=== PATIENT | female | born 1965 | race Caucasian/White ===

== ENCOUNTER → 2016-09-09 | Outpatient (CLI) | payer OTHER ==
[2015-12-05 15:00] VITALS: BP 98/66
[~2016-09-09] MED LIST: ACET325T16 PO; FERR324T5 PO; GLUC1TAB26 PO; HYDR-2666 PO; HYDR-2678 PO; LEVO500T38 PO; LORA10TA68 PO; METR500T PO; MULT-245 PO
--- NOTE | 2016-09-09 09:33 | RAD ---
DATE: 09/09/2016 EXAM: DIGITAL SCREEN BILAT W/CAD HISTORY: Routine screening COMPARISON: 08/27/2015 This study was interpreted with the benefit of Computerized Aided Detection (CAD). FINDINGS: The breasts are heterogeneously dense. No new or enlarging breast densities are seen. Numerous microcalcifications are again noted in both breasts. The distribution suggests a benign etiology such as causing adenosis. IMPRESSION: Stable mammograms without evidence of malignancy. BI-RADS CATEGORY: 2 BENIGN FINDING(S) RECOMMENDED FOLLOW-UP: 12M 12 MONTH FOLLOW-UP PQRS compliance statement: Patient information was entered into a reminder system with a target due date for the next mammogram. Mammography is a sensitive method for finding small breast cancers, but it does not detect them all and is not a substitute for careful clinical examination. A negative mammogram does not negate a clinically suspicious finding and should not result in delay in biopsying a clinically suspicious abnormality. "Our facility is accredited by the [employer] Mammography Program."
== END | disposition home or self-care (01) ==
LOC: MAMMO 08:00
PROVIDERS: ATTEND Family Medicine
DX: Z12.31 Encounter for screening mammogram for malignant neoplasm of breast (principal)
CPT/HCPCS: G0202; 77067

== ENCOUNTER 2017-01-15 08:17 | Emergency (ER) | payer OTHER ==
[~2017-01-15] VITALS: Ht 165.1 cm; Wt 74.8 kg
[~2017-01-15 08:17] MED LIST changes: -HYDR-2666 PO; +HYDR-2758 PO; -LEVO500T38 PO; +LEVO500T59 PO
--- NOTE | 2017-01-15 08:19 | PHYS DOC ---
Past Medical History Past Medical History: Diverticulosis Past Surgical History: , Other Additional Past Surgical Histo: carpal tunnel, abscess removed, biopsy on face Alcohol Use: None Drug Use: None Adult General Chief Complaint Chief Complaint: EYE PROBLEMS HPI HPI Patient is a 51 year old who presents with right eyelid swelling/ wound. She states it started 4 days ago when she saw Dr. Pichardo yesterday was started on Augmentin. She's had 2 doses of medicine but the wound is been getting larger. She denies any fevers chills nausea vomiting. She denies any pain with extraocular movements. She states her last tetanus shot was within the last 5 years. She denies any past medical history or on any medications or have allergies medications. Review of Systems Review of Systems Constitutional: Denies fever or chills [] Eyes: Denies change in visual acuity, redness, or eye pain [] HENT: Denies nasal congestion or sore throat [] Respiratory: Denies cough or shortness of breath [] Cardiovascular: No additional information not addressed in HPI [] GI: Denies abdominal pain, nausea, vomiting, bloody stools or diarrhea [] : Denies dysuria or hematuria [] Musculoskeletal: Denies back pain or joint pain [] Integument: Denies rash or skin lesions [] Neurologic: Denies headache, focal weakness or sensory changes [] Endocrine: Denies polyuria or polydipsia [] Current Medications Current Medications Current Medications Medications (Trade) Dose Ordered Sig/Ann Start Time Stop Time Status Last Admin Dose Admin Clindamycin Phosphate 50 ml @ 100 mls/hr 1X ONCE 01/15/17 08:45 01/15/17 09:14 DC 01/15/17 09:01 100 MLS/HR Lidocaine/Sodium Bicarbonate (Buffered Lidocaine 1%) 20 ml 1X ONCE 01/15/17 08:45 01/15/17 08:46 DC 01/15/17 09:02 20 ML Allergies Allergies Allergies Coded Allergies Type Severity Reaction Last Updated Verified banana Allergy Severe SWELLING 02/05/14 Yes walnut Allergy Severe 12/03/15 Yes [place] And Derivatives Allergy Intermediate Itching 02/05/14 Yes latex Allergy Intermediate Itching 02/05/14 Yes Physical Exam Physical Exam Constitutional: Well developed, well nourished, no acute distress, non-toxic appearance. [] HENT: Normocephalic, atraumatic, bilateral external ears normal, oropharynx moist, no oral exudates, nose normal. [] Eyes: PERRLA, EOMI, conjunctiva normal, no discharge. [] Neck: Normal range of motion, no tenderness, supple, no stridor. [] Cardiovascular:Heart rate regular rhythm, no murmur [] Lungs & Thorax: Bilateral breath sounds clear to auscultation [] Abdomen: Bowel sounds normal, soft, no tenderness, no masses, no pulsatile masses. [] Skin: Warm, dry, 1 x 1 cm erythema and nodule in right upper eyelid. Back: No tenderness, no CVA tenderness. [] Extremities: No tenderness, no cyanosis, no clubbing, ROM intact, no edema. [] Neurologic: Alert and oriented X 3, normal motor function, normal sensory function, no focal deficits noted. [] Psychologic: Affect normal, judgement normal, mood normal. [] Current Patient Data Vital Signs Vital Signs Date Time Temp Pulse Resp B/P (MAP) Pulse Ox O2 Delivery O2 Flow Rate FiO2 01/15/17 08:20 98.4 71 21 95 Room Air 98.4 Lab Values Laboratory Tests Test 01/15/17 09:00 White Blood Count 7.7 x10^3/uL (4.0-11.0) Red Blood Count 4.14 x10^6/uL (3.50-5.40) Hemoglobin 13.2 g/dL (12.0-15.5) Hematocrit 38.1 % (36.0-47.0) Mean Corpuscular Volume 92 fL (79-100) Mean Corpuscular Hemoglobin 32 pg (25-35) Mean Corpuscular Hemoglobin Concent 35 g/dL (31-37) Red Cell Distribution Width 13.1 % (11.5-14.5) Platelet Count 260 x10^3/uL (140-400) Neutrophils (%) (Auto) 69 % (31-73) Lymphocytes (%) (Auto) 15 % (24-48) L Monocytes (%) (Auto) 10 % (0-9) H Eosinophils (%) (Auto) 4 % (0-3) H Basophils (%) (Auto) 1 % (0-3) Neutrophils # (Auto) 5.3 x10^3uL (1.8-7.7) Lymphocytes # (Auto) 1.2 x10^3/uL (1.0-4.8) Monocytes # (Auto) 0.8 x10^3/uL (0.0-1.1) Eosinophils # (Auto) 0.3 x10^3/uL (0.0-0.7) Basophils # (Auto) 0.1 x10^3/uL (0.0-0.2) Sodium Level 139 mmol/L (136-145) Potassium Level 3.8 mmol/L (3.5-5.1) Chloride Level 106 mmol/L (98-107) Carbon Dioxide Level 29 mmol/L (21-32) Anion Gap 4 (6-14) L Blood Urea Nitrogen 13 mg/dL (7-20) Creatinine 0.9 mg/dL (0.6-1.0) Estimated GFR (Cockcroft-Gault) 66.0 BUN/Creatinine Ratio 14 (6-20) Glucose Level 93 mg/dL (70-99) Calcium Level 9.0 mg/dL (8.5-10.1) Total Bilirubin 0.6 mg/dL (0.2-1.0) Aspartate Amino Transferase (AST) 15 U/L (15-37) Alanine Aminotransferase (ALT) 31 U/L (14-59) Alkaline Phosphatase 53 U/L (46-116) Total Protein 7.3 g/dL (6.4-8.2) Albumin 3.8 g/dL (3.4-5.0) Albumin/Globulin Ratio 1.1 (1.0-1.7) Laboratory Tests 01/15/17 09:00 Laboratory Tests 01/15/17 09:00 EKG EKG [] Radiology/Procedures Radiology/Procedures [] Impressions: Left eyelid cellulitis/abscess Course & Med Decision Making Course & Med Decision Making Pertinent Labs and Imaging studies reviewed. (See chart for details) Patient has a swollen right eyelid of which 1 mL of lidocaine was injected and then a 16-gauge needle was then inserted with a small amount of purulent discharge obtained. Wound culture was sent. Patient's labs did not show any acute abnormality. She doesn't have pain with extraocular movement therefore do not believe that this is a orbital cellulitis and is just isolated to eyelid. She was given 900 mg IV clindamycin and is being discharged home she has Augmentin that she started on yesterday's had 2 doses. She does not have a fever or leukocytosis and she is feeling better now. I've offered her pain meds but she states it just makes her sick and she'll continue taking her Tylenol. She is to follow-up with Dr. Pichardo on Wednesday. She is instructed return back to ER for pain is worse she developed fevers or other concerns. Dragon Disclaimer Dragon Disclaimer This electronic medical record was generated, in whole or in part, using a voice recognition dictation system. Departure Departure Impression: Primary Impression: Cellulitis Disposition: HOME, SELF-CARE Condition: STABLE Referrals: MARILEE PICHARDO MD (PCP) Patient Instructions: Abscess, Care After Additional Instructions: You have a small abscess of your right upper eyelid. We were able to drain some purulent material out of this and sent for wound culture. You are currently on antibiotics which he did continue taking those instructed. We did give U1 dose of IV clindamycin. You should start feeling better. If you develop fevers, worsening pain or swelling of your eyelid, change in vision, pain when you look side to side or move your eyes and you need to return back to emergency department. You will need to follow-up with your primary care physician on Wednesday. Problem Qualifiers Primary Impression: Cellulitis Site of cellulitis: face Qualified Codes: L03.211 - Cellulitis of face JAIRON BRISCOE MD Jan 15, 2017 08:19
[2017-01-15] MEDS ORDERED: LIDOCAINE 1% / SOD BICARB 8.4% 20 ML VIAL. IJ ONE (08:45)
[2017-01-15] MEDS ORDERED: CLINDAMYCIN 900MG PREMIX 50 ML IV ONE (08:45)
[2017-01-15 09:21] LABS: BASO # 0.1 x10^3/uL (0.0-0.2); BASO % 1 % (0-3); EOS % 4 % (0-3); HEMATOCRIT 38.1 % (36.0-47.0); HEMOGLOBIN 13.2 g/dL (12.0-15.5); LYMPH # 1.2 x10^3/uL (1.0-4.8); LYMPH % 15 % (24-48); MEAN CORPUSCULAR HEMOGLOBIN 32 pg (25-35); MEAN CORPUSCULAR HGB CONC 35 g/dL (31-37); MEAN CORPUSCULAR VOLUME 92 fL (79-100); MONO % 10 % (0-9); NEUT % 69 % (31-73); PLATELET COUNT 260 x10^3/uL (140-400); RED BLOOD COUNT 4.14 x10^6/uL (3.50-5.40); RED CELL DISTRIBUTION WIDTH 13.1 % (11.5-14.5); WHITE BLOOD COUNT 7.7 x10^3/uL (4.0-11.0)
[2017-01-15 09:41] LABS: CREATININE 0.9 mg/dL (0.6-1.0); POTASSIUM 3.8 mmol/L (3.5-5.1)
[2017-01-15 09:47] LABS: ALBUMIN 3.8 g/dL (3.4-5.0); ALBUMIN/GLOBULIN RATIO 1.1 (1.0-1.7); TOTAL BILIRUBIN 0.6 mg/dL (0.2-1.0); TOTAL PROTEIN 7.3 g/dL (6.4-8.2)
[2017-01-15 10:42] VITALS: BP 107/69
== END 2017-01-15 10:45 | disposition home or self-care (01) ==
LOC: ER 08:17
DX: H00.036 Abscess of eyelid left eye, unspecified eyelid (principal); Z91.040 Latex allergy status; Z91.018 Allergy to other foods
CPT/HCPCS: 36415; 80053; 85027; 87070; 87186; 87205; 96365; 99284; J3490

== ENCOUNTER 2017-03-21 08:28 | Emergency (ER) | payer OTHER ==
[~2017-03-21] VITALS: Ht 166.4 cm; Wt 74.8 kg
[2017-03-21] MEDS ORDERED: IV NORMAL SALINE 1000ML BAG 1,000 ML IV SCH (08:39)
[2017-03-21] MEDS ORDERED: CLINDAMYCIN 900MG PREMIX 50 ML IV ONE (08:45)
[2017-03-21] MEDS ORDERED: 0.9 % SODIUM CHLORIDE 10 ML DISP.SYRIN. IV PRN (08:45)
[2017-03-21] MEDS ORDERED: ONDANSETRON PF 4 MG/2 ML VIAL. IV ONE (08:45)
--- NOTE | 2017-03-21 08:46 | PHYS DOC ---
Past Medical History Past Medical History: Diverticulosis, Hypotension Past Surgical History: , Other Additional Past Surgical Histo: carpal tunnel, abscess removed, biopsy on face Alcohol Use: None Drug Use: None Adult General Chief Complaint Chief Complaint: FACE PROBLEM HPI HPI This is a very pleasant 51-year-old female who presents with cellulitis and possible abscess to the left cheek of the face. This particular lesion began 4- 5 days ago noted a small raised area on her face has progressively gotten more swollen with spontaneous drainage of a purulent discharge with generalized aches and a mild headache. Patient was seen by her physician Dr. Magdaleno placed on now her third course of antibiotics. She is on Bactroban ointment and Bactrim orally. She is on her third day of treatment. She's had spontaneous drainage from the lesion on her face but no significant proven in her pain. Patient denies any fevers, chills or other systemic symptoms at this time only increasing facial pain with direct pressure. Pain is presently at 8 of 10 she can only take oral Tylenol as she cannot tolerate NSAIDs as they cause an upset stomach. Patient has now been on her third course of antibiotics as described above she is prone to course of Augmentin and clindamycin for prior lesions on her cheek, eyelid and armpit. 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 sHe is nondiabetic and is not immunocompromised Review of Systems Review of Systems Constitutional: Denies fever or chills [] Eyes: Denies change in visual acuity, redness, or eye pain [] HENT: Denies nasal congestion or sore throat [] Respiratory: Denies cough or shortness of breath [] Cardiovascular: No additional information not addressed in HPI [] GI: Denies abdominal pain, nausea, vomiting, bloody stools or diarrhea [] : Denies dysuria or hematuria [] Musculoskeletal: Denies back pain or joint pain [] Integument: Is had multiple skin lesions that this in the past. Neurologic: sHe has has a mild frontal headache Endocrine: Denies polyuria or polydipsia [] Current Medications Current Medications Current Medications Medications (Trade) Dose Ordered Sig/Ann Start Time Stop Time Status Last Admin Dose Admin Clindamycin Phosphate 50 ml @ 100 mls/hr 1X ONCE 03/21/17 08:45 03/21/17 09:14 DC 03/21/17 09:03 100 MLS/HR Hydromorphone HCl (Dilaudid) 1 mg PRN Q15MIN PRN 03/21/17 08:45 03/22/17 08:44 03/21/17 08:59 1 MG Iohexol (Omnipaque 300 Mg/ml) 60 ml 1X ONCE 03/21/17 09:30 03/21/17 09:31 DC 03/21/17 09:42 60 ML Ondansetron HCl (Zofran) 4 mg 1X ONCE 03/21/17 08:45 03/21/17 08:46 DC 03/21/17 08:57 4 MG Sodium Chloride (Normal Saline Flush) 10 ml QSHIFT PRN 03/21/17 08:45 Allergies Allergies Allergies Coded Allergies Type Severity Reaction Last Updated Verified banana Allergy Severe SWELLING 02/05/14 Yes [place] Allergy Severe 12/03/15 Yes [place] And Derivatives Allergy Intermediate Itching 02/05/14 Yes latex Allergy Intermediate Itching 02/05/14 Yes I S O L A T I O N *CONTACT* Allergy Unknown 01/20/17 Yes NSAIDS (Non-Steroidal Anti-Inflamma Adverse Reaction Unknown Nausea and Vomiting 03/21/17 Yes Physical Exam Physical Exam Of the vital signs recorded on the chart they're within normal limits. Constitutional: Well developed, well nourished, uncomfortable with obvious swollen cheek mild induration noted with an area of drainage. At discharge from the center of the lesion. HENT: Normocephalic, atraumatic, bilateral external ears normal, oropharynx moist, no oral exudates, nose normal. [] Eyes: PERRLA, EOMI, conjunctiva normal, no discharge. [] Neck: Normal range of motion, no tenderness, supple, no stridor. [] Cardiovascular:Heart rate regular rhythm, no murmur [] Lungs & Thorax: Bilateral breath sounds clear to auscultation [] Abdomen: Bowel sounds normal, soft, no tenderness, no masses, no pulsatile masses. [] Skin: Has a large area of erythema measuring 3 cm x 2 centers in length and width with an area of indurated tissue a small denuded ulcer in the center of the tissue with no active drainage. There is purulent discharge noted at the point opening in the skin. There is no fluctuance no obvious signs of abscess Back: No tenderness, no CVA tenderness. [] Extremities: No tenderness, no cyanosis, no clubbing, ROM intact, no edema. [] Neurologic: Alert and oriented X 3, normal motor function, normal sensory function, no focal deficits noted. [] Psychologic: Affect normal, judgement normal, mood normal. [] Current Patient Data Vital Signs Vital Signs Date Time Temp Pulse Resp B/P (MAP) Pulse Ox O2 Delivery O2 Flow Rate FiO2 03/21/17 08:59 18 97 Room Air 03/21/17 08:33 97.9 66 119/82 (94) 97.9 Lab Values Laboratory Tests Test 03/21/17 08:51 White Blood Count 9.2 x10^3/uL (4.0-11.0) Red Blood Count 4.33 x10^6/uL (3.50-5.40) Hemoglobin 13.7 g/dL (12.0-15.5) Hematocrit 39.9 % (36.0-47.0) Mean Corpuscular Volume 92 fL (79-100) Mean Corpuscular Hemoglobin 32 pg (25-35) Mean Corpuscular Hemoglobin Concent 34 g/dL (31-37) Red Cell Distribution Width 12.9 % (11.5-14.5) Platelet Count 313 x10^3/uL (140-400) Neutrophils (%) (Auto) 76 % (31-73) H Lymphocytes (%) (Auto) 14 % (24-48) L Monocytes (%) (Auto) 8 % (0-9) Eosinophils (%) (Auto) 2 % (0-3) Basophils (%) (Auto) 1 % (0-3) Neutrophils # (Auto) 7.0 x10^3uL (1.8-7.7) Lymphocytes # (Auto) 1.3 x10^3/uL (1.0-4.8) Monocytes # (Auto) 0.7 x10^3/uL (0.0-1.1) Eosinophils # (Auto) 0.1 x10^3/uL (0.0-0.7) Basophils # (Auto) 0.0 x10^3/uL (0.0-0.2) Erythrocyte Sedimentation Rate 23 (0-25) Sodium Level 139 mmol/L (136-145) Potassium Level 3.8 mmol/L (3.5-5.1) Chloride Level 102 mmol/L (98-107) Carbon Dioxide Level 26 mmol/L (21-32) Anion Gap 11 (6-14) Blood Urea Nitrogen 11 mg/dL (7-20) Creatinine 1.1 mg/dL (0.6-1.0) H Estimated GFR (Cockcroft-Gault) 52.4 Glucose Level 101 mg/dL (70-99) H Calcium Level 9.1 mg/dL (8.5-10.1) Total Bilirubin 0.8 mg/dL (0.2-1.0) Direct Bilirubin 0.2 mg/dL (0.0-0.2) Aspartate Amino Transferase (AST) 20 U/L (15-37) Alanine Aminotransferase (ALT) 45 U/L (14-59) Alkaline Phosphatase 61 U/L (46-116) C-Reactive Protein, Quantitative 5.4 mg/L (0-3.3) H Total Protein 8.0 g/dL (6.4-8.2) Albumin 4.2 g/dL (3.4-5.0) Laboratory Tests 03/21/17 08:51 Laboratory Tests 03/21/17 08:51 EKG EKG [] Radiology/Procedures Radiology/Procedures [] [address] [place] [address] IMAGING REPORT Signed PATIENT: KEITH CONN ACCOUNT: [id number] : 1965 LOCATION: ER AGE: 51 SEX: F EXAM STATUS: REG ER ORD. PHYSICIAN: MARTHA GUEVARA MD REASON: facial abscess versus cellulitis PROCEDURE: CT MAXILLOFACIAL W/CONTRAST Examination: CT maxillofacial with IV contrast History: History of left-sided facial swelling. Comparison: None available Technique: Axial CT images of the face were performed with IV contrast. Coronal and sagittal reformats are performed. PQRS Compliance Statement: One or more of the following individualized dose reduction techniques were utilized for this examination: 1. Automated exposure control 2. Adjustment of the mA and/or kV according to patient size 3. Use of iterative reconstruction technique Findings: The bilateral orbital globes appear intact. The parotid glands grossly appears unremarkable. The visualized submandibular glands grossly appears unremarkable. There is mild to moderate inflammatory fat stranding identified in the left cheek region lateral to and anterior to the left mandible without obvious focal fluid collection. Small enlarged lymph nodes identified in the submandibular region with the largest measuring 1.5 cm. Evaluation of the mandible and maxilla is limited due to dental streak artifact. The visualized paranasal sinuses, mastoid air cells are clear. Impression: 1. Mild to moderate inflammatory fat stranding identified in the left cheek region anterior and lateral to the mandible likely secondary to cellulitis without focal fluid collection to suggest an abscess however evaluation is limited due to dental streak artifact. 2. Mildly enlarged left submandibular lymph nodes probably reactive. DICTATED and SIGNED BY: MATT HUNT MD DATE: 03/21/17 0956 CC: MARTHA GUEVARA MD; MARILEE AQUINO MD ~ Course & Med Decision Making Course & Med Decision Making Pertinent Labs and Imaging studies reviewed. (See chart for details) patient presented with what I presumed cellulitis of the face but given her duration of symptoms although it is draining spontaneously might persist concern was a abscess underneath the tissue. Patient was given IV fluids, antibiotics to include 900 mg of IV clindamycin, antiemetics and pain meds should make her feel markedly better. Patient tells me that their symptoms given during CC are improved. We reviewed labs and radiology reports with patient and any family at bedside. We discussed specifically at 10:20 AM that her white count is normal her CRP is only mildly elevated, and her ESR is normal. Patient was given the option of being admitted to the hospital for IV antibiotics and pain meds but the and prefer to go home and try to treat this as an outpatient. I referred her back to her primary care physician after 24-48 hours of management and continued antibiotics and referral to possible plastic surgery for a local I&D if necessary if the abscess or saline is continued to progress. Impression: Cellulitis of the face with no evidence of abscess at this time. Disposition: PCP follow-up with wound care in the next 24-48 hours. [] Dragon Disclaimer Dragon Disclaimer This electronic medical record was generated, in whole or in part, using a voice recognition dictation system. Departure Departure Impression: Primary Impression: Facial cellulitis Disposition: HOME, SELF-CARE Condition: IMPROVED Referrals: MARILEE AQUINO MD (PCP) Patient Instructions: Cellulitis Additional Instructions: My discharge plan Follow up: In addition patient is asked to followup with their primary doctor, within a week for followup examination and to address patient's ongoing medical conditions. These follow-up in the next 24-48 hours for wound check. Patient is advised that in the Emergency Department primary complaints are addressed and only in light of known signs and symptoms. Patient should return immediately to the emergency department if new signs and symptoms develop or patient's condition worsens in any way. At time of discharge patient was in stable condition and had verbalized understanding of the discharge instructions. Scripts Hydrocodone Bit/Acetaminophen (HYDROCODONE-APAP 5-325 ) 1 Each Tablet 1-2 TAB PO PRN Q6HRS Y for PAIN for 5 Days, #10 TAB 0 Refills Prov: MARTHA GUEVARA MD 03/21/17 Ondansetron (ZOFRAN ODT) 4 Mg Tab.rapdis 4 MG PO BID Y for NAUSEA/VOMITING for 7 Days, #14 TAB Prov: MARTHA GUEVARA MD 03/21/17 Clindamycin Hcl (CLINDAMYCIN HCL) 300 Mg Capsule 300 MG PO QID for 10 Days, #40 CAP Prov: MARTHA GUEVARA MD 03/21/17 MARTHA GUEVARA MD Mar 21, 2017 08:46
[2017-03-21] MEDS: HYDROmorphone 2 MG/ML VIAL IV/SQ PRN ×2 (08:59→10:50)
[2017-03-21 09:06] LABS: BASO % 1 % (0-3); EOS % 2 % (0-3); HEMATOCRIT 39.9 % (36.0-47.0); HEMOGLOBIN 13.7 g/dL (12.0-15.5); LYMPH # 1.3 x10^3/uL (1.0-4.8); LYMPH % 14 % (24-48); MEAN CORPUSCULAR HEMOGLOBIN 32 pg (25-35); MEAN CORPUSCULAR HGB CONC 34 g/dL (31-37); MEAN CORPUSCULAR VOLUME 92 fL (79-100); MONO % 8 % (0-9); NEUT % 76 % (31-73); PLATELET COUNT 313 x10^3/uL (140-400); RED BLOOD COUNT 4.33 x10^6/uL (3.50-5.40); RED CELL DISTRIBUTION WIDTH 12.9 % (11.5-14.5); WHITE BLOOD COUNT 9.2 x10^3/uL (4.0-11.0)
[2017-03-21 09:12] LABS: CALCIUM 9.1 mg/dL (8.5-10.1); CREATININE 1.1 mg/dL (0.6-1.0); GFR 52.4; POTASSIUM 3.8 mmol/L (3.5-5.1)
[2017-03-21 09:17] LABS: ALBUMIN 4.2 g/dL (3.4-5.0); C-REACTIVE PROTEIN 5.4 mg/L (0-3.3); DIRECT BILIRUBIN 0.2 mg/dL (0.0-0.2); TOTAL BILIRUBIN 0.8 mg/dL (0.2-1.0)
[2017-03-21] MEDS ORDERED: IOHEXOL 300 MG/ML 75 ML VIAL IV ONE (09:30)
--- NOTE | 2017-03-21 10:02 | RAD ---
Examination: CT maxillofacial with IV contrast History: History of left-sided facial swelling. Comparison: None available Technique: Axial CT images of the face were performed with IV contrast. Coronal and sagittal reformats are performed. PQRS Compliance Statement: One or more of the following individualized dose reduction techniques were utilized for this examination: 1. Automated exposure control 2. Adjustment of the mA and/or kV according to patient size 3. Use of iterative reconstruction technique Findings: The bilateral orbital globes appear intact. The parotid glands grossly appears unremarkable. The visualized submandibular glands grossly appears unremarkable. There is mild to moderate inflammatory fat stranding identified in the left cheek region lateral to and anterior to the left mandible without obvious focal fluid collection. Small enlarged lymph nodes identified in the submandibular region with the largest measuring 1.5 cm. Evaluation of the mandible and maxilla is limited due to dental streak artifact. The visualized paranasal sinuses, mastoid air cells are clear. Impression: 1. Mild to moderate inflammatory fat stranding identified in the left cheek region anterior and lateral to the mandible likely secondary to cellulitis without focal fluid collection to suggest an abscess however evaluation is limited due to dental streak artifact. 2. Mildly enlarged left submandibular lymph nodes probably reactive.
[2017-03-21] MEDS ORDERED: HYDR-2758 PO (10:30)
[2017-03-21] MEDS ORDERED: ONDA4TAB10 PO (10:30)
[2017-03-21] MEDS ORDERED: CLIN300C8 PO (10:30)
[2017-03-21 10:54] VITALS: BP 117/71
[2017-03-24] MEDS ORDERED: SULF1TAB24 PO (09:00)
== END 2017-03-21 11:08 | disposition home or self-care (01) ==
LOC: ER 08:28
DX: L03.211 Cellulitis of face (principal); I95.9 Hypotension, unspecified; Z88.6 Allergy status to analgesic agent; Z91.041 Radiographic dye allergy status; Z91.02 Food additives allergy status; Z91.040 Latex allergy status; Z91.018 Allergy to other foods
CPT/HCPCS: 36415; 70487; 80048; 80076; 85025; 85651; 86140; 96365; 96375; 96376; 99285; J1170; J2405; J3490; J7030; Q9967

== ENCOUNTER 2017-03-21 22:42 | Inpatient (IN) | payer OTHER ==
[~2017-03-21] VITALS: Ht 165.1 cm; Wt 73.5 kg
[~2017-03-21 22:42] MED LIST changes: +CLIN300C8 PO; +ONDA4TAB10 PO
--- NOTE | 2017-03-21 23:19 | PHYS DOC ---
Past Medical History Past Medical History: Diverticulosis, Hypotension Past Surgical History: , Other Additional Past Surgical Histo: carpal tunnel, abscess removed, biopsy on face Alcohol Use: None Drug Use: None Adult General Chief Complaint Chief Complaint: NAUSEA/VOMITING/DIARRHA HPI HPI Patient is a 51 year old female who presents with nausea and vomiting and inability to take antibiotics. Patient was seen here earlier today where she was evaluated for an abscess on the left side of her face. She had a CT scan done (no formation of an abscess yet) and CRP 5.4. She was dosed with IV antibiotics here and home with scripts. She states she was "vomiting all day" and couldn't keep down any of her meds. She has had multiple abscesses but this one started 4-5 days ago. No fever. No difficulty swallowing. No drooling. Review of Systems Review of Systems Constitutional: Denies fever or chills Eyes: Denies change in visual acuity, redness, or eye pain HENT: Denies nasal congestion or sore throat; no drooling (see HPI) Respiratory: Denies cough or shortness of breath Cardiovascular: No chest pain. GI: Denies abdominal pain, POS nausea, vomiting, NO bloody stools or diarrhea : Denies dysuria or hematuria Musculoskeletal: Denies back pain or joint pain Integument: Denies rash or skin lesions Neurologic: Denies headache, focal weakness or sensory changes Current Medications Current Medications Current Medications Medications (Trade) Dose Ordered Sig/Ann Start Time Stop Time Status Last Admin Dose Admin Clindamycin Phosphate 50 ml @ 100 mls/hr Q8HRS 03/22/17 00:00 03/22/17 00:05 100 MLS/HR Fentanyl Citrate (Fentanyl 2ml Vial) 50 mcg 1X ONCE 03/21/17 23:30 03/21/17 23:31 DC Morphine Sulfate 2 mg PRN Q2HR PRN 03/21/17 23:45 03/22/17 23:44 Ondansetron HCl (Zofran) 4 mg 1X ONCE 03/21/17 23:30 03/21/17 23:31 DC 03/22/17 00:05 4 MG Potassium Chloride/Dextrose/ Sod Cl 1,000 ml @ 125 mls/hr 1X ONCE 03/22/17 00:00 03/22/17 07:59 03/22/17 01:52 125 MLS/HR Sodium Chloride 1,000 ml @ 1,000 mls/hr Q1H 03/21/17 23:30 03/22/17 00:29 DC 03/22/17 00:02 1,000 MLS/HR Allergies Allergies Allergies Coded Allergies Type Severity Reaction Last Updated Verified banana Allergy Severe SWELLING 02/05/14 Yes walnut Allergy Severe 12/03/15 Yes [place]eadle And Derivatives Allergy Intermediate Itching 02/05/14 Yes latex Allergy Intermediate Itching 02/05/14 Yes I S O L A T I O N *CONTACT* Allergy Unknown 01/20/17 Yes Physical Exam Physical Exam Constitutional: Well developed, well nourished, no acute distress, non-toxic appearance. HENT: Normocephalic, atraumatic, bilateral external ears normal, oropharynx moist, no oral exudates, nose normal. Pointing furuncle to left cheek; swelling and induration of left buccal space. No fluctuance noted yet; no spontaneous drainage. no drooling or trismus. Eyes: PERRLA, EOMI, conjunctiva normal, no discharge. Neck: Normal range of motion, no tenderness, supple, no stridor. Cardiovascular:Heart rate regular rhythm, no murmur Lungs & Thorax: Bilateral breath sounds clear to auscultation Abdomen: Bowel sounds normal, soft, no tenderness, no masses, no pulsatile masses. Skin: Warm, dry, no erythema, no rash. Back: No tenderness, no CVA tenderness. Extremities: No tenderness, no cyanosis, no clubbing, ROM intact, no edema. Neurologic: Alert and oriented X 3, normal motor function, normal sensory function, no focal deficits noted. Current Patient Data Vital Signs Vital Signs Date Time Temp Pulse Resp B/P (MAP) Pulse Ox O2 Delivery O2 Flow Rate FiO2 03/21/17 23:58 86 110/71 (84) 97 Room Air 03/21/17 23:20 98.0 18 98.0 Lab Values Laboratory Tests Test 03/21/17 23:00 White Blood Count 10.5 x10^3/uL (4.0-11.0) Red Blood Count 4.21 x10^6/uL (3.50-5.40) Hemoglobin 13.5 g/dL (12.0-15.5) Hematocrit 39.9 % (36.0-47.0) Mean Corpuscular Volume 95 fL (79-100) Mean Corpuscular Hemoglobin 32 pg (25-35) Mean Corpuscular Hemoglobin Concent 34 g/dL (31-37) Red Cell Distribution Width 12.8 % (11.5-14.5) Platelet Count 303 x10^3/uL (140-400) Neutrophils (%) (Auto) 87 % (31-73) H Lymphocytes (%) (Auto) 7 % (24-48) L Monocytes (%) (Auto) 5 % (0-9) Eosinophils (%) (Auto) 0 % (0-3) Basophils (%) (Auto) 0 % (0-3) Neutrophils # (Auto) 9.1 x10^3uL (1.8-7.7) H Lymphocytes # (Auto) 0.8 x10^3/uL (1.0-4.8) L Monocytes # (Auto) 0.5 x10^3/uL (0.0-1.1) Eosinophils # (Auto) 0.0 x10^3/uL (0.0-0.7) Basophils # (Auto) 0.0 x10^3/uL (0.0-0.2) Segmented Neutrophils % 81 % (35-66) H Band Neutrophils % 4 % (0-9) Lymphocytes % 10 % (24-48) L Monocytes % 5 % (0-10) Toxic Vacuolation Slight Platelet Estimate Adequate (ADEQUATE) Lactic Acid Level 1.1 mmol/L (0.4-2.0) Laboratory Tests 03/21/17 23:00 Course & Med Decision Making Course & Med Decision Making Evaluated patient; reviewed record from this am. IV NS, IV fentanyl and IV Zofran. Dosed here with IV CLindamycin (last dose this am). She is unable to tolerate outpatient treatment and management. As this is a facial infection concern that untreated it may cause a potential airway difficulty. NO evidence at this time of airway disruption. Spoke with Dr. Kylee dawn: admission and she accepted. I have spoken with the patient and/or caregivers. I have explained the patient' s condition, diagnosis and treatment plan based on the information available to me at this time. I have answered the patient's and/or caregiver's questions and addressed any concerns. The patient and/or caregivers have as good an understanding of the patient's diagnosis, condition and treatment plan as can be expected at this point. The patient has been stabilized within the capability of the emergency department. The patient will be transported for further care and management or will be moved to an observation or inpatient service. I have communicated with the staff or medical practitioner taking over this patient's care. Dragon Disclaimer Dragon Disclaimer This electronic medical record was generated, in whole or in part, using a voice recognition dictation system. Departure Departure Impression: Primary Impression: Facial cellulitis Additional Impressions: Nausea and vomiting Failure of outpatient treatment Disposition: ADMITTED INPATIENT Admitting Physician: Alexa Pichardo Condition: STABLE Referrals: ALEXA PICHARDO MD (PCP) Problem Qualifiers Additional Impressions: Nausea and vomiting Vomiting type: unspecified Vomiting Intractability: intractable Qualified Codes: R11.2 - Nausea with vomiting, unspecified JORGE BOWIE MD Mar 21, 2017 23:19
[2017-03-21] MEDS ORDERED: ONDANSETRON PF 4 MG/2 ML VIAL. IV ONE (23:30)
[2017-03-21] MEDS ORDERED: IV NORMAL SALINE 1000ML BAG 1,000 ML IV SCH (23:30)
[2017-03-21] MEDS ORDERED: fentaNYL PF VIAL 100 MCG/2 ML VIAL IV ONE (23:30)
[2017-03-21 23:36] LABS: BASO % 0 % (0-3); EOS % 0 % (0-3); HEMATOCRIT 39.9 % (36.0-47.0); HEMOGLOBIN 13.5 g/dL (12.0-15.5); LYMPH # 0.8 x10^3/uL (1.0-4.8); LYMPH % 7 % (24-48); MEAN CORPUSCULAR HEMOGLOBIN 32 pg (25-35); MEAN CORPUSCULAR HGB CONC 34 g/dL (31-37); MEAN CORPUSCULAR VOLUME 95 fL (79-100); MONO % 5 % (0-9); NEUT % 87 % (31-73); PLATELET COUNT 303 x10^3/uL (140-400); RED BLOOD COUNT 4.21 x10^6/uL (3.50-5.40); RED CELL DISTRIBUTION WIDTH 12.8 % (11.5-14.5); WHITE BLOOD COUNT 10.5 x10^3/uL (4.0-11.0)
[2017-03-21] MEDS ORDERED: MORPHINE SULFATE 2 MG/ML DISP.SYRIN. IV PRN (23:45)
[2017-03-22] VITALS (7 sets, daily range): BP systolic 88–106; BP diastolic 53–62
[2017-03-22] MEDS: CLINDAMYCIN 900MG PREMIX 50 ML IV SCH ×4 (00:05→22:12)
[2017-03-22] MEDS: POTASSIUM CL 20MEQ D5-0.45NACL 1,000 ML IV ONE ×2 (00:58→01:52)
[2017-03-22 02:31] LABS: PLT ESTIMATE ADEQUATE (ADEQUATE); TOXIC VACUOLATION SLIGHT
[2017-03-22] MEDS ORDERED: CLINDAMYCIN 900MG PREMIX 50 ML IV SCH (06:00)
--- NOTE | 2017-03-22 08:14 | PDOC1 ---
History and Physical Date of Admission Date of Admission DATE: 03/21/17 Identification/Chief Complaint Chief Complaint Facial Pain, Vomiting Problems: Source Source: Patient History of Present Illness History of Present Illness Pt says that she felt some facial swelling on Wednesday. Came in to see Dr. Pichardo on Wednesday and was started on oral antibiotics. Pain continued to worsen and yesterday pt was no longer able to keep down her antibiotics. Swelling continued to worsen. Had some drainage yesterday. Initially came in the morning and was given a dose of IV abx, but by the evening needed to return because she was still vomiting. Pt says that currently her head is pounding; normally takes tylenol for pain. Regular breakfast tray came in while I was talking to pt; says that she has an appetite and is not currently nauseous, would like to try regular diet. Past Medical History Cardiovascular: No pertinent hx Pulmonary: Other (Pulmonary nodule) GI: GERD Heme/Onc: No pertinent hx Hepatobiliary: No pertinent hx Psych: No pertinent hx Rheumatologic: No pertinent hx Infectious disease: No pertinent hx ENT: Allergic Rhinitis Renal/: No pertinent hx Endocrine: No pertinent hx Dermatology: Cellulitis Past Surgical History Past Surgical History: , Other (carpal tunnel release, cyst removal, wisdom teeth extraction) Family History Family History: Cancer (breast, prostate, esophageal), Diabetes, Other Social History Smoke: No ALCOHOL: none Drugs: None Current Problem List Problem List Problems Medical Problems: (1) Facial cellulitis Status: Acute (2) Failure of outpatient treatment Status: Acute (3) Nausea and vomiting Status: Acute Problems: Current Medications Current Medications Current Medications Sodium Chloride 1,000 ml @ 1,000 mls/hr Q1H IV Last administered on 03/22/17 00:02; Start 03/21/17 at 23:30; Stop 03/22/17 at 00:29; Status DC Ondansetron HCl (Zofran) 4 mg 1X ONCE IV Last administered on 03/22/17 00:05; Start 03/21/17 at 23:30; Stop 03/21/17 at 23:31; Status DC Fentanyl Citrate (Fentanyl 2ml Vial) 50 mcg 1X ONCE IV ; Start 03/21/17 at 23:30 ; Stop 03/21/17 at 23:31; Status DC Clindamycin Phosphate 50 ml @ 100 mls/hr Q8HRS IV Last administered on 05:04; Start 03/22/17 at 00:00 Morphine Sulfate 2 mg PRN Q2HR PRN IV SEVERE PAIN; Start 03/21/17 at 23:45; Stop 03/22/17 at 23:44 Clindamycin Phosphate 50 ml @ 100 mls/hr Q8HRS IV ; Start 03/22/17 at 06:00; Status UNV Potassium Chloride/Dextrose/ Sod Cl 1,000 ml @ 125 mls/hr 1X ONCE IV Last administered on 03/22/17 01:52; Start 03/22/17 at 00:00; Stop 03/22/17 at 07:59; Status DC Active Scripts Active Reported Multi Vitamin Daily (Multivitamin) 1 Each Tablet 1 Each PO DAILY Rfmpyiwcyn-Rqbmqqbozly-Fxr Tab (Gluc/Willy-Msm#2/C/D3/Gerry/Born) 1 Each Tablet 1 Each PO BID Allergies Allergies: Coded Allergies: banana (Verified Allergy, Severe, SWELLING, 02/05/14) walnut (Verified Allergy, Severe, 12/03/15) [place] And Derivatives (Verified Allergy, Intermediate, Itching, 02/05/14) latex (Verified Allergy, Intermediate, Itching, 02/05/14) I S O L A T I O N *CONTACT* (Verified Allergy, Unknown, 01/20/17) mrsa NSAIDS (Non-Steroidal Anti-Inflamma (Verified Adverse Reaction, Mild, Nausea and Vomiting, 03/22/17) ROS General: No: Chills, Night Sweats PSYCHOLOGICAL ROS: No: Anxiety, Depression Eyes: No Decreased vision, No Eye Pain HEENT: YES: Heacaches, No: Nasal congestion, Sore Throat ALLERGY AND IMMUNOLOGY: No: Hives, Post Nasal Drip Hematological and Lymphatic: No: Bleeding Problems, Blood Clots Respiratory: YES: Cough, No: Shortness of breath, Sputum Changes Cardiovascular: No Chest Pain, No Palpitations, No Orthopnea, No Edema Gastrointestinal: Yes Vomiting, No Nausea, No Abdominal Pain, No Diarrhea, No Constipation Genitourinary: No Dysuria, No Urgency Musculoskeletal: No Joint Pain, No Muscle Pain Neurological: No Impaired Coord/balance, No Numbness/Tingling Skin: Yes Skin Lesion Changes, No Rash Physical Exam General: Alert, Oriented X3, Cooperative, mild distress HEENT: Atraumatic, PERRLA, EOMI, Mucous membr. moist/pink Lungs: Clear to auscultation, Normal air movement Heart: RRR, no rubs, no gallops, no murmurs Abdomen: Normal bowel sounds, Soft, No tenderness, No hepatosplenomegaly Extremities: No clubbing, No cyanosis, No edema Skin: No rashes, No breakdown, Other (sore on left cheek with scab overlying, 2cm of induration, mild fluctuance, TTP, left cheek swollen) Neuro: Normal speech, Normal tone, Cranial nerves 3-12 NL Psych/Mental Status: Mental status NL, Mood NL Vitals Vitals Vital Signs Date Time Temp Pulse Resp B/P (MAP) Pulse Ox O2 Delivery O2 Flow Rate FiO2 03/22/17 03:00 98.1 80 16 100/61 (74) 98 98.1 03/22/17 01:48 Nasal Cannula 2.0 Labs Labs Laboratory Tests Test 03/21/17 23:00 White Blood Count 10.5 x10^3/uL (4.0-11.0) Red Blood Count 4.21 x10^6/uL (3.50-5.40) Hemoglobin 13.5 g/dL (12.0-15.5) Hematocrit 39.9 % (36.0-47.0) Mean Corpuscular Volume 95 fL (79-100) Mean Corpuscular Hemoglobin 32 pg (25-35) Mean Corpuscular Hemoglobin Concent 34 g/dL (31-37) Red Cell Distribution Width 12.8 % (11.5-14.5) Platelet Count 303 x10^3/uL (140-400) Neutrophils (%) (Auto) 87 % (31-73) Lymphocytes (%) (Auto) 7 % (24-48) Monocytes (%) (Auto) 5 % (0-9) Eosinophils (%) (Auto) 0 % (0-3) Basophils (%) (Auto) 0 % (0-3) Neutrophils # (Auto) 9.1 x10^3uL (1.8-7.7) Lymphocytes # (Auto) 0.8 x10^3/uL (1.0-4.8) Monocytes # (Auto) 0.5 x10^3/uL (0.0-1.1) Eosinophils # (Auto) 0.0 x10^3/uL (0.0-0.7) Basophils # (Auto) 0.0 x10^3/uL (0.0-0.2) Segmented Neutrophils % 81 % (35-66) Band Neutrophils % 4 % (0-9) Lymphocytes % 10 % (24-48) Monocytes % 5 % (0-10) Toxic Vacuolation Slight Platelet Estimate Adequate (ADEQUATE) Lactic Acid Level 1.1 mmol/L (0.4-2.0) Laboratory Tests Test 03/21/17 23:00 White Blood Count 10.5 x10^3/uL (4.0-11.0) Red Blood Count 4.21 x10^6/uL (3.50-5.40) Hemoglobin 13.5 g/dL (12.0-15.5) Hematocrit 39.9 % (36.0-47.0) Mean Corpuscular Volume 95 fL (79-100) Mean Corpuscular Hemoglobin 32 pg (25-35) Mean Corpuscular Hemoglobin Concent 34 g/dL (31-37) Red Cell Distribution Width 12.8 % (11.5-14.5) Platelet Count 303 x10^3/uL (140-400) Neutrophils (%) (Auto) 87 % (31-73) Lymphocytes (%) (Auto) 7 % (24-48) Monocytes (%) (Auto) 5 % (0-9) Eosinophils (%) (Auto) 0 % (0-3) Basophils (%) (Auto) 0 % (0-3) Neutrophils # (Auto) 9.1 x10^3uL (1.8-7.7) Lymphocytes # (Auto) 0.8 x10^3/uL (1.0-4.8) Monocytes # (Auto) 0.5 x10^3/uL (0.0-1.1) Eosinophils # (Auto) 0.0 x10^3/uL (0.0-0.7) Basophils # (Auto) 0.0 x10^3/uL (0.0-0.2) Segmented Neutrophils % 81 % (35-66) Band Neutrophils % 4 % (0-9) Lymphocytes % 10 % (24-48) Monocytes % 5 % (0-10) Toxic Vacuolation Slight Platelet Estimate Adequate (ADEQUATE) Lactic Acid Level 1.1 mmol/L (0.4-2.0) VTE Prophylaxis Ordered VTE Prophylaxis Devices: Yes VTE Pharmacological Prophylaxi: No Assessment/Plan Assessment/Plan Pt is a 51yo CF admitted for abscess 1)Abscess- failed outpatient treatment. Currently receiving Clindamycin; will consult General Surgery. Pt has medication available for pain and for nausea. Pt received full tray this morning; will trial. If nausea/vomiting will do CLD AKIRA DE LA O MD Mar 22, 2017 08:13
[2017-03-22] MEDS ORDERED: ONDANSETRON PF 4 MG/2 ML VIAL. IV PRN (08:15)
[2017-03-22] MEDS: ACETAMINOPHEN 500 MG TABLET PO PRN ×2 (08:32→14:03)
--- NOTE | 2017-03-22 12:16 | PDOC ---
PROGRESS NOTES Subjective Subjective Pt admitted with facial abscess Objective Objective Vital Signs Date Time Temp Pulse Resp B/P (MAP) Pulse Ox O2 Delivery O2 Flow Rate FiO2 03/22/17 10:30 98.1 85 18 90/61 (71) 97 Room Air 98.1 03/22/17 08:00 2.0 Intake and Output 03/23/17 07:00 Intake Total 360 ml Balance 360 ml Intake Oral 360 ml # Voids 1 Assessment Assessment Problems Medical Problems: (1) Facial cellulitis Status: Acute (2) Failure of outpatient treatment Status: Acute (3) Nausea and vomiting Status: Acute Plan Plan of Care Recommend OMFS consult given location of abscess Comment Review of Relevant I have reviewed the following items lulu (where applicable) has been applied. Labs Laboratory Tests Test 03/21/17 23:00 White Blood Count 10.5 x10^3/uL (4.0-11.0) Red Blood Count 4.21 x10^6/uL (3.50-5.40) Hemoglobin 13.5 g/dL (12.0-15.5) Hematocrit 39.9 % (36.0-47.0) Mean Corpuscular Volume 95 fL (79-100) Mean Corpuscular Hemoglobin 32 pg (25-35) Mean Corpuscular Hemoglobin Concent 34 g/dL (31-37) Red Cell Distribution Width 12.8 % (11.5-14.5) Platelet Count 303 x10^3/uL (140-400) Neutrophils (%) (Auto) 87 % (31-73) Lymphocytes (%) (Auto) 7 % (24-48) Monocytes (%) (Auto) 5 % (0-9) Eosinophils (%) (Auto) 0 % (0-3) Basophils (%) (Auto) 0 % (0-3) Neutrophils # (Auto) 9.1 x10^3uL (1.8-7.7) Lymphocytes # (Auto) 0.8 x10^3/uL (1.0-4.8) Monocytes # (Auto) 0.5 x10^3/uL (0.0-1.1) Eosinophils # (Auto) 0.0 x10^3/uL (0.0-0.7) Basophils # (Auto) 0.0 x10^3/uL (0.0-0.2) Segmented Neutrophils % 81 % (35-66) Band Neutrophils % 4 % (0-9) Lymphocytes % 10 % (24-48) Monocytes % 5 % (0-10) Toxic Vacuolation Slight Platelet Estimate Adequate (ADEQUATE) Lactic Acid Level 1.1 mmol/L (0.4-2.0) Laboratory Tests Test 03/21/17 23:00 White Blood Count 10.5 x10^3/uL (4.0-11.0) Red Blood Count 4.21 x10^6/uL (3.50-5.40) Hemoglobin 13.5 g/dL (12.0-15.5) Hematocrit 39.9 % (36.0-47.0) Mean Corpuscular Volume 95 fL (79-100) Mean Corpuscular Hemoglobin 32 pg (25-35) Mean Corpuscular Hemoglobin Concent 34 g/dL (31-37) Red Cell Distribution Width 12.8 % (11.5-14.5) Platelet Count 303 x10^3/uL (140-400) Neutrophils (%) (Auto) 87 % (31-73) Lymphocytes (%) (Auto) 7 % (24-48) Monocytes (%) (Auto) 5 % (0-9) Eosinophils (%) (Auto) 0 % (0-3) Basophils (%) (Auto) 0 % (0-3) Neutrophils # (Auto) 9.1 x10^3uL (1.8-7.7) Lymphocytes # (Auto) 0.8 x10^3/uL (1.0-4.8) Monocytes # (Auto) 0.5 x10^3/uL (0.0-1.1) Eosinophils # (Auto) 0.0 x10^3/uL (0.0-0.7) Basophils # (Auto) 0.0 x10^3/uL (0.0-0.2) Segmented Neutrophils % 81 % (35-66) Band Neutrophils % 4 % (0-9) Lymphocytes % 10 % (24-48) Monocytes % 5 % (0-10) Toxic Vacuolation Slight Platelet Estimate Adequate (ADEQUATE) Lactic Acid Level 1.1 mmol/L (0.4-2.0) Medications Current Medications Sodium Chloride 1,000 ml @ 1,000 mls/hr Q1H IV Last administered on 03/22/17t 00:02; Start 9/3/17 at 23:30; Stop 03/22/17 at 00:29; Status DC Ondansetron HCl (Zofran) 4 mg 1X ONCE IV Last administered on 03/22/17 00:05; Start 03/21/17 at 23:30; Stop 03/21/17 at 23:31; Status DC Fentanyl Citrate (Fentanyl 2ml Vial) 50 mcg 1X ONCE IV ; Start 03/21/17 at 23:30 ; Stop 03/21/17 at 23:31; Status DC Clindamycin Phosphate 50 ml @ 100 mls/hr Q8HRS IV Last administered on 05:04; Start 03/22/17 at 00:00 Morphine Sulfate 2 mg PRN Q2HR PRN IV SEVERE PAIN; Start 03/21/17 at 23:45; Stop 03/22/17 at 23:44 Clindamycin Phosphate 50 ml @ 100 mls/hr Q8HRS IV ; Start 03/22/17 at 06:00; Status UNV Potassium Chloride/Dextrose/ Sod Cl 1,000 ml @ 125 mls/hr 1X ONCE IV Last administered on 03/22/17 01:52; Start 03/22/17 at 00:00; Stop 03/22/17 at 07:59; Status DC Acetaminophen (Tylenol) 500 mg PRN Q6HRS PRN PO MILD PAIN / TEMP Last administered on 03/22/17 08:32; Start 03/22/17 at 08:15 Ondansetron HCl (Zofran) 4 mg PRN Q6HRS PRN IV NAUSEA/VOMITING Last administered on 03/22/17 12:10; Start 03/22/17 at 08:15 Active Scripts Active Reported Multi Vitamin Daily (Multivitamin) 1 Each Tablet 1 Each PO DAILY Mbyzemmgcf-Sjjkonxfefj-Xal Tab (Gluc/Willy-Msm#2/C/D3/Gerry/Born) 1 Each Tablet 1 Each PO BID Vitals/I & O Vital Sign - Last 24 Hours 03/21/17 03/21/17 03/22/17 03/22/17 23:20 23:58 00:28 01:00 Temp 98.0 97.9 98.0 97.9 Pulse 90 86 70 72 Resp 18 18 B/P (MAP) 121/78 (92) 110/71 (84) 103/66 (78) 106/62 (77) Pulse Ox 99 97 99 99 O2 Delivery Room Air Room Air Nasal Cannula O2 Flow Rate 2.0 03/22/17 03/22/17 03/22/17 03/22/17 01:36 01:48 03:00 07:15 Temp 98.1 98.4 98.1 98.4 Pulse 80 78 Resp 16 18 B/P (MAP) 100/61 (74) 95/62 (73) Pulse Ox 98 98 O2 Delivery Nasal Cannula Nasal Cannula Nasal Cannula O2 Flow Rate 2.0 2.0 1.0 03/22/17 03/22/17 08:00 10:30 Temp 98.1 98.1 Pulse 85 Resp 18 B/P (MAP) 90/61 (71) Pulse Ox 97 O2 Delivery Nasal Cannula Room Air O2 Flow Rate 2.0 Intake and Output 03/22/17 03/22/17 03/23/17 15:00 23:00 07:00 Intake Total 360 ml Balance 360 ml AMARILYS LAZO MD Mar 22, 2017 12:15
[2017-03-22] MEDS: FLUTICASONE 50MCG/NASAL SPRAY 16GM BOTTLE. NS SCH (13:00)
--- NOTE | 2017-03-23 00:08 | ACF ---
Admission Forms Criteria GENERAL ADMISSION CRITERIA (Place 'X' for any and all applicable criteria): Admission is indicated for ANY ONE of the following: [ ]I. Hemodynamic instability as indicated by ANY ONE of the following(1)(2) (3)(4)(5): [ ]a) Vital sign abnormality not readily corrected by appropriate treatment within 12 to 24 hours indicated by ANY ONE of the following: [ ]i) Hypotension [ ]ii) Symptomatic Tachycardia unresponsive to treatment (eg , analgesia, fluids, sedation as indicated) [ ]iii) Orthostatic vital sign changes unresponsive to treatment (eg, fluids) [ ]b) Vital sign abnormality that is severe indicated by ANY ONE of the following: [ ]i) Inadequate perfusion indicated by ANY ONE of the following: [ ]1) Lactic acidosis (greater than 2 mmol/L) [ ]2) New abnormal capillary refill (greater than 3 seconds) [ ]3) Other metabolic acidosis (arterial pH less than 7.35) not otherwise explained [ ]4) Reduced urine output [ ]5) Altered mental status [ ]6) Myocardial Ischemia [ ]v) Mean arterial pressure[A] less than 60 mm Hg [ ]vi) Mean arterial pressure[A] less than 70 mm Hg after 30 minutes of appropriate treatment (eg, fluid resuscitation) [ ]vii) IV inotropic or vasopressor medication required to maintain adequate blood pressure or perfusion [ ]viii) Sustained heart rate greater than 120 beats per minute in adult or child 6 years or older[B]] [ ]II. Hypertension requiring inpatient treatment as indicated by ANY ONE of the following(6)(7)(8): [ ]a) SBP greater than 220 mm Hg or DBP greater than 120 mm Hg despite treatment [ ]b) SBP greater than 140 mm Hg or DBP greater than 100 mm Hg with evidence of acute end organ damage as indicated by ANY ONE of the following: [ ]i) Encephalopathy [ ]ii) Acute renal failure as indicated by new onset of ANY ONE of the following(9)(10)(11)(12)(13): [ ]1) A 3-fold rise in serum creatinine from baseline [ ]2) Serum creatinine greater than 4 mg/dL ( 354 micromoles/L) with acute rise greater than 0.5 mg/dL (44.2 micromoles/L) [ ]3) Reduction of more than 75% in estimated glomerular filtration rate from baseline [ ]4) Estimated glomerular filtration rate less than 35 mL/min/1.73m2 (0.59 mL/sec/1.73m2) in child up to 18 years of age [ ]5) Cessation of urine output indicated by ALL of the following: [ ]A. Adequate volume status [ ]B. Inadequate urine output as indicated by ANY ONE of the following: [ ]a. Urine output less than 0.3 mL/kg/hr for 24 hours [ ]b. Anuria (urine output less than 0.1 mL/kg/hr) for 12 hours [ ]iii) Aortic dissection [ ]iv) Myocardial ischemia [ ]v) Left ventricular heart failure [ ]vi) Retinal hemorrhage [ ]vii) Other significant finding [ ]c) Hypertension in child requiring inpatient treatment as indicated by ALL of the following(14)(15)(16): [ ]i) Outpatient treatment not effective, not available, or not appropriate [ ]ii) SBP or DBP greater than 95th percentile for age [ ]iii) Evidence of acute end organ damage as indicated by ANY ONE of the following: [ ]1) Altered mental status [ ]2) Acute renal failure as indicated by new onset of ANY ONE of the following(9)(10)(11)(12)(13): [ ]A. A 3-fold rise in serum creatinine from baseline [ ]B. Serum creatinine greater than 4 mg/dL (354 micromoles/L) with acute rise greater than 0.5 mg/dL (44.2 micromoles/L) [ ]C. Reduction of more than 75% in estimated glomerular filtration rate from baseline [ ]D. Estimated glomerular filtration rate less than 35 mL/min/1.73m2 (0.59 mL/sec/1.73m2)in child up to 18 years of age [ ]E. Cessation of urine output indicated by ALL of the following: [ ]a. Adequate volume status [ ]b. Inadequate urine output as indicated by ANY ONE of the following: [ ]1) Urine output less than 0.3 mL/kg/hr for 24 hours [ ]2) Anuria (urine output less than 0.1 mL/kg/hr) for 12 hours [ ]3) Severe headache [ ]4) Visual disturbance [ ]5) Retinal hemorrhage [ ]6) Other significant finding [ ]III. Acute cardiac or peripheral ischemia as indicated by ANY ONE of the following: [ ]a) Acute coronary syndrome(17)(18) [ ]b) Acute peripheral ischemia (eg, pulseless, cool, mottled, or cyanotic extremity)(19) [ ]IV. Cardiac arrhythmias or findings of immediate concern indicated by ANY ONE of the following(20)(21): [ ]a) Heart rhythms that are inherently dangerous or unstable indicated by ANY ONE of the following(22)(23)(24): [ ]i) Resuscitated ventricular fibrillation or cardiac arrest [ ]ii) Ventricular escape rhythm [ ]iii) Sustained ventricular tachycardia (30 seconds or more of ventricular rhythm at greater than 100 beats per minute) [ ]iv) Nonsustained ventricular tachycardia and ANY ONE of the following: [ ]1) Suspected cardiac ischemia as cause or consequence of ventricular tachycardia [ ]2) In setting of acute myocarditis [ ]b) Unstable cardiac conduction defects indicated by ANY ONE of the following(24)(25)(26): [ ]i) Type II second-degree atrioventricular block [ ]ii) Third-degree atrioventricular block [ ]iii) New-onset left bundle branch block with suspected myocardial ischemia [ ]c) Any heart rhythm and ANY ONE of the following(22)(23)(27)(28)( 29): [ ] i) Continuous long-term ECG monitoring needed (eg, initiation of drug requiring monitoring for more than 24 hours) [ ] ii) Patient has automatic implanted cardioverter defibrillator that is repeatedly firing, malfunctioning, or in need of immediate adjustment of settings beyond the scope of ambulatory or observation care. [ ]d) Heart rhythms of concern due to ANY ONE of the following: [ ]i) Hypotension [ ]ii) Respiratory distress [ ]iii) Association with other significant symptoms (eg, bradycardia with syncope or ongoing dizziness, supraventricular tachycardia with chest pain) (27)(28) (30) [ ] V. Severe heart failure as indicated by ANY ONE of the following ( 31)(32): [ ]a) Respiratory distress [ ]b) Hypotension [ ]c) Anasarca (refractory to outpatient therapy) [ ]d) Cardiac arrhythmias of immediate concern [ ]e) Myocardial ischemia [ ]. Respiratory abnormalities, including ANY ONE of the following(33)(34) (35)(36): [ ]a) Respiratory rate greater than 30 breaths per minute unresponsive to treatment [A] [ ]b) New saturation of arterial oxygen less than 90% [ ]c) New partial pressure of carbon dioxide greater than 44 mm Hg ( 5.9 kPa) [ ]d) Supplemental oxygen or respiratory treatments needed that are new or not performable at other levels of care [ ]e) New-onset cyanosis [ ]f) Inability to protect airway [ ]g) Chronic lung disease with severe deterioration (not responsive to emergency and observation care treatment as appropriate) as indicated by ANY ONE of the following(34)(36 ): [ ]i) SaO2 5% below baseline in patient with chronic hypoxemia [ ]ii) New requirement for supplemental oxygen to keep SaO2 at baseline or acceptable level [ ]iii) Required supplemental oxygen performable only in acute inpatient setting [ ]iv) Severe airflow or ventilation abnormalities [ ]v) Previously mobile patient unable to walk between rooms [ ]vi Inability to eat or sleep due to dyspnea [ ]vii) Rapid rate of exacerbation onset [ ]viii) Altered mental status ]VII. Severe airflow or ventilation abnormalities (not responsive to emergency and observation care treatment as appropriate) as indicated by ANY ONE of the following(33)(34)(35)(37): [ ]a) PCO2 greater than 42 mm Hg (5.6 kPa) and pH less than 7.35 (new ) [ ]b) Documented PCO2 increased more than 5 mm Hg (0.7 kPa) from disease baseline [ ]c) Airflow measurements [B] less than 60% of previous best or predicted (eg, peak expiratory flow rate less than 300 L/minute) despite intensive emergent treatment [C] [ ]d) Required respiratory treatments that are performable only in acute inpatient setting [ ]VIII. Impending or actual respiratory arrest ( Also use Respiratory Failure GRG for severe respiratory disease and long-term mechanical ventilation patients) [ ]IX. Neurologic abnormalities, including ANY ONE of the following: [ ]a) New findings that suggest ANY ONE of the following: [ ]i) [employer] infection(38) [ ]ii) Cerebral bleeding, ischemia, or vasospasm(39)(40) [ ]iii) Increased intracranial pressure, hydrocephalus, or cerebral edema(41)(42)(43) [ ]iv) Spinal cord injury(44) [ ]b) Uncontrolled seizures(45) [ ]c) New-onset coma (eg, Roldan coma scale score less than 9) or unexplained abnormal mental status (eg, Roldan coma scale score less than 14) [D](41)(46)(47) [ ]X. New-onset severe neurologic findings requiring inpatient care; examples include(42)(48)(49): [ ]a) Papilledema [ ]b) Cerebral edema [ ]c) Mass effect on CT scan [ ]XI. Suspected acute intra-abdominal process with peritoneal signs, abdominal mass, or similar findings (50)(51)(52) [ ]XII. Severe physiologic disorder remaining after emergency or observation level care (as appropriate) as indicated by ANY ONE of the following (53): [ ]a) Significant dehydration [ ]b) Diabetic ketoacidosis [ ]c) Hyperglycemic hyperosmolar state (eg, osmolality greater than 320 mOsm/kg (mmol/kg) [ ]d) Hypoglycemia [ ]e) Other (new) acid-base disorder with pH less than 7.35 or greater than 7.5(54) [ ]f) Thyroid storm (55) [ ]g) Myxedema coma (55) [ ]XIII. Abdominal abnormalities with ANY ONE of the following(56)(57): [ ]a) Absent bowel sounds with complete ileus [ ]b) Signs of intestinal obstruction or peritonitis [E] [ ]c) Nausea and vomiting that cannot be controlled with outpatient or observation care [ ]XIV. Acute renal failure as indicated by new onset of ANY ONE of the following(9)(10)(11)(12)(13): [ ]a) A 3-fold rise in serum creatinine from baseline [ ]b) Serum creatinine greater than 4 mg/dL (354 micromoles/L) with acute rise greater than 0.5 mg/dL (44.2 micromoles/L) [ ]c) Reduction of more than 75% in estimated glomerular filtration rate from baseline [ ]d) Estimated glomerular filtration rate less than 35 mL/min/ 1.73m2 (0.59 mL/sec/1.73m2) in child up to 18 years of age [ ]e) Cessation of urine output indicated by ALL of the following: [ ]i) Adequate volume status [ ]ii) Inadequate urine output as indicated by ANY ONE of the following: [ ]1) Urine output less than 0.3 mL/kg/hr for 24 hours [ ]2) Anuria (urine output less than 0.1 mL/kg/hr) for 12 hours [ ]XV. Significant uremic complications as indicated by ANY ONE of the following(58)(59)(60): [ ]a) Outpatient therapy is ineffective or not feasible for ANY ONE of the following: [ ]i) Severe heart failure [ ]ii) Severehypertension [ ]iii) Pleural effusion [ ]iv) Pericarditis or pericardial effusion [ ]b) Cardiac arrhythmias of immediate concern [ ]c) Intractable nausea or vomiting [ ]d) Recurrent seizures [ ]e) Encephalopathy [ ]f) Bleeding abnormalities (eg, platelet dysfunction) with active (eg, gastrointestinal) bleeding [ ]g) Dialysis indicated before long-term access or ambulatory arrangements can be made [ ]h) Significant metabolic or electrolyte abnormalities (eg, severe acidosis or hyperkalemia) [ ]XVI. High fever or other high-risk infection situation as indicated by ANY ONE of the following(61)(62)(63)(64): [ ]a) Outpatient and observation care antimicrobial treatment unavailable, not effective, or not appropriate [ ]b) Documented bacteremia [ ]c) Temperature greater than 40.5 degrees C (104.9 degrees F) ( oral) [ ]d) Temperature greater than 39.5 degrees C (103.1 degrees F) ( oral) or less than 36 degrees C (96.8 degrees F) (rectal) that does not respond to e treatment and observation care [ ] XVII. Temperature less than 95 degrees F (35 degrees C)(rectal)(65) [ ] XVIII. Severe nutritional abnormalities as indicated by ALL of the following (66)(67): [ ]a) Inability to tolerate or establish sufficient oral or other enteral nutrition in outpatient setting [ ]b) Parenteral nutrition regimen need that must be implemented on inpatient basis [ ] XIX. Severe electrolyte abnormalities indicated by ALL of the following(68) (69)(70): [ ]a) Electrolytes and associated findings are not as expected for patient baseline or acceptable treatment effects. [ ]b) Severe abnormalities indicated by ANY ONE of the following: [ ]i) Sodium less than 130 mEq/L (mmol/L) (new) [ ]ii)Sodium less than 135 mEq/L (mmol/L) with ANY ONE of the following: [ ]1) Uncorrectable (to near normal or chronic baseline) after trial of outpatient and emergency treatment [ ]2) Altered mental status [ ]3) Seizures [ ]4) Severe medical etiology requiring inpatient management (eg, heart failure, hypovolemia) [ ]iii) Sodium greater than 155 mEq/L (mmol/L) [ ]iv) Sodium greater than 150 mEq/L (mmol/L) with ANY ONE of the following: [ ]1) Uncorrectable (to near normal or chronic baseline) with outpatient and emergency treatment [ ]2) Altered mental status [ ]3) Seizures [ ]4) Severe medical etiology (eg, hypovolemia, diabetes insipidus) [ ]v) Potassium less than 2.5 mEq/L (mmol/L) despite outpatient and emergency treatment [ ]vi) Potassium less than 3 mEq/L (mmol/L) with ANY ONE of the following: [ ]1) Weakness [ ]2) Cardiac abnormality (eg, arrhythmia, conduction disturbance) [ ]3) Cardiac ischemia [ ]4) Ileus [ ]5) Ongoing medical cause requiring inpatient management (eg, acute renal wasting or SIADH) [ ]6) Other severe symptoms [ ]vii) Potassium greater than 6.5 mEq/L (mmol/L) [ ]viii) Potassium greater than 5 mEq/L (mmol/L) with ANY ONE of the following: [ ]1) Uncorrectable (to near normal or chronic baseline) with outpatient and emergency treatment [ ]2) Severe ECG findings [F] [ ]3) Acute worsening of renal failure (creatinine greater than 2.5 mg/dL (221 micromoles/L) or significant elevation for age and size) [ ]4) Severe weakness [ ]5) Severe medical etiology (eg, hemolysis, infection, drug overdose) [ ]ix) Calcium less than 7 mg/dL (1.75 mmol/L) despite outpatient and emergency treatment (72) [ ]x) Calcium less than 8 mg/dL (2 mmol/L) with significant symptoms or findings; examples include(72): [ ]1) Altered mental status [ ]2) Muscle spasms [ ]3) Seizures [ ]4) Breathing difficulty [ ]5) Cardiac abnormality (eg, arrhythmia or conduction disturbance) [ ]xi) Calcium greater than 14 mg/dL (3.5 mmol/L)(72) [ ]xii) Calcium greater than 12 mg/dL (3 mmol/L) with ANY ONE of the following(72): [ ]1) Uncorrectable (to near normal or chronic baseline) with outpatient and emergency treatment [ ]2) Significant dehydration or hypovolemia as indicated by ALL of the following(70)(73)(74): [ ]A. Not resolved with initial treatments [ ]B. Clinically significant dehydration as indicated by ANY ONE of the following: [ ]a. Vomiting refractory to outpatient treatment (ie, precluding oral rehydration) [ ]b. Inability to drink [ ]c. Hypernatremia or other electrolyte abnormality unable to be corrected with outpatient and emergency treatment [ ]d. Failure to remain hydrated with outpatient therapy [ ]e. Reduced urine output [ ]f. Hypotension [ ]g. Serious cause for dehydration requiring acute hospitalization (eg, bowel obstruction, increased intracranial pressure, infectious cause) [ ]h. Child with ANY ONE of the following(75): [ ]1) Severe abdominal tenderness [ ]2) Adequate care not available at home [ ]3) Severe dehydration ( greater than 9% loss of body weight) [ ]4) Significant symptoms or findings; examples include: [ ]A. Altered mental status [ ]B. Cardiac abnormality (eg, arrhythmia, conduction disturbance) [ ]C. Malignant etiology requiring inpatient treatment [ ]xiii) Phosphorus less than 1 mg/dL (0.32 mmol/L) [ ]xiv) Phosphorus less than 1.5 mg/dL (0.48 mmol/L) with ANY ONE of the following: [ ]1) Patient unresponsive to outpatient and emergency treatment [ ]2) Significant symptoms or findings; examples include: [ ]A. Weakness [ ]B. Altered mental status [ ]C. Breathing difficulty [ ]D. Seizures [ ]E. Rhabdomyolysis [ ]xv) Phosphorus greater than 10 mg/dL (3.2 mmol/L) [ ]xvi) Phosphorus greater than 4.5 mg/dL (1.45 mmol/L) (new) with ANY ONE of the following: [ ]1) Severe medical etiology (eg, crush injury, acute renal failure) [ ]2) Associated hypocalcemia with significant findings; examples include: [ ]A. Neurologic symptoms [ ]B. Altered mental status [ ]C. Muscle spasms [ ]D. Seizures [ ]E. Breathing difficulty [ ]F. Cardiac abnormality (eg, arrhythmia, conduction disturbance) [ ]xvii) Magnesium less than 1 mg/dL (0.41 mmol/L) [ ]xviii) Magnesium less than 1.5 mg/dL (0.62 mmol/L) with ANY ONE of the following: [ ]1) Patient unresponsive to outpatient and emergency treatment [ ]2) Associated hypocalcemia with significant findings; examples include: [ ]A. Altered mental status [ ]B. Muscle spasms [ ]C. Seizures [ ]D. Breathing difficulty [ ]E. Cardiac abnormality (eg, arrhythmia , conduction disturbance) [ ]3) Associated hypokalemia (potassium less than 3 mEq/L (mmol/L)) with risk of arrhythmia [ ]xix) Magnesium greater than 4 mEq/L (2 mmol/L) [ ]xx) Magnesium greater than 2.5 mEq/L (1.25 mmol/L) with significant symptoms or findings; examples include: [ ]1) Weakness [ ]2) Altered mental status [ ]3) Cardiac abnormality (eg, arrhythmia, conduction disturbance) [ ]4) Breathing difficulty [ ]5) Severe medical etiology (eg, renal failure, hypovolemia) [ ]xxi) Uric acid greater than 20 mg/dL (1190 micromoles/L)(76) [ ]xxii) Uric acid greater than 8 mg/dL (476 micromoles/L) with significant symptoms or findings of tumor lysis syndrome; examples include(76): [ ]1) Creatinine greater than 1.5 times upper limit of normal [ ]2) Cardiac abnormality (eg, arrhythmia, conduction disturbance) [ ]3) Seizure [ ]XX. Acute blood loss causing significant abnormality as indicated by ANY ONE of the following(77)(78): [ ]a) Hemoglobin less than 10 g/dL (100 g/L) (not baseline) [ ]b) Hematocrit less than 30% (0.30) (not baseline) [ ]c) Repeat hematocrit decreased more than 2% (0.02) [ ]d) Uncontrolled bleeding [ ]XXI. Severe anemia indicated by ANY ONE of the following(78)(79): [ ]a) Altered mental status [ ]b) Chest pain [ ]c) Exertional dyspnea [ ]d) Syncope [ ]e) Other findings suggesting inadequate perfusion [ ]f) Treatment with transfusion or volume replacement is ineffective at resolving ANY ONE of the following [G]: [ ]i) Tachycardia for age [ ]ii) Orthostatic vital sign changes as indicated by ANY ONE of the following(80): [ ]1) Fall in SBP of 20 mm Hg or more 1 to 3 minutes after patient sits or stands from recumbent position [ ]2) Fall in DBP of 10 mm Hg or more 1 to 3 minutes after patient sits or stands from recumbent position [ ]XXII. High-risk low platelet count as indicated by ANY ONE of the following( 81)(82): [ ]a) Severe or life-threatening bleeding (eg, intracranial, major gastrointestinal, or extensive mucosal bleeding), with any reduced platelet count [ ]b) Platelet count less than 20,000/mm3 (20 x109/L) with any active bleeding [ ]c) Platelet count less than 10,000/mm3 (10 x109/L) with minor purpura or petechiae [ ]d) Platelet count less than 5000/mm3 (5 x109/L) [ ]e) Low platelet count with hemolytic anemia [ ]XXIII. Disseminated intravascular coagulation(77)(83) [ ]XXIV. Severe adverse drug or systemic toxin reaction requiring inpatient treatment; examples include(84)(85): [ ]a) Serotonin syndrome(86) [ ]b) Neuroleptic malignant syndrome(86) [ ]c) Cholinergic syndrome with severe symptoms (eg, bronchorrhea, weakness, mental status changes, seizures) [ ]d) Sympathetic syndrome with severe symptoms (eg, seizures, mental status changes, cardiac dysrhythmias) [ ]e) Anticholinergic syndrome [ ]XXV. Severe pain requiring acute inpatient management as indicated by ALL of the following (87)(88)(89): [ ]a) Continuous or frequent (eg, every 2 to 4 hours) parenteral analgesics required [H] [ ]b) Rapid improvement expected from treatment or acute intervention (eg, surgery, anesthesia procedure) [ ]XXVI.Severe behavioral health issues judged unmanageable at a lower level of care (eg, residential) in a patient who is ANY ONE of the following(91) [ ]a) Acutely suicidal [ ]b) A danger to self (eg, self-mutilating or suicidal behavior) [ ]c) A danger to others (eg, assaultive or homicidal behavior) [ ]d) Incapacitated because of grave disability (eg, inability to provide for self at lower level of care) (92) [X]XXVII. Inpatient monitoring needed; examples include(1)(3)(87)(93)(94)(95)(96 ): [X]a) Vital signs, neurologic signs, or vascular checks more frequently than every 4 hours [ ]b) Cardiac or respiratory monitoring beyond the scope (eg, over 24 hours) of observation care [ ]c) Pulmonary artery catheter monitoring [ ]d) Suspected compartment syndrome(97) (98) [ ]e) Cerebral bleeding, hydrocephalus, or vasospasm monitoring [ ]f) Increased intracranial pressure or cerebral edema monitoring [ ]g) monitoring [ ]XXVIII. Treatment requiring inpatient care; examples include: [ ]a) IV fluid to replace significant ongoing losses (greater than 3 L/m2 per day)(53) [ ]b) High concentration oxygen (greater than 40%)(33)(99)(100) [ ]c) Frequent respiratory therapy (more frequently than every 4 hours) to maintain airflow rates greater than 60% of baseline(33)(99)(100) [ ]d) Epidural analgesia(87) [ ]e) IV anticoagulation, vasoactive, or antiarrhythmic medication(19 )(23) [ ]f) Acute thrombolytics (generally require 24 hours of observation )(101)(102) [ ]XXIX. Emergency procedures needed; examples include: [ ]a) Emergency inpatient surgery [ ]b) Temporary pacemaker placement(103) [ ]c) Chest tube placement with active evacuation (eg, suction, drainage)(104) [ ]d) Emergent cardioversion(105) [ ]e) Emergent cardiac or vascular procedures (eg, cardiac catheterization, angioplasty) (17)(18) [ ]f) Emergent dialysis access placement and institution(10)(106) [ ]g) Emergent pericardiocentesis(107) [ ]h) Emergent plasmapheresis or leukapheresis(83) [ ]i) Emergent tracheostomy The original [employer] content created by [employer] has been revised. The portions of the content which have been revised are identified through the use of italic text or in bold, and [facility] [employer] has neither reviewed nor approved the modified material. All other unmodified content is copyright [employer]. Please see references footnoted in the original [facility] edition 2016 Admission Criteria Met?: Yes OSMANY DE LA TORRE Mar 23, 2017 00:08
[2017-03-23] MEDS: CLINDAMYCIN 900MG PREMIX 50 ML IV SCH ×3 (06:19→21:28)
[2017-03-23 07:00] VITALS: BP 91/67
--- NOTE | 2017-03-23 08:20 | PDOC ---
PROGRESS NOTES Subjective Subjective Patient reports some drainage from her lesion. Less pain. No nausea. Objective Objective Vital Signs Date Time Temp Pulse Resp B/P (MAP) Pulse Ox O2 Delivery O2 Flow Rate FiO2 03/22/17 23:00 97.3 75 18 94/55 (68) 96 Room Air 97.3 03/22/17 08:00 2.0 Physical Exam Abdomen: Normal bowel sounds, Soft, No tenderness Heart: Regular rate Extremities: No edema General: Alert, Oriented X3, No acute distress Lungs: Clear to auscultation Skin: Other (2 cm draining pustule with underlying induration, no TTP) Assessment Assessment Problems Medical Problems: (1) Facial cellulitis Status: Acute (2) Failure of outpatient treatment Status: Acute (3) Nausea and vomiting Status: Acute Plan Plan of Care 1. Cellulitis with abscess - improving with spontaneous drainage overnight. Continue Clindamycin. Culture of fluid would probably not be helpful now as she has received several days of abx. 2. N/V - resolved, patient tolerating regular diet now without difficulty. Comment Review of Relevant I have reviewed the following items lulu (where applicable) has been applied. Labs Laboratory Tests Test 03/21/17 23:00 03/22/17 01:19 White Blood Count 10.5 x10^3/uL (4.0-11.0) Red Blood Count 4.21 x10^6/uL (3.50-5.40) Hemoglobin 13.5 g/dL (12.0-15.5) Hematocrit 39.9 % (36.0-47.0) Mean Corpuscular Volume 95 fL (79-100) Mean Corpuscular Hemoglobin 32 pg (25-35) Mean Corpuscular Hemoglobin Concent 34 g/dL (31-37) Red Cell Distribution Width 12.8 % (11.5-14.5) Platelet Count 303 x10^3/uL (140-400) Neutrophils (%) (Auto) 87 % (31-73) Lymphocytes (%) (Auto) 7 % (24-48) Monocytes (%) (Auto) 5 % (0-9) Eosinophils (%) (Auto) 0 % (0-3) Basophils (%) (Auto) 0 % (0-3) Neutrophils # (Auto) 9.1 x10^3uL (1.8-7.7) Lymphocytes # (Auto) 0.8 x10^3/uL (1.0-4.8) Monocytes # (Auto) 0.5 x10^3/uL (0.0-1.1) Eosinophils # (Auto) 0.0 x10^3/uL (0.0-0.7) Basophils # (Auto) 0.0 x10^3/uL (0.0-0.2) Segmented Neutrophils % 81 % (35-66) Band Neutrophils % 4 % (0-9) Lymphocytes % 10 % (24-48) Monocytes % 5 % (0-10) Toxic Vacuolation Slight Platelet Estimate Adequate (ADEQUATE) Lactic Acid Level 1.1 mmol/L (0.4-2.0) Nasal Screen MRSA (PCR) Negative (Negative) Microbiology 03/21/17 Blood Culture - Preliminary, Resulted NO GROWTH AFTER 1 DAY Medications Current Medications Sodium Chloride 1,000 ml @ 1,000 mls/hr Q1H IV Last administered on 03/22/17 00:02; Start 03/21/17 at 23:30; Stop 03/22/17 at 00:29; Status DC Ondansetron HCl (Zofran) 4 mg 1X ONCE IV Last administered on 03/22/17 00:05; Start 03/21/17 at 23:30; Stop 03/21/17 at 23:31; Status DC Fentanyl Citrate (Fentanyl 2ml Vial) 50 mcg 1X ONCE IV ; Start 03/21/17 at 23:30 ; Stop 03/21/17 at 23:31; Status DC Clindamycin Phosphate 50 ml @ 100 mls/hr Q8HRS IV Last administered on 06:19; Start 03/22/17 at 00:00 Morphine Sulfate 2 mg PRN Q2HR PRN IV SEVERE PAIN; Start 03/21/17 at 23:45; Stop 03/22/17 at 23:44; Status DC Clindamycin Phosphate 50 ml @ 100 mls/hr Q8HRS IV ; Start 03/22/17 at 06:00; Status UNV Potassium Chloride/Dextrose/ Sod Cl 1,000 ml @ 125 mls/hr 1X ONCE IV Last administered on 03/22/17 01:52; Start 03/22/17 at 00:00; Stop 03/22/17 at 07:59; Status DC Acetaminophen (Tylenol) 500 mg PRN Q6HRS PRN PO MILD PAIN / TEMP Last administered on 03/22/17 14:03; Start 03/22/17 at 08:15 Ondansetron HCl (Zofran) 4 mg PRN Q6HRS PRN IV NAUSEA/VOMITING Last administered on 03/22/17 12:10; Start 03/22/17 at 08:15 Fluticasone Propionate (Flonase) 2 spray DAILY NS Last administered on 13:00; Start 03/22/17 at 13:00 Active Scripts Active Reported Multi Vitamin Daily (Multivitamin) 1 Each Tablet 1 Each PO DAILY Nzrqwdtwxu-Ffjulvvypnp-Tao Tab (Gluc/Willy-Msm#2/C/D3/Gerry/Born) 1 Each Tablet 1 Each PO BID Vitals/I & O Vital Sign - Last 24 Hours 03/22/17 03/22/17 03/22/17 03/22/17 10:30 14:30 19:00 23:00 Temp 98.1 97.9 98.6 97.3 98.1 97.9 98.6 97.3 Pulse 85 92 77 75 Resp 18 18 18 18 B/P (MAP) 90/61 (71) 88/53 (65) 92/57 (69) 94/55 (68) Pulse Ox 97 96 95 96 O2 Delivery Room Air Room Air Room Air Room Air MARILEE AQUINO MD Mar 23, 2017 08:20
[2017-03-23] MEDS ORDERED: ACETAMINOPHEN 500 MG TABLET PO PRN (08:30)
[2017-03-23] MEDS: FLUTICASONE 50MCG/NASAL SPRAY 16GM BOTTLE. NS SCH (08:39)
[2017-03-23 11:00] VITALS: BP 92/63
[2017-03-23 15:00] VITALS: BP 90/59
[2017-03-23 19:00] VITALS: BP 91/51
[2017-03-23 23:00] VITALS: BP 93/59
[2017-03-24] MEDS: CLINDAMYCIN 900MG PREMIX 50 ML IV SCH (05:54)
[2017-03-24 07:00] VITALS: BP 99/67
--- NOTE | 2017-03-24 08:58 | PDOC ---
PROGRESS NOTES Subjective Subjective Patient denies pain in face, drainage has decreased. Feels ready to go home today. Objective Objective Vital Signs Date Time Temp Pulse Resp B/P (MAP) Pulse Ox O2 Delivery O2 Flow Rate FiO2 03/24/17 07:00 97.7 82 18 99/67 (78) 97 Room Air 97.7 03/22/17 08:00 2.0 Intake and Output 03/25/17 07:00 Intake Total 60 ml Balance 60 ml Intake Oral 60 ml # Voids 1 Physical Exam Abdomen: Normal bowel sounds, Soft, No tenderness Heart: Regular rate Extremities: No edema General: Alert, Oriented X3, No acute distress Lungs: Clear to auscultation Skin: Other (1 cm pustule on left cheek, scant erythema and induration) Assessment Assessment Problems Medical Problems: (1) Facial cellulitis Status: Acute (2) Failure of outpatient treatment Status: Acute (3) Nausea and vomiting Status: Acute Plan Plan of Care 1. Facial cellulitis with abscess - much improved. Home today on po Bactrim. 2. n/v - resolved. Comment Review of Relevant I have reviewed the following items lulu (where applicable) has been applied. Labs Microbiology 03/21/17 Blood Culture - Preliminary, Resulted NO GROWTH AFTER 2 DAYS Medications Current Medications Sodium Chloride 1,000 ml @ 1,000 mls/hr Q1H IV Last administered on 03/22/17 00:02; Start 03/21/17 at 23:30; Stop 03/22/17 at 00:29; Status DC Ondansetron HCl (Zofran) 4 mg 1X ONCE IV Last administered on 03/22/17 00:05; Start 03/21/17 at 23:30; Stop 03/21/17 at 23:31; Status DC Fentanyl Citrate (Fentanyl 2ml Vial) 50 mcg 1X ONCE IV ; Start 03/21/17 at 23:30 ; Stop 03/21/17 at 23:31; Status DC Clindamycin Phosphate 50 ml @ 100 mls/hr Q8HRS IV Last administered on 05:54; Start 03/22/17 at 00:00 Morphine Sulfate 2 mg PRN Q2HR PRN IV SEVERE PAIN; Start 03/21/17 at 23:45; Stop 03/22/17 at 23:44; Status DC Clindamycin Phosphate 50 ml @ 100 mls/hr Q8HRS IV ; Start 03/22/17 at 06:00; Status UNV Potassium Chloride/Dextrose/ Sod Cl 1,000 ml @ 125 mls/hr 1X ONCE IV Last administered on 03/22/17 01:52; Start 03/22/17 at 00:00; Stop 03/22/17 at 07:59; Status DC Acetaminophen (Tylenol) 500 mg PRN Q6HRS PRN PO MILD PAIN / TEMP Last administered on 03/22/17 14:03; Start 03/22/17 at 08:15; Stop 03/23/17 at 08:21; Status DC Ondansetron HCl (Zofran) 4 mg PRN Q6HRS PRN IV NAUSEA/VOMITING Last administered on 03/22/17 12:10; Start 03/22/17 at 08:15 Fluticasone Propionate (Flonase) 2 spray DAILY NS Last administered on 08:39; Start 03/22/17 at 13:00 Acetaminophen (Tylenol) 1,000 mg PRN Q6HRS PRN PO MILD PAIN / TEMP Last administered on 03/23/17 08:39; Start 03/23/17 at 08:30 Active Scripts Active Reported Multi Vitamin Daily (Multivitamin) 1 Each Tablet 1 Each PO DAILY Rxukdvbjxt-Gljoittqqfp-Xbv Tab (Gluc/Willy-Msm#2/C/D3/Gerry/Born) 1 Each Tablet 1 Each PO BID Vitals/I & O Vital Sign - Last 24 Hours 03/23/17 03/23/17 03/23/17 03/23/17 11:00 15:00 19:00 23:00 Temp 98.2 98.6 98.0 98.2 98.2 98.6 98.0 98.2 Pulse 74 88 85 79 Resp 20 22 18 16 B/P (MAP) 92/63 (73) 90/59 (69) 91/51 (64) 93/59 (70) Pulse Ox 98 97 95 95 O2 Delivery Room Air Room Air 03/24/17 03/24/17 03/24/17 03:00 04:43 07:00 Temp 97.7 97.7 Pulse 82 Resp 18 B/P (MAP) 99/67 (78) Pulse Ox 97 O2 Delivery Room Air Intake and Output 03/24/17 03/24/17 03/25/17 15:00 23:00 07:00 Intake Total 60 ml Balance 60 ml MARILEE AQUINO MD Mar 24, 2017 08:58
[2017-03-24] MEDS ORDERED: SULF1TAB24 PO (09:00)
--- NOTE | 2017-03-24 10:17 | DS ---
DATE OF DISCHARGE: 03/24/2017 CHIEF COMPLAINT: Nausea and vomiting. HISTORY OF PRESENT ILLNESS: The patient is a 51-year-old female who was seen in our office several days before admission due to infection on her cheek. She was started on oral antibiotics. The pain and swelling in her face seemed to worsen, so she came to the Emergency Room. She was changed from Bactrim to doxycycline and discharged home. She tried taking the doxycycline, but had immediate nausea and vomiting. She was unable to keep down any dose of it and so came back to the Emergency Room. A CAT scan done on the day prior to admission showed the infection in her left cheek, no abscess was seen at that time. She was admitted for IV antibiotics and antiemetics having failed outpatient treatment. HOSPITAL COURSE: The patient was started on IV clindamycin. She was seen in consultation by Dr. Cueto who did not recommend surgical drainage of the infection. He suggested maxillofacial surgeon to evaluate her. Unfortunately, we do not have a maxillofacial surgeon who makes rounds at [facility]. Consideration was given to transferring her to a different hospital for further treatment; however, she had the development of spontaneous drainage from the lesion. With this drainage, the lesion decreased in sized and is no longer painful. The patient's nausea and vomiting was treated with 1 dose of IV Zofran, it promptly resolved and she has been tolerating a regular diet with a good appetite. She has been afebrile and her white blood cell count was normal. She has continued to have spontaneous drainage from the abscess, it is now much smaller and she feels able to go home and resume taking oral antibiotics. FINAL DIAGNOSES: 1. Facial cellulitis with abscess. 2. Nausea and vomiting. DISCHARGE MEDICATIONS: Bactrim-DS 1 p.o. b.i.d. x 5 days. The patient takes no other prescription medications. FOLLOWUP: Followup is with Dr. Aquino as needed. MARILEE AQUINO MD DR: MINOO/flavia JOB#: [id number] / [id number]
[2017-03-24 10:46] VITALS: BP 99/49
== END 2017-03-24 12:01 | disposition home or self-care (01) | DRG 603 ==
LOC: ER 22:42 → 5 SOUTH 03-22 00:07
PROVIDERS: ADMIT Family Medicine; ATTEND Family Medicine
DX: L03.211 Cellulitis of face (principal); I95.9 Hypotension, unspecified; L02.01 Cutaneous abscess of face; K21.9 Gastro-esophageal reflux disease without esophagitis; Z80.3 Family history of malignant neoplasm of breast; Z83.3 Family history of diabetes mellitus; J30.9 Allergic rhinitis, unspecified; K57.90 Diverticulosis of intestine, part unspecified, without perforation or abscess without bleeding; R91.1 Solitary pulmonary nodule
CPT/HCPCS: 36415; 83605; 85007; 85025; 87040; 87641; 96361; 96374; J2405; J3490; J7030; 99285-25

== ENCOUNTER → 2017-04-07 | Outpatient (CLI) | payer OTHER ==
[2017-03-24 10:46] VITALS: BP 99/49
[~2017-04-07] MED LIST changes: +SULF1TAB24 PO
--- NOTE | 2017-04-07 09:56 | RAD ---
Examination: MRI of the left foot without contrast HISTORY: History of left foot pain COMPARISON: None available Technique: Multiplanar, multisequence MR imaging of the left foot were performed without contrast FINDINGS: The distal attachment of the Achilles tendon to the calcaneus grossly appears intact. There is thickened appearance of the medial cord of the plantar fascia proximally with a small focus of probable discontinuity of the fibers of the medial cord of the plantar fascial, best visualized on series 7 image #17 and series 9 image #14 probably small focus of tear with underlying plantar fasciitis. Minimal T2 signal identified in the plantar aspect of the medial calcaneus Fat is present within the sinus tarsi The alignment of the tarsometatarsal joints grossly appears unremarkable. Mild degenerative changes identified in the tarsometatarsal joints The visualized posterior tibialis tendon, flexor hallucis longus, flexor digitorum tendons, peroneal tendons, anterior extensor compartment tendon grossly appears unremarkable The Lisfranc ligament appears intact. The visualized anterior, posterior talofibular ligaments, calcaneofibular ligament, deltoid ligament grossly appears intact. There is mild increased T2 signal identified in the subcutaneous region of the dorsal aspect of the lateral foot probably incomplete fat suppression. Impression: 1. Thickened appearance of the medial cord of the plantar fascia proximally with a small focus of probable discontinuity of the fibers of the medial cord of the plantar fascial, best visualized on series 7 image #17 and series 9 image #14 probably small focus of tear with underlying plantar fasciitis. Electronically signed by: Earl Hector MD (04/07/2017 9:53 AM) [facility]
== END | disposition home or self-care (01) ==
LOC: MRI 07:59
PROVIDERS: ATTEND Podiatrist
DX: M72.2 Plantar fascial fibromatosis (principal); R20.0 Anesthesia of skin; M79.672 Pain in left foot
CPT/HCPCS: 73718

== ENCOUNTER → 2017-09-15 | Outpatient (CLI) | payer OTHER | END | disposition home or self-care (01) | LOC: MAMMO 08:07 | DX: Z12.31 Encounter for screening mammogram for malignant neoplasm of breast (principal) | CPT/HCPCS: 77063; 77067 ==

== ENCOUNTER → 2018-11-24 | Outpatient (CLI) | payer OTHER ==
[~2018-11-24] MED LIST changes: -HYDR-2758 PO; +HYDR-2761 PO
--- NOTE | 2018-11-24 08:58 | RAD ---
DATE: 11/24/2018 EXAM: MAMMO MÓNICA SCREENING BILATERAL HISTORY: Routine screening COMPARISON: 09/15/2017 This study was interpreted with the benefit of Computerized Aided Detection (CAD). Breast Density: HETERO The breast parenchyma is heterogenously dense, which could reduce sensitivity of mammography. Breast parenchyma level C. FINDINGS: 2-D and 3-D tomosynthesis imaging was performed in CC and MLO projections. No new or enlarging breast densities are seen. No spiculated mass or architectural distortion is evident. There are scattered benign type calcifications. No suspicious microcalcifications have developed. IMPRESSION: Stable mammograms without evidence of malignancy. BI-RADS CATEGORY: 2 BENIGN FINDING(S) RECOMMENDED FOLLOW-UP: 12M 12 MONTH FOLLOW-UP PQRS compliance statement: Patient information was entered into a reminder system with a target due date for the next mammogram. Mammography is a sensitive method for finding small breast cancers, but it does not detect them all and is not a substitute for careful clinical examination. A negative mammogram does not negate a clinically suspicious finding and should not result in delay in biopsying a clinically suspicious abnormality. "Our facility is accredited by the [employer] Mammography Program."
== END | disposition home or self-care (01) ==
LOC: MAMMO 08:18
PROVIDERS: ATTEND Family Medicine
DX: Z12.31 Encounter for screening mammogram for malignant neoplasm of breast (principal)
CPT/HCPCS: 77063; 77067

== ENCOUNTER 2019-03-11 10:42 | Emergency (ER) | payer OTHER ==
[~2019-03-11] VITALS: Ht 165.1 cm; Wt 73.5 kg
[2019-03-11] MEDS ORDERED: fentaNYL PF VIAL 100 MCG/2 ML VIAL ONE (10:58)
[2019-03-11] MEDS ORDERED: fentaNYL PF VIAL 100 MCG/2 ML VIAL IM STA (10:58)
[2019-03-11] MEDS ORDERED: ORPHENADRINE CITRATE 60 MG/2 ML VIAL. ONE (10:58)
[2019-03-11] MEDS ORDERED: ONDANSETRON ODT 4 MG TAB.RAPDIS. PO ONE (11:00)
[2019-03-11] MEDS ORDERED: ORPHENADRINE CITRATE 60 MG/2 ML VIAL. IM ONE (11:00)
[2019-03-11] MEDS ORDERED: ONDA4TAB12 PO (11:04)
[2019-03-11] MEDS ORDERED: ORPH100T PO (11:04)
--- NOTE | 2019-03-11 11:04 | PHYS DOC ---
Past Medical History Past Medical History: Diverticulosis, Hypotension Past Surgical History: , Other Additional Past Surgical Histo: carpal tunnel, abscess removed, biopsy on face Alcohol Use: None Drug Use: None Adult General Chief Complaint Chief Complaint: HIP PAIN HPI HPI Patient is a 53 year old female that presents with left-sided low back pain that radiates down her left leg to her toes. Ongoing for week. Patient does not have a history of these symptoms. Not take any medicine prior to arrival. Rates her pain as 10 out of 10 in severity sharp and states she feels pins and needles going down her leg into her foot. Review of Systems Review of Systems Constitutional: Denies fever or chills [] Eyes: Denies change in visual acuity, redness, or eye pain [] HENT: Denies nasal congestion or sore throat [] Respiratory: Denies cough or shortness of breath [] Cardiovascular: No additional information not addressed in HPI [] GI: Denies abdominal pain, nausea, vomiting, bloody stools or diarrhea [] : Denies dysuria or hematuria [] Musculoskeletal: Reports left side back pain, and pain radiating down leg. Integument: Denies rash or skin lesions [] Neurologic: Denies headache, focal weakness or sensory changes [] Endocrine: Denies polyuria or polydipsia [] Complete systems were reviewed and found to be within normal limits, except as documented in this note. Current Medications Current Medications Current Medications Medications (Trade) Dose Ordered Sig/Ann Start Time Stop Time Status Last Admin Dose Admin Fentanyl Citrate (Fentanyl 2ml Vial) 100 mcg STK-MED ONCE 03/11/19 10:58 03/11/19 10:58 DC Orphenadrine Citrate (Norflex) 60 mg STK-MED ONCE 03/11/19 10:58 03/11/19 10:58 DC Allergies Allergies Allergies Coded Allergies Type Severity Reaction Last Updated Verified banana Allergy Severe SWELLING 02/05/14 Yes walnut Allergy Severe 12/03/15 Yes [place] And Derivatives Allergy Intermediate Itching 02/05/14 Yes latex Allergy Intermediate Itching 02/05/14 Yes I S O L A T I O N *CONTACT* Allergy Unknown 01/20/17 Yes NSAIDS (Non-Steroidal Anti-Inflamma Adverse Reaction Mild Nausea and Vomiting 03/22/17 Yes Physical Exam Physical Exam Constitutional: Well developed, well nourished, no acute distress, non-toxic appearance. [] HENT: Normocephalic, atraumatic, bilateral external ears normal, oropharynx moist, no oral exudates, nose normal. [] Eyes: PERRLA, EOMI, conjunctiva normal, no discharge. [] Neck: Normal range of motion, no tenderness, supple, no stridor. [] Cardiovascular:Heart rate regular rhythm, no murmur [] Lungs & Thorax: Bilateral breath sounds clear to auscultation [] Abdomen: Bowel sounds normal, soft, no tenderness, no masses, no pulsatile masses. [] Skin: Warm, dry, no erythema, no rash. [] Back: Left sided lower back tenderness. ] Extremities: No tenderness, no cyanosis, no clubbing, ROM intact, no edema. [] Neurologic: Alert and oriented X 3, normal motor function, normal sensory function, no focal deficits noted. [] Psychologic: Affect normal, judgement normal, mood normal. [] Current Patient Data Vital Signs Vital Signs Date Time Temp Pulse Resp B/P (MAP) Pulse Ox O2 Delivery O2 Flow Rate FiO2 03/11/19 10:52 97.0 95 18 142/88 (106) 98 Room Air 97.0 EKG EKG [] Radiology/Procedures Radiology/Procedures [] Course & Med Decision Making Course & Med Decision Making Pertinent Labs and Imaging studies reviewed. (See chart for details) Appears to be having sciatica. Patient becomes extremely nauseous with many medications per patient. Will give IM fentanyl, ODT zofran, and will also give muscle relaxer. Will write a script for zofran ODT, and norflex. Dragon Disclaimer Dragon Disclaimer This electronic medical record was generated, in whole or in part, using a voice recognition dictation system. Departure Departure Impression: Primary Impression: Sciatica of left side Disposition: 01 HOME, SELF-CARE Condition: STABLE Referrals: MARILEE AQUINO MD (PCP) Patient Instructions: Sciatica, Sciatica with Rehab-[facility] Additional Instructions: Thank you for visiting [facility]. We appreciate you trusting us with your care. If any additional problems come up don't hesitate to return to visit us. Please follow up with your primary care provider so they can plan additional care if needed and know about the problem that you had. If symptoms worsen come back to the Emergency Department. Any concerning symptoms that start such as chest pain, shortness of air, weakness or numbness on one side of the body, running high fevers or any other concerning symptoms return to the ER. Please fill your medications at any pharmacy and follow the prescription instructions. Scripts Orphenadrine Citrate (ORPHENADRINE CITRATE) 100 Mg Tablet.er 1 TAB PO BID PRN for MUSCLE PAIN, #15 TAB Prov: MARIETTA CRUZ APRN 03/11/19 Ondansetron (ONDANSETRON ODT) 4 Mg Tab.rapdis 1 TAB PO PRN Q6-8HRS PRN for NAUSEA, #16 TAB Prov: MARIETTA CRUZ APRN 03/11/19 MARIETTA CRUZ APRN Mar 11, 2019 11:04
[2019-03-12] MEDS ORDERED: ONDA4TAB12 PO/SL (15:56)
== END 2019-03-11 11:20 | disposition home or self-care (01) ==
LOC: ER 10:42
DX: M54.42 Lumbago with sciatica, left side (principal); Z91.040 Latex allergy status; Z91.041 Radiographic dye allergy status; Z88.6 Allergy status to analgesic agent; Z91.018 Allergy to other foods
CPT/HCPCS: 96372; 99284; J2360; J3010; Q0162

== ENCOUNTER 2019-03-12 14:00 | Emergency (ER) | payer OTHER ==
[~2019-03-12] VITALS: Ht 165.1 cm; Wt 74.8 kg
[~2019-03-12 14:00] MED LIST changes: +ONDA4TAB12 PO; +ORPH100T PO
[2019-03-12 14:55] VITALS: BP 112/76
[2019-03-12] MEDS ORDERED: ONDA4TAB12 PO/SL (15:56)
--- NOTE | 2019-03-12 15:58 | PHYS DOC ---
Past Medical History Past Medical History: Diverticulosis, Hypotension, Sciatica Past Surgical History: , Other Additional Past Surgical Histo: carpal tunnel, abscess removed, biopsy on face Alcohol Use: None Drug Use: None Adult General Chief Complaint Chief Complaint: LOWER BACK PAIN OR INJURY [facility] HPI Patient is a 53 year old [female] who presents with [left hip and sciatic-type pain. Patient reports she had been seen here day prior, having given shots and prescription for tizanidine. Reports she felt better after she left the hospital yesterday, but has continued to have some discomfort since that time. Reports she has not able to take NSAIDs because they cause her to be nauseous and vomit. States she has not taken anything other than because an attending, does report she was able to sleep last night because she had felt better after leaving the hospital. States she does not know what caused her issues in the first place, r eports she had been sleeping in a short bed with a family member, believes this was the cause of her pain initially. Denies additional complaints, reports pain is mostly constant, worse when she moves her leg or put pressure on her left hip.] Review of Systems Review of Systems Constitutional: Denies fever or chills [] Eyes: Denies change in visual acuity, redness, or eye pain [] HENT: Denies nasal congestion or sore throat [] Respiratory: Denies cough or shortness of breath [] Cardiovascular: No additional information not addressed in HPI [] GI: Denies abdominal pain, nausea, vomiting, bloody stools or diarrhea denies loss of bowel or bladder[] : Denies dysuria or hematuria [] Musculoskeletal: Reports pain to left hip, shooting down her left leg[] Integument: Denies rash or skin lesions [] Neurologic: Denies headache, focal weakness or sensory changes [] Endocrine: Denies polyuria or polydipsia [] All other systems were reviewed and found to be within normal limits, except as documented in this note. Current Medications Current Medications Current Medications Medications (Trade) Dose Ordered Sig/Ann Start Time Stop Time Status Last Admin Dose Admin Ketorolac Tromethamine (Toradol 30mg Vial) 30 mg 1X ONCE 03/12/19 16:15 03/12/19 16:16 DC 03/12/19 16:02 30 MG Methylprednisolone Acetate (DEPO-Medrol 80MG VIAL) 80 mg 1X ONCE 03/12/19 16:15 03/12/19 16:16 DC 03/12/19 16:02 80 MG Allergies Allergies Allergies Coded Allergies Type Severity Reaction Last Updated Verified banana Allergy Severe SWELLING 02/05/14 Yes walnut Allergy Severe 12/03/15 Yes [place] And Derivatives Allergy Intermediate Itching 02/05/14 Yes latex Allergy Intermediate Itching 02/05/14 Yes I S O L A T I O N *CONTACT* Allergy Unknown 01/20/17 Yes NSAIDS (Non-Steroidal Anti-Inflamma Adverse Reaction Mild Nausea and Vomiting 03/22/17 Yes Physical Exam Physical Exam Constitutional: Well developed, well nourished, no acute distress, non-toxic appearance. [] HENT: Normocephalic, atraumatic, bilateral external ears normal, oropharynx moist, no oral exudates, nose normal. [] Eyes: PERRLA, EOMI, conjunctiva normal, no discharge. [] Neck: Normal range of motion, no tenderness, supple, no stridor. [] Cardiovascular:Heart rate regular rhythm, no murmur [] Lungs & Thorax: Bilateral breath sounds clear to auscultation [] Abdomen: Bowel sounds normal, soft, no tenderness, no masses, no pulsatile masses. [] Skin: Warm, dry, no erythema, no rash. [] Back: No tenderness, no CVA tenderness. [] Extremities: No tenderness, no cyanosis, no clubbing, ROM intact, no edema. Pain on medial rotation of left hip, reports pain is a shooting pain going down her left leg also reports discomfort when raising leg, similar shooting pain down her left leg. [] Neurologic: Alert and oriented X 3, normal motor function, normal sensory function, no focal deficits noted. [] Psychologic: Affect normal, judgement normal, mood normal. [] Current Patient Data Vital Signs Vital Signs Date Time Temp Pulse Resp B/P (MAP) Pulse Ox O2 Delivery O2 Flow Rate FiO2 03/12/19 14:55 98.1 70 20 112/76 (88) 98 Room Air 98.1 EKG EKG [] Radiology/Procedures Radiology/Procedures [] Course & Med Decision Making Course & Med Decision Making Pertinent Labs and Imaging studies reviewed. (See chart for details) [Discussed option for NSAIDs with a rx for nausea medication so she is able to take them. Discussed anti-inflammatories steroids are the best medications to treat sciatic type pain, patient in agreement with this plan. We'll administer IM steroids here, administer Toradol here. Patient in agreement to Toradol injection, and she does not have to take it orally, and oral medications I will culture the nausea. Patient to follow up with her primary care for further concerns.] Eulalioon Disclaimer Dragon Disclaimer This electronic medical record was generated, in whole or in part, using a voice recognition dictation system. Departure Departure Impression: Primary Impression: Sciatica of left side Disposition: HOME, SELF-CARE Condition: GOOD Referrals: MARILEE AQUINO MD (PCP) Patient Instructions: Sciatica, [id number] Additional Instructions: As we discussed Anti-inflammatory medications are the best treatment for her sciatic pain. Try to make sure you're taking 4 mg to 600 mg of ibuprofen every 6 hours, take the nausea medication at a time and taking with some food see her feeling less nauseous. We have given him a shot of steroids today, which will help with the inflammation. Continue to take the tizanidine which were prescribed yesterday. Follow-up with your primary care provider couple days to see if you're improving Scripts Ondansetron (ONDANSETRON ODT) 4 Mg Tab.rapdis 1 TAB PO/SL PRN Q6-8HRS, #16 TAB Prov: ASHLEIGH GILLIAM APRN 03/12/19 ASHLEIGH GILLIAM APRN Mar 12, 2019 15:58
[2019-03-12] MEDS: KETOROLAC 30 MG/ML VIAL. IM ONE (16:01)
[2019-03-12] MEDS: methylPREDNISolone ACETATE 80 MG/ML VIAL. IM ONE (16:02)
[2019-03-13] MEDS ORDERED: HYDR-3164 PO (18:46)
== END 2019-03-12 16:40 | disposition home or self-care (01) ==
LOC: ER 14:00
DX: M54.42 Lumbago with sciatica, left side (principal); M25.552 Pain in left hip; Z91.040 Latex allergy status; Z91.041 Radiographic dye allergy status; Z88.6 Allergy status to analgesic agent; Z91.018 Allergy to other foods
CPT/HCPCS: 96372; 99284; J1040; J1885

== ENCOUNTER 2019-03-13 15:03 | Emergency (ER) | payer OTHER ==
[~2019-03-13] VITALS: Ht 165.1 cm; Wt 74.8 kg
[~2019-03-13 15:03] MED LIST changes: +ONDA4TAB12 PO/SL
[2019-03-13] MEDS ORDERED: DEXAMETHASONE 4 MG TABLET PO STA (17:05)
[2019-03-13] MEDS ORDERED: fentaNYL PF VIAL 100 MCG/2 ML VIAL IM STA (17:05)
--- NOTE | 2019-03-13 17:11 | PHYS DOC ---
Past Medical History Past Medical History: Diverticulosis, Hypotension, Sciatica Past Surgical History: , Other Additional Past Surgical Histo: carpal tunnel, abscess removed, biopsy on face Alcohol Use: None Drug Use: None Adult General Chief Complaint Chief Complaint: LOWER BACK PAIN OR INJURY HPI HPI Patient is a 53 year old female that presents with sciatic back pain. This is the third day in a row that the patient's been seen in the ER. I saw this patient on Wednesday. The patient states that she is getting temporary relief in the ER but in the relief is wearing off all she's at home. The pain is 10 out of 10 in severity. and sharp and going down the leg. She's been taking anti- inflammatories at home as well as Zofran to help with the upset stomach. The patient states that she also was given a steroid yesterday. Also been taking muscle relaxers at home. Review of Systems Review of Systems Constitutional: Denies fever or chills [] Eyes: Denies change in visual acuity, redness, or eye pain [] HENT: Denies nasal congestion or sore throat [] Respiratory: Denies cough or shortness of breath [] Cardiovascular: No additional information not addressed in HPI [] GI: Denies abdominal pain, nausea, vomiting, bloody stools or diarrhea [] : Denies dysuria or hematuria [] Musculoskeletal: Reports back pain with sciatica. Integument: Denies rash or skin lesions [] Neurologic: Denies headache, focal weakness or sensory changes [] Endocrine: Denies polyuria or polydipsia [] Complete systems were reviewed and found to be within normal limits, except as d ocumented in this note. Current Medications Current Medications Current Medications Medications (Trade) Dose Ordered Sig/[facility] Start Time Stop Time Status Last Admin Dose Admin Dexamethasone (Decadron) 10 mg 1X STAT 03/13/19 17:05 03/13/19 17:10 DC 03/13/19 17:43 10 MG Fentanyl Citrate (Fentanyl 2ml Vial) 100 mcg 1X STAT 03/13/19 17:05 03/13/19 17:10 DC 03/13/19 17:43 100 MCG Ketorolac Tromethamine (Toradol Im) 30 mg 1X ONCE 03/13/19 17:30 03/13/19 17:31 DC 03/13/19 17:43 30 MG Ondansetron HCl (Zofran Odt) 4 mg 1X ONCE 03/13/19 18:00 03/13/19 18:02 DC 03/13/19 17:43 4 MG Ondansetron HCl (Zofran) 4 mg 1X ONCE 03/13/19 17:30 03/13/19 17:23 DC Allergies Allergies Allergies Coded Allergies Type Severity Reaction Last Updated Verified banana Allergy Severe SWELLING 02/05/14 Yes walnut Allergy Severe 12/03/15 Yes [place] And Derivatives Allergy Intermediate Itching 02/05/14 Yes latex Allergy Intermediate Itching 02/05/14 Yes I S O L A T I O N *CONTACT* Allergy Unknown 01/20/17 Yes NSAIDS (Non-Steroidal Anti-Inflamma Adverse Reaction Mild Nausea and Vomiting 03/22/17 Yes Physical Exam Physical Exam Constitutional: Well developed, well nourished, no acute distress, non-toxic appearance. [] HENT: Normocephalic, atraumatic, bilateral external ears normal, oropharynx moist, no oral exudates, nose normal. [] Eyes: PERRLA, EOMI, conjunctiva normal, no discharge. [] Neck: Normal range of motion, no tenderness, supple, no stridor. [] Abdomen: Bowel sounds normal, soft, no tenderness, no masses, no pulsatile masses. [] Skin: Warm, dry, no erythema, no rash. [] Back: left sided back tenderness. Extremities: No tenderness, no cyanosis, no clubbing, ROM intact, no edema. [] Neurologic: Alert and oriented X 3, normal motor function, normal sensory functi on, no focal deficits noted. [] Psychologic: Affect normal, judgement normal, mood normal. [] Current Patient Data Vital Signs Vital Signs Date Time Temp Pulse Resp B/P (MAP) Pulse Ox O2 Delivery O2 Flow Rate FiO2 03/13/19 17:43 100 Room Air EKG EKG [] Radiology/Procedures Radiology/Procedures [] Course & Med Decision Making Course & Med Decision Making Pertinent Labs and Imaging studies reviewed. (See chart for details) The patient has been dealing with Sciatica. Will give a shot of Fentanyl, long acting steroid, anti inflammatory while in ER. Patient is still in extreme pain after medication. Will page Dr. Pichardo ([phone]). Dr. Christine returned call ([phone]). Was not willing to admit for pain control as they would not be able to do an MRI inpatient and states it would be better to perform outpatient. Dragon Disclaimer Dragon Disclaimer This electronic medical record was generated, in whole or in part, using a voice recognition dictation system. Departure Departure Impression: Primary Impression: Sciatica of left side Disposition: HOME, SELF-CARE Condition: STABLE Referrals: MARILEE PICHARDO MD (PCP) ERIN WRIGHT MD Patient Instructions: Sciatica, Sciatica with Rehab-[facility] Additional Instructions: Thank you for visiting [facility]. We appreciate you trusting us with your care. If any additional problems come up don't hesitate to return to visit us. Please follow up with your primary care provider so they can plan additional care if needed and know about the problem that you had. If symptoms worsen come back to the Emergency Department. Any concerning symptoms that start such as chest pain, shortness of air, weakness or numbness on one side of the body, running high fevers or any other concerning symptoms return to the ER. Scripts Hydrocodone/Apap 5-325 (NORCO 5-325 TABLET) 1 Each Tablet 1-2 TAB PO Q4-6HRS PRN for PAIN, #10 TAB Prov: MARIETTA CRUZ APRN 03/13/19 MARIETTA CRUZ APRN Mar 13, 2019 17:11
[2019-03-13 17:30] VITALS: BP 108/64
[2019-03-13] MEDS ORDERED: ONDANSETRON PF 4 MG/2 ML VIAL. IV ONE (17:30)
[2019-03-13] MEDS ORDERED: KETOROLAC 60 MG/2 ML VIAL. IM ONE (17:30)
[2019-03-13] MEDS ORDERED: ONDANSETRON ODT 4 MG TAB.RAPDIS. PO ONE (18:00)
[2019-03-13] MEDS ORDERED: HYDR-3164 PO (18:46)
== END 2019-03-13 19:00 | disposition home or self-care (01) ==
LOC: ER 15:03
DX: M54.42 Lumbago with sciatica, left side (principal); Z98.890 Other specified postprocedural states; Z88.8 Allergy status to other drugs, medicaments and biological substances; Z91.041 Radiographic dye allergy status; Z91.018 Allergy to other foods; Z91.040 Latex allergy status
CPT/HCPCS: 96372; 99284; J1885; J3010; J8540; Q0162

== ENCOUNTER → 2019-03-14 | Outpatient (CLI) | payer OTHER ==
[2019-03-13 17:30] VITALS: BP 108/64
[~2019-03-14] MED LIST changes: +HYDR-3164 PO
--- NOTE | 2019-03-14 14:32 | KCIC ---
EXAMINATION: Magnetic resonance imaging (MRI) of the lumbar spine without contrast 03/14/2019 2:00 PM HISTORY: Lumbar radiculopathy, worse on the left. TECHNIQUE: Multiplanar multi-weighted MRI of the lumbar spine was performed without intravenous contrast using the standard lumbar spine protocol. Contrast information: None administered. COMPARISON: None available. FINDINGS: Minimal anterolisthesis of L5 on S1. Vertebral bodies demonstrate normal signal intensity on all sequences. There are no compression fractures. The conus medullaris terminates at the level of L1. The distal spinal cord signal intensity is normal. There is mild disc height loss at L3-L4 and L4-L5 with disc desiccation from L2-L3 through L5-S1. Vacuum disc phenomenon is identified at L5-S1. Limited views of the abdomen and pelvis show no soft tissue abnormality. The aorta is normal. Osseous hemangioma is identified involving the posterior right L1 vertebral body. T12-L1: Disc is normal in configuration. No significant facet arthropathy. No neuroforaminal or spinal canal stenosis. L1-L2: The disc is normal in configuration. There is no facet arthropathy. There is no neuroforaminal stenosis. There is no spinal canal stenosis. L2-L3: Mild disc bulge. There is no facet arthropathy. There is mild right neuroforaminal stenosis. There is no spinal canal stenosis. L3-L4: There is mild circumferential disc bulge. There is mild facet arthropathy. There is mild bilateral neuroforaminal stenosis. There is no spinal canal stenosis. L4-L5: Disc bulge with central disc protrusion. There is moderate left and mild right facet arthropathy. There is moderate left neuroforaminal stenosis with mild narrowing of the left lateral recess. No definite impingement of the traversing left L5 nerve root. There is no spinal canal stenosis. L5-S1: Mild disc bulge. There is moderate to severe left and moderate right facet arthropathy. There is moderate left and mild right neuroforaminal stenosis. There is no spinal canal stenosis. IMPRESSION: Mild degenerative changes of the lumbar spine as described in detail above. Specifically, there is a central disc protrusion at L4-L5 with moderate left and moderate facet arthropathy resulting in moderate left neuroforaminal stenosis and mild narrowing of the left lateral recess. Electronically signed by: Johanna Galvez MD (03/14/2019 2:29 PM) [email or web address]
== END | disposition home or self-care (01) ==
LOC: KCIC MRI 12:58
PROVIDERS: ATTEND Family Medicine
DX: M47.26 Other spondylosis with radiculopathy, lumbar region (principal); M51.16 Intervertebral disc disorders with radiculopathy, lumbar region; M48.07 Spinal stenosis, lumbosacral region; M46.87 Other specified inflammatory spondylopathies, lumbosacral region; M53.3 Sacrococcygeal disorders, not elsewhere classified; D18.09 Hemangioma of other sites
CPT/HCPCS: 72148

== ENCOUNTER → 2019-03-16 | Outpatient (CLI) | payer OTHER ==
[2019-03-13 17:30] VITALS: BP 108/64
--- NOTE | 2019-03-17 08:09 | RAD ---
LUMBAR SPINE FLEX/EXTI ONLY 03/16/2019 12:00 AM Indication: Spondylolisthesis, back pain COMPARISON: MRI lumbar spine 03/14/2019 TECHNIQUE: 2 views of the lumbar spine are provided. Findings: Grade 1 anterolisthesis of L5 and S1 with minimal shift in alignment upon flexion and extension. Upon flexion, there is approximately 8 mm anterolisthesis of L5 on S1 and with extension there is approximately 4 mm anterolisthesis. There is moderate osseous neuroforaminal stenosis at L5-S1. Impression: Grade 1 anterolisthesis of L5 on S1 with shift in alignment upon flexion and extension. Electronically signed by: Johanna Galvez MD (03/17/2019 8:06 AM) [email or web address]
== END | disposition home or self-care (01) ==
LOC: RAD 11:15
PROVIDERS: ATTEND Neurological Surgery
DX: M43.17 Spondylolisthesis, lumbosacral region (principal); M48.07 Spinal stenosis, lumbosacral region
CPT/HCPCS: 72120

== ENCOUNTER → 2019-03-16 | Outpatient (CLI) | payer OTHER ==
[2019-03-13 17:30] VITALS: BP 108/64
[~2019-03-16] MED LIST changes: +IOHEXOL 180 MG/ML 10 ML VIAL. ONE; +methylPREDNISolone ACETATE 40 MG/ML VIAL. ONE; +methylPREDNISolone ACETATE 80 MG/ML VIAL. ONE
--- NOTE | 2019-03-17 12:30 | PAIN ---
DATE OF SERVICE: 03/16/2019 INITIAL CONSULTATION FOR PAIN CLINIC CHIEF COMPLAINT: Low back and left lower extremity pain. HISTORY OF PRESENT ILLNESS: This is a 53-year-old female who presents with history of pain in the low back and left lower extremity for about 10 days, not a result of any specific injury or action that she is aware of, but she was sleeping on a trundle bed with her granddaughter as she was afraid of some storms that we were having that day and it was a bit of an awkward position for her to lay in. After that time, the pain has been significantly worse in the low back and left lower extremity. She has had 2 trips to the Emergency Department, has had some injections with steroid as well as pain medicines, were only providing temporary relief. The patient presented to her neurosurgeon, did have an MRI scan done yesterday of lumbar spine showing degenerative changes with central disk protrusion at L4-L5 with moderate left and moderate facet arthropathy resulting in moderate left neural foraminal stenosis and mild narrowing of the left lateral recess at that level. The patient reports the pain is getting worse with standing, walking and changing positions. She is lying on her right side on presentation today and trying to keep all the weight off her left leg if at all possible. The patient reports the pain is constant, sharp, stabbing, throbbing, shooting with numbness in the leg and all the toes and foot on her left leg, mostly in the posterior gluteus, posterolateral thigh, lateral anterior thigh, posterior calf, lateral calf and medial lower leg and foot. The patient reports she cannot sleep secondary to the pain. Awakens her from sleep frequently. She feels it affects her bladder control as well but no specific incontinence. The patient reports it significantly impedes her ability to walk and she is using crutches to ambulate. The patient has tried hydrocodone, which helps by about 20%. She had no other formal physical therapies or other treatments at this time. PAST MEDICAL HISTORY: Significant for acute diverticulosis and arthritis. PREVIOUS SURGERIES: Include a carpal tunnel repair and femoral nerve surgery. CURRENT MEDICATIONS: Include [place], orphenadrine, Flonase, iron and multivitamin. FAMILY HISTORY: Significant for cancers, diabetes and headaches. 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 SOCIAL HISTORY: The patient does not smoke, drinks only very rarely alcohol, is , lives with her spouse, lives locally in [place], [place]. REVIEW OF SYSTEMS: The patient's review of systems is positive for those items mentioned in history of present illness. All systems reviewed and otherwise negative. It is complete, full and well documented on the patient's chart. PHYSICAL EXAMINATION: VITAL SIGNS: Today, the patient's blood pressure is 137/71, pulse 86, respirations are 16, temperature 98.1 degrees Fahrenheit, height is 5 feet 5 inches and weight is 160 pounds. GENERAL: The patient is awake, alert, oriented, appropriate, very pleasant demeanor. The patient is accompanied by her spouse. HEENT: Head shows normocephalic, atraumatic. Extraocular movements are intact and symmetrical. Oral cavity: Mucous membranes moist and pink. Dentition is intact. NECK: Shows anterior throat supple without palpable lymphadenopathy noted. Swallow reflex symmetrical. CHEST: Shows normal on inspection. Breath sounds clear to auscultation bilaterally. HEART: Shows S1, S2 clear. No murmurs auscultated. ABDOMEN: Soft, nontender and nondistended. No palpable organomegaly is noted. No rebound or guarding demonstrated. BACK: Shows spine grossly in the midline. Normal-appearing thoracic kyphosis and lumbar lordotic curvature. Lumbar paraspinous muscle shows symmetrical on inspection. With palpation some moderate tenderness diffusely, but only diffusely bilaterally in the lower lumbar distribution. The patient has good rotational motion of lumbar spine, both laterally as well as extension and flexion without difficulty. No tenderness over the spinous processes, sacrum or sacroiliac regions. EXTREMITIES: Lower extremities show deep tendon reflexes at 2+ patellar, 1+ tendo-calcaneus tendons. Motor exam is 5/5 with dorsiflexion, extension, quadriceps and hamstring flexion, but significant tenderness is noted with flexion and extension of the left lower extremity but not to the right. However, peripheral pulses are 1+ to posterior tibia. No peripheral edema is noted. Lower extremities are warm and dry to touch, equal in color and appearance. Straight leg raise is noted to be positive on the left at about 30-35 degrees, decreased with knee flexion, but not relieved. Right side is negative. The patient has difficulty getting from a sitting to standing position and prefers to be lying on her right side with repositioning significant tenderness and significant favoring of the left lower extremity. We are trying not to put any weightbearing on it, whatsoever, even with crutches. SKIN: Shows warm and dry, good turgor. No edema. No sores, rashes or bruising throughout. IMPRESSION: 1. This is a 53-year-old female with approximate 10-day history of increasing pain in low back and left lower extremity in a radicular fashion. 2. MRI scan of lumbar spine as noted. 3. History of arthritis. PLAN: Options were discussed with the patient and the patient's spouse including conservative medical management, physical therapies and interventional techniques. She would like to pursue interventional techniques. We discussed a lumbar epidural steroid injection using description as well as anatomical models to describe the procedure. Risks were then discussed including, but not limited to bleeding, infection, possibility of epidural hematoma, subsequent neurological compromise, dural puncture, headaches, spinal cord and/or nerve damage, side effects of steroid medication and poor results regarding pain control. The patient understands and wished to proceed. The patient will return to the clinic in approximately 2 weeks for followup. She was counseled on return appointment, activity level and side effects to be aware of. DIAGNOSIS: Lumbar radiculopathy with lumbar degenerative disk disease. PROCEDURE: Lumbar epidural steroid injection, translaminar approach at L4-L5 level using C-arm fluoroscopic guidance under sterile prep and drape using local anesthetic. MEDICATION INJECTED: A total of 120 mg Depo-Medrol plus 10 mL of preservative-free normal saline and 2 mL of contrast. CONDITION AT DISCHARGE: Stable. The patient tolerated the procedure well, had no complications. ARLENE MARR MD DR: BOOM/flavia JOB#: [id number] / [id number]
== END ==
LOC: PNCL 12:10
PROVIDERS: ATTEND Anesthesiology
DX: M51.16 Intervertebral disc disorders with radiculopathy, lumbar region (principal)
CPT/HCPCS: 62323; J1030; J1040; Q9965

== ENCOUNTER → 2019-03-27 | Outpatient (CLI) | payer OTHER ==
[2019-03-13 17:30] VITALS: BP 108/64
[~2019-03-27] MED LIST changes: +IOHEXOL 180 MG/ML 10 ML VIAL. IT ONE; -IOHEXOL 180 MG/ML 10 ML VIAL. ONE; +LIDOCAINE 1% Multi-Dose 20 ML VIAL. ID ONE; -methylPREDNISolone ACETATE 40 MG/ML VIAL. ONE; -methylPREDNISolone ACETATE 80 MG/ML VIAL. ONE
--- NOTE | 2019-03-27 11:34 | KCIC ---
Lumbar Myelogram History: Lumbar radiculopathy, pain for 3 to 4 weeks, spondylolisthesis Technique: Patient was informed of the risks of the procedure to include pain, infection, bleeding, seizures, nerve root injury, and allergic reaction to the contrast. All questions were answered. Patient signed a written consent form for a lumbar myelogram. The patient was placed in a prone oblique position on the fluoroscopy table. External site of the lower back was prepped and draped in the usual sterile fashion. Betadine was utilized for cleansing solution. 1% lidocaine was utilized for local anesthesia at the anticipated site of puncture right L3-4 interlaminar space. A 19-gauge guiding needle was advanced into the soft tissues. Through the guiding needle, a 25 gauge Elizabeth needle was advanced until there was return of cerebral spinal fluid. Approximately 15 cc of Omnipaque 180 were then injected during fluoroscopic visualization. The needles were removed. Bandage was applied. Fluoroscopic spot images including standing images were acquired of the lumbar spine. The patient was then transferred to the CT department for CT examination of the lumbar spine. There were no immediate complications. Fluoroscopy time: 50 seconds, 14 images Findings: There is transitional anatomy as better delineated on CT performed the same day. There is grade 1 anterior spondylolisthesis at what is considered S1-S2 for this report, somewhat reduced with flexion. There was no evidence of myelographic block. There are small anterior extradural defects at what is considered L3-4 through S1-S2. There is mild levoscoliosis. Impression: 1. There is transitional anatomy of the lumbar spine as better delineated on CT performed the same day. There is grade 1 anterior spondylolisthesis at what will be considered S1-2 for this report, somewhat reduced with flexion. There are small anterior extradural defects at what is considered L3-4 through S1-2. Electronically signed by: Ramon Rodríguez MD (03/27/2019 11:31 AM) [email or web address]
--- NOTE | 2019-03-27 11:36 | KCIC ---
CT lumbar spine exam History: Lumbar radiculopathy, spondylolisthesis, pain for 3 to 4 weeks Technique: CT imaging was performed of the lumbar spine after injection for lumbar myelogram. Multiplanar reconstruction images are submitted. Exposure: One or more of the following individualized dose reduction techniques were utilized for this examination: 1. Automated exposure control 2. Adjustment of the mA and/or kV according to patient size 3. Use of iterative reconstruction technique. Comparison: March 14, 2019 lumbar spine MRI exam Findings: There is transitional anatomy of the lumbar spine. Based on the assumption of 12 thoracic ribs which are not fully evaluated and 5 lumbar type vertebral bodies, there is lumbarization of what is considered S1. There is grade 1 anterior spondylolisthesis at what will be considered S1-S2. There is right S1 spondylolysis. Vertebral body stature is overall maintained. Conus terminates at what is considered the mid to inferior aspect of L1. There is [id number] degenerative disc disease of what is considered L4-5 and minimally L5-S1. There is also narrowing of the S1-2 intervertebral disc space likely in part on developmental basis. There is a left adrenal mass which is not fully included about 2.1 cm in size, density measurements suggestive of adenoma -5 Hounsfield units. There is degree of sigmoid diverticulosis, also not fully included. T12-L1: Neural foramina and spinal canal are adequate. L1-L2: Neural foramina and spinal canal are adequate. There is mild facet degenerative change. L2-L3: There is mild buckling of the ligamentum flavum and [id number] facet hypertrophic change. Neural foramina and spinal canal are adequate. L3-L4: There is mild to moderate facet degenerative change and minimal buckling of the ligamentum flavum. There is negligible disc osteophyte complex. Spinal canal and neural foramina are adequate. L4-L5: There is shallow protrusion in the inferior right neural foramen, overall mild narrowing of the right neural foramen in combination with facet degenerative change. Protrusion is near the extraforaminal right L4 nerve root without significant displacement. Left neural foramen is adequate. Spinal canal is adequate. There is minimal buckling of the ligamentum flavum and facet degenerative change. L5-S1: There is mild to moderate facet degenerative change and mild buckling of the ligamentum flavum. There is shallow posterior bulge and central protrusion without significant neural impingement or spinal stenosis. There is [id number] narrowing of the left neural foramen by facet and disc osteophyte complex, right neural foramen overall adequate. S1-S2: There is severe facet hypertrophic change. Spinal canal is adequate. There is partial uncovering of the posterior aspect of the disc due to spondylolisthesis. There is also disc osteophyte complex in the inferior left neural foramen. There is severe narrowing of the left neural foramen with impingement of what is considered the exiting left S1 nerve root. Right neural foramen is adequate. Impression: 1. There is transitional anatomy of the lumbar spine as described, grade 1 anterior spondylolisthesis at what is considered S1-S2 for this exam (previously described as L5-S1 on February 2019 lumbar spine MRI exam). There is right S1 spondylolysis and severe bilateral facet degenerative change. 2. There is severe narrowing of what is considered the left S1-S2 neural foramen with impingement of exiting left S1 nerve root by disc osteophyte complex. There is a lesser degree of mild to moderate narrowing on the left at L5-S1, minimal narrowing on the right at L4-L5. 3. There is no significant lumbar spinal stenosis. 4. There is degenerative disc disease greatest at what is considered L4-5, also narrowing of the S1-S2 intervertebral disc space likely in part on developmental basis. 5. There is a left adrenal mass which is not fully included, likely adenoma. Electronically signed by: Ramon Rodríguez MD (03/27/2019 11:33 AM) [email or web address]
== END | disposition home or self-care (01) ==
LOC: KCIC 08:46
PROVIDERS: ATTEND Neurological Surgery
DX: M54.16 Radiculopathy, lumbar region (principal); M43.16 Spondylolisthesis, lumbar region
CPT/HCPCS: 62305; 72132; Q9965; 72265

== ENCOUNTER → 2019-04-13 | Outpatient (CLI) | payer OTHER ==
[~2019-04-13] MED LIST changes: -IOHEXOL 180 MG/ML 10 ML VIAL. IT ONE; +IOHEXOL 180 MG/ML 10 ML VIAL. ONE; -LIDOCAINE 1% Multi-Dose 20 ML VIAL. ID ONE; +methylPREDNISolone ACETATE 40 MG/ML VIAL. ONE; +methylPREDNISolone ACETATE 80 MG/ML VIAL. ONE
--- NOTE | 2019-04-13 17:28 | PN ---
DATE: 04/13/2019 PROGRESS NOTE FOR PAIN CLINIC DIAGNOSES: Lumbar radiculopathy with lumbar degenerative disk disease and lumbar spinal stenosis. HISTORY OF PRESENT ILLNESS: The patient is a 53-year-old female who returns for followup status post lumbar epidural steroid injection x 1. The patient reports about 50% improvement, doing much better, was able to bear weight on her left leg. She has recently had a CT scan and myelogram, which were reviewed with her today. Also, she has seen her neurosurgeon who is recommending surgery if not significantly better after injections. The patient reports the numbness is much decreased in her left leg. She is able to walk and ambulate without assistance now. She is not using her crutches any longer. Last time she was seen, she was unable to bear weight on her left leg. The patient reports it is much better, but still some significant numbness and pain in the left leg, posterior gluteus, posterolateral thigh, lateral anterior thigh, medial thigh, medial lower leg and posterior calf on the left side. The patient reports it is aching, dull, burning, on and off in intensity, worse with weightbearing, better with sitting or lying down, does awakens her from sleep occasionally, but when she is on her left side. The patient reports it is a 4 on a scale of 10 at its worst over the past week, 3 on average and 1 at its least and is a 4 today. The patient reports no new motor or sensory deficits, no new bowel or bladder incontinence. She has increased her standing longer, doing work activities with better ease and comfort and traveling better as well as sleeping with better ease and comfort as well. PHYSICAL EXAMINATION: VITAL SIGNS: The patient's blood pressure 130/85, pulse 79, respirations 16, temperature 97.5 degrees Fahrenheit, weight is 166 pounds. GENERAL: The patient is awake, alert, oriented, appropriate, very pleasant demeanor. HEENT: Head shows normocephalic, atraumatic. Extraocular movements are intact and symmetrical. Oral cavity: Mucous membranes moist and pink. Dentition is intact. NECK: Shows anterior throat supple without palpable lymphadenopathy noted. Swallow reflex symmetrical. CHEST: Shows normal on inspection. Breath sounds are clear to auscultation bilaterally. HEART: Shows S1, S2 clear. No murmurs auscultated. ABDOMEN: Soft, nontender, nondistended. No palpable organomegaly is noted. No rebound or guarding demonstrated. BACK: Shows spine grossly in the midline. Normal appearing thoracic kyphosis and some minor flattening of lumbar lordotic curvature. Lumbar paraspinous muscle shows symmetrical on inspection, on palpation shows some moderate tenderness diffusely, but only diffusely without radiation. The patient's back shows good rotational motion of lumbar spine both laterally as well as extension and flexion without significant difficulty. EXTREMITIES: The patient's lower extremities show deep tendon reflexes at 2+ in the patellar, 1+ tendo-calcaneus tendons. Motor exam is strong with 5/5 dorsiflexion and extension as well as quadriceps and hamstring flexion intact. Peripheral pulses are 1+ posterior tibia. No peripheral edema is noted bilaterally. Options were discussed with the patient. The patient's old chart was reviewed as her current medication regimen updated. Current review of systems updated today as well. We will proceed with a second in the series of lumbar epidural steroid injection today with fluoroscopic guidance. Risks were again discussed including, but not limited to bleeding, infection, possibility of epidural hematoma, subsequent neurologic compromise, dural puncture, headaches, spinal cord and/or nerve damage, side effects of steroid medication and poor results regarding pain control. The patient understands and wished to proceed. The patient will return to clinic in approximately 2 weeks for followup. She was counseled on return appointment, activity level and side effects to be aware of. DIAGNOSIS: Lumbar radiculopathy with lumbar degenerative disk disease and lumbar spinal stenosis. PROCEDURE: Lumbar epidural steroid injection, translaminar approach at the L4-L5 level using C-arm fluoroscopic guidance under sterile prep and drape using local anesthetic. MEDICATION INJECTED: A total of 120 mg Depo-Medrol plus 10 mL of preservative-free normal saline and 2 mL of contrast. CONDITION AT DISCHARGE: Stable. The patient tolerated the procedure well, had no complications. ARLENE MARR MD DR: BOOM/flavia JOB#: [id number] / [id number]
== END ==
LOC: PNCL 07:59
PROVIDERS: ATTEND Anesthesiology
DX: M51.16 Intervertebral disc disorders with radiculopathy, lumbar region (principal); M48.061 Spinal stenosis, lumbar region without neurogenic claudication
CPT/HCPCS: 62323; J1030; J1040; Q9965

== ENCOUNTER → 2019-08-10 | Outpatient (CLI) | payer OTHER ==
[~2019-08-10] MED LIST changes: -IOHEXOL 180 MG/ML 10 ML VIAL. ONE; -methylPREDNISolone ACETATE 40 MG/ML VIAL. ONE; -methylPREDNISolone ACETATE 80 MG/ML VIAL. ONE
--- NOTE | 2019-08-10 16:29 | KCIC ---
AP and Lateral Views of the Chest 08/10/2019 12:00 AM Indication: Cough Comparison: None Findings: Mild reticular opacity is seen in the left lower lobe and to a lesser degree the right lower lobe. This could represent atelectasis or infiltrate. No pneumothorax or pleural effusion is seen. Heart size is normal. No acute osseous changes are seen. IMPRESSION: Bibasilar reticular opacities left greater than right possibly some atelectasis or infiltrate.. Radiographic follow-up to resolution recommended Electronically signed by: Seamus Toussaint MD (08/10/2019 4:26 PM) [facility]
== END | disposition home or self-care (01) ==
LOC: KCIC 14:56
PROVIDERS: ATTEND Family Medicine
DX: R05 Cough (principal)
CPT/HCPCS: 71046

== ENCOUNTER → 2019-08-16 | Outpatient (CLI) | payer OTHER ==
[~2019-08-16] MED LIST changes: +IOHEXOL 180 MG/ML 10 ML VIAL. ONE; +methylPREDNISolone ACETATE 40 MG/ML VIAL. ONE
--- NOTE | 2019-08-16 09:48 | PAIN ---
DATE OF SERVICE: 08/16/2019 PROGRESS NOTE FOR PAIN CLINIC DIAGNOSIS: Lumbar radiculopathy with lumbar degenerative disk disease and lumbar spinal stenosis. HISTORY OF PRESENT ILLNESS: The patient is a 53-year-old female, who returns for followup status post lumbar epidural steroid injection x 2, last seen on 04/13/2019. The patient reports she did very well with about 90% improvement until the last few weeks. She had a bout of pneumonia with an increased cough, which has caused pain in the low back and left lower extremity to recur similar to that what was back in March. The patient reports it is now aching, burning, becoming more constant in the back, sharp pain, shooting pain in the left leg, posterior gluteus, posterolateral thigh, lateral anterior thigh, medial thigh, medial lower leg and lateral lower leg. The patient reports it is a 9 on a scale of 10 at its worst, over the past week 7 on an average, is 0 at its least and is a 7 today. The patient reports no new motor or sensory deficits, no new bowel or bladder incontinence. It does not awaken her from sleep at night, worse with walking, standing and changing positions. PHYSICAL EXAMINATION: VITAL SIGNS: The patient's blood pressure is 108/73, pulse 87, respirations 16, temperature 98.0 degrees Fahrenheit. Height is 5 feet 5 inches, weight is 166 pounds. GENERAL: The patient is awake, alert, oriented, appropriate, very pleasant demeanor. HEENT: Head shows normocephalic, atraumatic. Extraocular movements are intact and symmetrical. Oral cavity: Mucous membranes moist and pink; dentition is intact. NECK: Shows anterior throat supple without palpable lymphadenopathy noted. Swallow reflex symmetrical. CHEST: Shows normal on inspection. Breath sounds clear to auscultation bilaterally. HEART: Shows S1, S2 clear. No murmurs auscultated. ABDOMEN: Soft, nontender and nondistended. BACK: Shows spine grossly in the midline. Normal-appearing thoracic kyphosis and lumbar lordotic curvature. Lumbar paraspinous musculature shows symmetrical on inspection, with palpation shows some moderate tenderness diffusely bilaterally, but only diffusely without radiation in the lower lumbar distribution only. The patient has good rotational motion of the lumbar spine both laterally as well as extension and flexion without significant difficulty. EXTREMITIES: The patient's lower extremities show deep tendon reflexes at 2+ in the patellar and 1+ in the tendo-calcaneus tendons. Motor exam is strong with 5/5 dorsiflexion, extension, quadriceps and hamstring flexion. Peripheral pulses are 1+ posterior tibial. No peripheral edema is noted. Options were discussed with the patient. The patient's old chart was reviewed as her current medication regimen updated. Current review of systems updated today as well. We will proceed with a lumbar epidural steroid injection today with fluoroscopic guidance. Risks were again discussed including, but not limited to bleeding, infection, possibility of epidural hematoma, subsequent neurological compromise, dural puncture, headaches, spinal cord and/or nerve damage, side effects of steroid medication and poor results regarding pain control. The patient understands and wished to proceed. The patient will return to the clinic in approximately 2 weeks for followup, was counseled as to return appointment, activity level and side effects to be aware of. DIAGNOSIS: Lumbar radiculopathy with lumbar degenerative disk disease, lumbar spinal stenosis. PROCEDURE: Lumbar epidural steroid injection, translaminar approach, L4-L5 level, using C-arm fluoroscopic guidance under sterile prep and drape using local anesthetic. MEDICATIONS INJECTED: A total of 120 mg of Depo-Medrol plus 10 mL of preservative-free normal saline and 2 mL of contrast. CONDITION AT DISCHARGE: Stable. The patient tolerated the procedure well, had no complications. ARLENE MARR MD DR: BOOM/flavia JOB#: [id number] / [id number]
== END | disposition home or self-care (01) ==
LOC: PNCL 07:54
PROVIDERS: ATTEND Anesthesiology
DX: M51.16 Intervertebral disc disorders with radiculopathy, lumbar region (principal); M48.061 Spinal stenosis, lumbar region without neurogenic claudication; Z98.890 Other specified postprocedural states; Z91.041 Radiographic dye allergy status; Z91.040 Latex allergy status; Z91.018 Allergy to other foods; Z88.8 Allergy status to other drugs, medicaments and biological substances
CPT/HCPCS: 62323; J1030; Q9965

== ENCOUNTER → 2019-12-26 | Outpatient (CLI) | payer OTHER ==
[~2019-12-26] MED LIST changes: +ACET-2061 PO; -ACET325T16 PO; -IOHEXOL 180 MG/ML 10 ML VIAL. ONE; -methylPREDNISolone ACETATE 40 MG/ML VIAL. ONE
[2019-12-26 08:45] LABS: HEMATOCRIT 40.1 % (36.0-47.0); HEMOGLOBIN 13.9 g/dL (12.0-15.5); RED BLOOD COUNT 4.4 x10^6/uL (3.50-5.40); RED CELL DISTRIBUTION WIDTH 13.1 % (11.5-14.5); WHITE BLOOD COUNT 5.4 x10^3/uL (4.0-11.0)
[2019-12-26 09:05] LABS: ALBUMIN 4.1 g/dL (3.4-5.0); ALBUMIN/GLOBULIN RATIO 1.1 (1.0-1.7); CALCIUM 9.1 mg/dL (8.5-10.1); CREATININE 1.1 mg/dL (0.6-1.0); GFR 51.8; POTASSIUM 3.9 mmol/L (3.5-5.1); TOTAL BILIRUBIN 0.8 mg/dL (0.2-1.0); TOTAL PROTEIN 7.9 g/dL (6.4-8.2)
[2019-12-26 09:07] LABS: CHOLESTEROL/HDL RATIO 2.4
[2019-12-26 09:10] LABS: FREE T4 0.97 ng/dL (0.76-1.46); THYROID STIM HORMONE (TSH) 3.647 uIU/mL (0.358-3.74)
== END ==
LOC: LAB 08:17
PROVIDERS: ATTEND Family Medicine
DX: Z01.419 Encounter for gynecological examination (general) (routine) without abnormal findings (principal); K57.92 Diverticulitis of intestine, part unspecified, without perforation or abscess without bleeding
CPT/HCPCS: 36415; 80053; 80061; 82306; 84439; 84443; 85027

== ENCOUNTER → 2019-12-28 | Outpatient (CLI) | payer OTHER | END | disposition home or self-care (01) | LOC: LAB 14:24 | PROVIDERS: ATTEND Internal Medicine Gastroenterology | DX: Z01.818 Encounter for other preprocedural examination (principal); Z11.59 Encounter for screening for other viral diseases | CPT/HCPCS: C9803-CS; U0003-CS ==

== ENCOUNTER → 2020-01-01 | Day surgery (SDC) | payer OTHER ==
[~2020-01-01] MED LIST changes: +IV RINGERS,LACTATED 1000ML 1,000 ML IV SCH; +PROPOFOL 10 MG/ML (20ML) VIAL. IV ONE
[2020-01-01 10:45] VITALS: BP 113/77
--- NOTE | 2020-01-01 11:30 | PREOP HP ---
DATE OF SERVICE: DATE OF PROCEDURE: 01/01/2020. PRIMARY CARE PHYSICIAN: Alexa Pichardo MD. PRIMARY CARE PHYSICIAN.: Alexa Pichardo MD REASON FOR PROCEDURE: Colorectal cancer screening. HISTORY OF PRESENT ILLNESS: This is a 54-year-old female who presents today for colorectal cancer screening. She recently had an episode of diverticulitis 2 months ago. She has had a prior colonoscopy with Dr. Almodovar that was unrevealing. She admits to daily bowel movement and denies any change in bowels. She also admits to some red blood in her stool, abdominal pain, chest pain and heartburn. ALLERGIES: 1. LATEX. 2. NSAIDs. 3. HYDROCODONE. MEDICATIONS: 1. Multivitamin. 2. Ranitidine hydrochloride. 3. Super enzyme. 4. Turmeric. 5. Flomax. 6. Slow release iron. 7. Biotin. 8. Flonase. 9. She has been prescribed atorvastatin but she has not started it yet. PAST SURGICAL HISTORY: . PAST MEDICAL HISTORY: 1. Reflux. 2. Diverticulitis. 3. Hemorrhoids. 4. Hiatal hernia. 5. Hypercholesterolemia. 6. Arthritis. FAMILY MEDICAL HISTORY: No colorectal cancer. There is breast cancer, diabetes in her mother. Her father had esophageal stomach cancer. Grandmother had diabetes and grandfather also had stomach and esophageal cancer. REVIEW OF SYSTEMS: A 13-point review of systems was done. It is positive for leg cramps and chest pain as well as snoring, urine leakage, back pain, joint stiffness, joint pain, hot flashes, weakness in her extremities, numbness and otherwise as per HPI. PHYSICAL EXAMINATION: VITAL SIGNS: She is afebrile. Vital signs are stable. GENERAL: She is a well-developed, well-nourished female, in no apparent distress. HEENT: Oropharynx is clear. CARDIOVASCULAR: S1, S2. LUNGS: Clear. ABDOMEN: Normoactive bowel sounds, soft, nontender, nondistended. EXTREMITIES: No edema. NEUROLOGIC: Awake, alert, oriented x 3. ASSESSMENT AND PLAN: 1. Colorectal cancer screening. The risks and benefits of the procedure including bleeding, perforation, non-diagnosis and sedation were explained and she has agreed to proceed. 2. History of diverticulitis. We will follow up with her exam today. Thank you for allowing me to participate in the care of this patient. SOFÍA YE MD DR: YASMEEN/flavia JOB#: [id number] / [id number]
--- NOTE | 2020-01-03 17:06 | PATHOLOGY ---
[facility] Accession Number: [id number] . 01 Material submitted: . sigmoid colon - SIGMOID POLYP BX . 01 Clinical history: . F/u diverticulitis . 02 Diagnosis: Colon biopsy, sigmoid polyp: - Hyperplastic polyp. (JPM:visiting housekeeper/natalya; 01/02/2020) MBR 01/03/2020 0845 Local . 02 Comment: Sections of the sigmoid colon biopsy reveal a hyperplastic polyp showing coagulation artifact. There are no adenomatous changes or evidence of malignancy. (JPM:natalya; 01/03/2020) . 02 Electronically signed: . Rusty Ramirez MD, Pathologist NPI- [id number] . 01 Gross description: . The specimen is received in formalin, labeled "Deysi Salas, sigmoid polyp BX" and consists of multiple fragments of fields tissue measuring 0.3 x 0.2 x 0.1 cm in aggregate which are entirely submitted in A1. ([facility]; 01/01/2020) JFQ/JFQ 01/01/2020 1910 Local . 02 Pathologist provided ICD-10: K63.5 . 02 CPT . 590806 Specimen Comment: A courtesy copy of this report has been sent to [phone], [phone] Specimen Comment: [id number] Specimen Comment: Report sent to / DR AQUINO Specimen Comment: Report sent to Performed at: 01 [facility] [address] [facility] [address], [place] [id number] MD Abdelrahman Simpson MD Phone: [phone] Performed at: 02 [facility] [address] [place], [place] [id number] MD Rusty Ramirez MD Phone: [phone]
== END ==
LOC: ENDOS 08:56
PROVIDERS: ATTEND Internal Medicine Gastroenterology
DX: Z12.11 Encounter for screening for malignant neoplasm of colon (principal); K63.5 Polyp of colon; K57.30 Diverticulosis of large intestine without perforation or abscess without bleeding; K64.0 First degree hemorrhoids; K44.9 Diaphragmatic hernia without obstruction or gangrene; K21.9 Gastro-esophageal reflux disease without esophagitis; Z88.5 Allergy status to narcotic agent; Z88.1 Allergy status to other antibiotic agents; Z91.040 Latex allergy status; Z87.39 Personal history of other diseases of the musculoskeletal system and connective tissue
CPT/HCPCS: 45380; 88305; J2704

== ENCOUNTER → 2020-01-09 | Outpatient (CLI) | payer OTHER ==
[2020-01-01 10:45] VITALS: BP 113/77
[~2020-01-09] MED LIST changes: -IV RINGERS,LACTATED 1000ML 1,000 ML IV SCH; -PROPOFOL 10 MG/ML (20ML) VIAL. IV ONE
--- NOTE | 2020-01-10 11:27 | RAD ---
DATE: 01/09/2020 2:19 PM EXAM: MAMMO MÓNICA SCREENING BILATERAL HISTORY: Screening COMPARISON: 11/24/2018 and 09/15/2017 Bilateral CC and MLO views of the breasts were performed. Bilateral breast tomosynthesis was performed in CC and MLO projections. This study was interpreted with the benefit of Computerized Aided Detection (CAD). FINDINGS: Breast Density: HETERO The breast parenchyma Is heterogeneously dense, which could reduce sensitivity of mammography. Breast parenchyma level C No suspicious masses, microcalcifications or architectural distortion is present to suggest malignancy in either breast. The visualized axillae are unremarkable. IMPRESSION: No mammographic evidence of malignancy. BI-RADS CATEGORY: 1 NEGATIVE RECOMMENDED FOLLOW-UP: 12M 12 MONTH FOLLOW-UP Annual screening mammography is recommended, unless clinically indicated sooner based on symptoms or change in physical exam. PQRS compliance statement: Patient information was entered into a reminder system with a target due date 01/09/2021 for the next mammogram. Mammography is a sensitive method for finding small breast cancers, but it does not detect them all and is not a substitute for careful clinical examination. A negative mammogram does not negate a clinically suspicious finding and should not result in delay in biopsying a clinically suspicious abnormality. "Our facility is accredited by the [employer] Mammography Program."
== END | disposition home or self-care (01) ==
LOC: MAMMO 14:45
PROVIDERS: ATTEND Family Medicine
DX: Z12.31 Encounter for screening mammogram for malignant neoplasm of breast (principal)
CPT/HCPCS: 77063; 77067

== ENCOUNTER → 2020-06-27 | Outpatient (CLI) | payer OTHER ==
[2020-01-01 10:45] VITALS: BP 113/77
[~2020-06-27] MED LIST changes: -CLIN300C8 PO; +CLIN300C9 PO
[2020-06-27 09:50] LABS: ALBUMIN 4.2 g/dL (3.4-5.0); ALBUMIN/GLOBULIN RATIO 1.2 (1.0-1.7); ALK PHOS 77 U/L (46-116); ALT (SGPT) 38 U/L (14-59); ANION GAP 10 (6-14); AST (SGOT) 17 U/L (15-37); BLOOD UREA NITROGEN 14 mg/dL (7-20); BUN/CREATININE RATIO 20 (6-20); CALCIUM 9.3 mg/dL (8.5-10.1); CARBON DIOXIDE 27 mmol/L (21-32); CHLORIDE 104 mmol/L (98-107); CHOLESTEROL 163 mg/dL (0-200); CREATININE 0.7 mg/dL (0.6-1.0); GFR 87.2; GLUCOSE 97 mg/dL (70-99); HDLC 101 mg/dL (40-60); LDLC 54 mg/dL (0-100); POTASSIUM 4.4 mmol/L (3.5-5.1); SODIUM 141 mmol/L (136-145); TOTAL BILIRUBIN 0.7 mg/dL (0.2-1.0); TOTAL PROTEIN 7.6 g/dL (6.4-8.2); TRIGLYCERIDES 41 mg/dL (0-150); VLDLC 8 mg/dL (0-40)
[2020-06-27 09:52] LABS: C-REACTIVE PROTEIN < 0.5 mg/L (0-3.3); CHOLESTEROL/HDL RATIO 1.6
[2020-06-27 19:40] LABS: RHEUMATOID FACTOR <10.0 IU/mL (0.0-13.9)
[2020-06-28 19:09] LABS: ANA INTERP Negative (.)
== END ==
LOC: LAB 08:51
PROVIDERS: ATTEND Family Medicine
DX: E78.5 Hyperlipidemia, unspecified (principal); M25.50 Pain in unspecified joint
CPT/HCPCS: 36415; 80053; 80061; 86038; 86140; 86431

== ENCOUNTER 2020-09-20 14:03 | Inpatient (IN) | payer OTHER ==
[~2020-09-20] VITALS: Ht 165.1 cm; Wt 75.0 kg
[2020-09-20] MEDS ORDERED: MECLIZINE HCL 12.5 MG TABLET. PO ONE (14:45)
[2020-09-20 14:48] LABS: BASO # 0.1 x10^3/uL (0.0-0.2); BASO % 1 % (0-3); EOS # 0.2 x10^3/uL (0.0-0.7); EOS % 3 % (0-3); HEMATOCRIT 39.3 % (36.0-47.0); LYMPH # 1.8 x10^3/uL (1.0-4.8); LYMPH % 27 % (24-48); MEAN CORPUSCULAR HEMOGLOBIN 31 pg (25-35); MEAN CORPUSCULAR HGB CONC 33 g/dL (31-37); MEAN CORPUSCULAR VOLUME 94 fL (79-100); MONO # 0.6 x10^3/uL (0.0-1.1); MONO % 9 % (0-9); NEUT % 60 % (31-73); PLATELET COUNT 269 x10^3/uL (140-400); RED CELL DISTRIBUTION WIDTH 12.8 % (11.5-14.5); WHITE BLOOD COUNT 6.7 x10^3/uL (4.0-11.0)
--- NOTE | 2020-09-20 14:59 | EKG ---
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
[2020-09-20 15:01] LABS: CALCIUM 8.6 mg/dL (8.5-10.1); CREATININE 0.9 mg/dL (0.6-1.0); GFR 65.2; POTASSIUM 3.8 mmol/L (3.5-5.1)
[2020-09-20 15:11] LABS: ALBUMIN 3.9 g/dL (3.4-5.0); ALBUMIN/GLOBULIN RATIO 1.1 (1.0-1.7); MAGNESIUM 2.2 mg/dL (1.8-2.4); TOTAL BILIRUBIN 0.4 mg/dL (0.2-1.0); TOTAL PROTEIN 7.3 g/dL (6.4-8.2)
[2020-09-20 15:22] LABS: BILIRUBIN,URINE NEGATIVE (NEG); CLARITY,URINE CLEAR; COLOR,URINE YELLOW; NITRITE,URINE NEGATIVE (NEG); PROTEIN,URINE NEGATIVE (NEG-TRACE); UROBILINOGEN,URINE 0.2 mg/dL (0.2 mg/dL)
[2020-09-20 15:29] LABS: BACTERIA,URINE 0 /HPF (0-FEW); RBC,URINE OCC /HPF (0-2); WBC,URINE 0 /HPF (0-4)
--- NOTE | 2020-09-20 15:32 | RAD ---
CT HEAD WITHOUT CONTRAST 09/20/2020 2:56 PM Indication: Reason: near syncope, dizzy / Spl. Instructions: / History: Comparison: None available Procedure: Multidetector CT imaging of the head was performed without the administration of contrast. Findings: There is no evidence of acute intracranial hemorrhage. There is no evidence of acute territ orial infarction. Please note that CT is limited for evaluation of acute ischemia. No mass effect or midline shift is identified . The ventricles and basilar cisterns have an appropriate appearance. No abnormal extra-axial fluid collections are seen. No acute osseous changes are identified. Impression: No evidence of acute intracranial abnormality CT DOSING PQRS STATEMENT: One or more of the following individualized dose reduction techniques were utilized for this examinat ion: 1. Automated exposure control 2. Adjustment of the mA and/or kV according to patient size 3. Use of iterative reconstruction technique Electronically signed by: Seamus Toussaint MD (09/20/2020 3:29 PM) [id number]
--- NOTE | 2020-09-20 16:21 | ED.ADGEN ---
Past Medical History Past Medical History: Diverticulosis, Hypotension, Sciatica Additional Past Medical Histor: Vertigo Past Surgical History: , Other Additional Past Surgical Histo: carpal tunnel, abscess removed, biopsy on face Smoking Status: Never Smoker Alcohol Use: None Drug Use: None General Adult EDM: Chief Complaint: DIZZY/LIGHT HEADED HPI: HPI: Patient is a 54 year old female who presents to the emergency department with complaints of difficulty hearing out of her right ear since awakening this morning and having a numb sensation to her right ear that began earlier today. Patient reports since noon she began to have lightheadedness and felt as if she is going to pass out when she stood up after eating lunch. Patient reports that with the onset of the dizziness she felt she should come to the emergency room for evaluation. Patient denies any headache, vision changes, paresthesia of extremities, nausea, vomiting, diarrhea, chest pain, fever, cough, dysphagia, shortness of breath, or body aches. She reports a history of vertigo but states that this sensation feels different than her previous vertigo episodes. Initi ally the patient denied any difficulty with speech, however, she later reports that with the onset of the dizziness initially she felt like her speech was a bit slurred. She currently denies any pain. Review of Systems: Review of Systems: Complete ROS is negative unless otherwise noted in HPI. Current Medications: Current Medications Medications (Trade) Dose Ordered Sig/[facility] Start Time Stop Time Status Last Admin Dose Admin Meclizine HCl (Antivert) 25 mg 1X ONCE 09/20/20 14:45 09/20/20 14:46 DC 09/20/20 14:52 25 MG Allergies: Allergies: Allergies Coded Allergies Type Severity Reaction Last Updated Verified banana Allergy Severe SWELLING 01/01/20 Yes walnut Allergy Severe 01/01/20 Yes [place] And Derivatives Allergy Intermediate Itching 01/01/20 Yes latex Allergy Intermediate Itching 01/01/20 Yes I S O L A T I O N *CONTACT* Allergy Unknown 01/01/20 Yes NSAIDS (Non-Steroidal Anti-Inflamma Adverse Reaction Mild Nausea and Vomiting 01/01/20 Yes Physical Exam: PE: See Above Constitutional: Well developed, well nourished, no acute distress, non-toxic appearance. [] HENT: Normocephalic, atraumatic, bilateral external ears normal, bilateral TMs normal, posterior pharynx normal, oropharynx moist, no oral exudates, nose normal, no mastoid tenderness to palpation or erythema. [] Eyes: PERRLA, EOMI, conjunctiva normal, no discharge, no nystagmus. [] Neck: Normal range of motion, no tenderness, supple, no stridor. [] Cardiovascular:Heart rate regular rhythm Lungs & Thorax: Respirations even and unlabored, no retractions, no respiratory distress Abdomen: soft, no tenderness, no masses, no pulsatile masses. [] Skin: Warm, dry, no erythema, no rash. [] Back: No tenderness, no CVA tenderness. [] Extremities: No tenderness, no cyanosis, no clubbing, ROM intact, no edema. [] Neurologic: Alert and oriented X 3, normal motor function, no focal deficits noted; paresthesias reported to right side of face and right ear [] Psychologic: Affect normal, judgement normal, mood anxious Current Patient Data: Labs: Laboratory Tests Test 09/20/20 14:37 09/20/20 15:13 White Blood Count 6.7 x10^3/uL (4.0-11.0) Red Blood Count 4.20 x10^6/uL (3.50-5.40) Hemoglobin 13.0 g/dL (12.0-15.5) Hematocrit 39.3 % (36.0-47.0) Mean Corpuscular Volume 94 fL (79-100) Mean Corpuscular Hemoglobin 31 pg (25-35) Mean Corpuscular Hemoglobin Concent 33 g/dL (31-37) Red Cell Distribution Width 12.8 % (11.5-14.5) Platelet Count 269 x10^3/uL (140-400) Neutrophils (%) (Auto) 60 % (31-73) Lymphocytes (%) (Auto) 27 % (24-48) Monocytes (%) (Auto) 9 % (0-9) Eosinophils (%) (Auto) 3 % (0-3) Basophils (%) (Auto) 1 % (0-3) Neutrophils # (Auto) 4.0 x10^3/uL (1.8-7.7) Lymphocytes # (Auto) 1.8 x10^3/uL (1.0-4.8) Monocytes # (Auto) 0.6 x10^3/uL (0.0-1.1) Eosinophils # (Auto) 0.2 x10^3/uL (0.0-0.7) Basophils # (Auto) 0.1 x10^3/uL (0.0-0.2) Sodium Level 140 mmol/L (136-145) Potassium Level 3.8 mmol/L (3.5-5.1) Chloride Level 104 mmol/L (98-107) Carbon Dioxide Level 27 mmol/L (21-32) Anion Gap 9 (6-14) Blood Urea Nitrogen 20 mg/dL (7-20) Creatinine 0.9 mg/dL (0.6-1.0) Estimated GFR (Cockcroft-Gault) 65.2 BUN/Creatinine Ratio 22 (6-20) H Glucose Level 147 mg/dL (70-99) H Calcium Level 8.6 mg/dL (8.5-10.1) Magnesium Level 2.2 mg/dL (1.8-2.4) Total Bilirubin 0.4 mg/dL (0.2-1.0) Aspartate Amino Transferase (AST) 18 U/L (15-37) Alanine Aminotransferase (ALT) 43 U/L (14-59) Alkaline Phosphatase 72 U/L (46-116) Creatine Kinase 85 U/L (26-192) Creatine Kinase MB (Mass) 0.9 ng/mL (0.0-3.6) Creatine Kinase MB Relative Index 1.1 % (0-4) Troponin I Quantitative < 0.017 ng/mL (0.000-0.055) Total Protein 7.3 g/dL (6.4-8.2) Albumin 3.9 g/dL (3.4-5.0) Albumin/Globulin Ratio 1.1 (1.0-1.7) Urine Collection Type Unknown Urine Color Yellow Urine Clarity Clear Urine pH 6.0 (<5.0-8.0) Urine Specific [place] 1.020 (1.000-1.030) Urine Protein Negative mg/dL (NEG-TRACE) Urine Glucose (UA) Negative mg/dL (NEG) Urine Ketones (Stick) Negative mg/dL (NEG) Urine Blood Negative (NEG) Urine Nitrite Negative (NEG) Urine Bilirubin Negative (NEG) Urine Urobilinogen Dipstick 0.2 mg/dL (0.2 mg/dL) Urine Leukocyte Esterase Negative (NEG) Urine RBC Occ /HPF (0-2) Urine WBC 0 /HPF (0-4) Urine Squamous Epithelial Cells Few /LPF Urine Bacteria 0 /HPF (0-FEW) Urine Mucus Slight /LPF Laboratory Tests 09/20/20 14:37 Laboratory Tests 09/20/20 14:37 Vital Signs: Vital Signs Date Time Temp Pulse Resp B/P (MAP) Pulse Ox O2 Delivery O2 Flow Rate FiO2 09/20/20 15:45 64 18 166/78 (107) 98 Room Air 09/20/20 14:18 97.5 97.5 EKG: EK-sinus rhythm rate 60, no STEMI, read by Dr. Wayne [] Heart Score: C/O Chest Pain: No Risk Factors: Risk Factors: DM, Current or recent (<one month) smoker, HTN, HLP, family history of CAD, obesity. Risk Scores: Score 0 - 3: 2.5% MACE over next 6 weeks - Discharge Home Score 4 - 6: 20.3% MACE over next 6 weeks - Admit for Clinical Observation Score 7 - 10: 72.7% MACE over next 6 weeks - Early Invasive Strategies Radiology/Procedures: Radiology/Procedures: PROCEDURE: CT HEAD WO CONTRAST CT HEAD WITHOUT CONTRAST 09/20/2020 2:56 PM Indication: Reason: near syncope, dizzy / Spl. Instructions: / History: Comparison: None available Procedure: Multidetector CT imaging of the head was performed without the administration of contrast. Findings: There is no evidence of acute intracranial hemorrhage. There is no evidence of acute territorial infarction. Please note that CT is limited for evaluation of acute ischemia. No mass effect or midline shift is identified . The ventricles and basilar cisterns have an appropriate appearance. No abnormal extra-axial fluid collections are seen. No acute osseous changes are identified. Impression: No evidence of acute intracranial abnormality PROCEDURE: CT ANGIOGRAPHY HEAD AND NECK PQRS Compliance Statement: One or more of the following individualized dose reduction techniques were utilized for this examination: 1. Automated exposure control 2. Adjustment of the mA and/or kV according to patient size 3. Use of iterative reconstruction technique CTA HEAD AND NECK W/WO CONTRAST Clinical Indication: Reason: R side facial numbness, decreased hearing R ear / This CTA was performed in a separate imaging session from the head CT performed earlier. Comparison: CT head, earlier same day. Technique: Helical CT imaging from inferior to the aortic arch to the skull vertex is performed after 75 cc of Omnipaque [address] angiogram protocol. 3-D MIP reconstructions of the cervical carotid arteries and [place] of [place] are performed. PQRS Compliance Statement - Stenosis calculations for CT, MR and conventional angiography are based upon measurement of the distal ICA diameter in accordance with the NASCET methodology. Stenosis calculations for carotid ultrasound studies are derived from validated velocity criteria which are known to correlate with the NASCET methodology. Findings: Aortic arch branches are patent. Common carotid arteries, carotid bifurcations, and cervical internal carotid arteries are patent. The cervical vertebral arteries are patent. No evidence of dissection. Right vertebral artery ends in PICA. The basilar artery is small caliber. There is persistent origin of the bilateral posterior cerebral arteries. The arteries are patent. There are small caliber P1 segments bilaterally. The distal internal carotid arteries are patent. The anterior circulation is intact. No intracranial stenosis or aneurysm is identified. The dural venous sinuses are patent. There is no abnormal enhancement in the brain parenchyma. There is no cervical adenopathy. The upper lungs are clear. There is minimal grade 1 anterolisthesis of C2 on C3 and C3 on C4. There is disc space narrowing and degenerative endplate spurring of C4/C5, C5/C6, and C6/C7. IMPRESSION: 1. No intracranial large vessel occlusion. 2. Normal CTA neck. [] Course & Med Decision Making: Course & Med Decision Making Pertinent Labs and Imaging studies reviewed. (See chart for details) [id number] spoke with the neurologist on-call Dr. Tran who recommends that the patient have CTA head and neck as well as MRI MRA of her brain to rule out a CVA will order these additional test as requested. [id number] with Dr. Kelly who is the admitting physician, and care was assumed following discussion of patient. Will admit patient for right-sided facial paresthesias and rule out stroke Patient's vital signs stable. Patient remains afebrile, appears nontoxic, respirations even and unlabored. Patient will be admitted to the telemetry floor. Patient's case and plan of care also discussed with Dr. Tone Julio Disclaimer: Nori Disclaimer: This electronic medical record was generated, in whole or in part, using a voice recognition dictation system. Departure Departure Impression: Primary Impression: Facial paresthesia Disposition: ADMITTED INPT THIS HOSP Admitting Physician: TANJA (Robin) Condition: STABLE Referrals: MARILEE AQUINO MD (PCP) VIOLET MADRIGAL APRN Sep 20, 2020 16:21
[2020-09-20] MEDS ORDERED: IOHEXOL 350 MG/ML 100 ML VIAL. IV ONE (17:15)
[2020-09-20] MEDS ORDERED: CONTRAST GIVEN. MC PRN (17:15)
[2020-09-20] MEDS ORDERED: ASPIRIN 325 MG TABLET PO ONE (17:30)
--- NOTE | 2020-09-20 17:46 | RAD ---
PQRS Compliance Statement: One or more of the following individualized dose reduction techniques were utilized for this examinat ion: 1. Automated exposure control 2. Adjustment of the mA and/or kV according to patient size 3. Use of iterative reconstruction technique CTA HEAD AND NECK W/WO CONTRAST Clinical Indication: Reason: R side facial numbness, decreased hearing R ear / This CTA was performe d in a separate imaging session from the head CT performed earlier. Comparison: CT head, earlier same day. Technique: Helical CT imaging from inferior to the aortic arch to the skull vertex is performed after 75 cc of Omnipaque [address] angiogram protocol. 3-D MIP reconstructions of the cervi clarissa carotid arteries and [place] of [place] are performed. PQRS Compliance Statement - Stenosis calculations for CT, MR and conventional angiography are based u lee measurement of the distal ICA diameter in accordance with the NASCET methodology. Stenosis calcu lations for carotid ultrasound studies are derived from validated velocity criteria which are known t o correlate with the NASCET methodology. Findings: Aortic arch branches are patent. Common carotid arteries, carotid bifurcations, and cervical internal carotid arteries are patent. The cervical vertebral arteries are patent. No evidence of dissection. Right vertebral artery ends in PICA. The basilar artery is small caliber. There is persistent o rigin of the bilateral posterior cerebral arteries. The arteries are patent. There are small caliber P1 segments bilaterally. The distal internal carotid arteries are patent. The anterior circulation is intact. No intracranial stenosis or aneurysm is identified. The dural venous sinuses are patent. There is no abnormal enhancement in the brain parenchyma. There is no cervical adenopathy. The upper lungs are clear. There is minimal grade 1 anterolisthesis of C2 on C3 and C3 on C4. There is disc space narrowing and degenerative endplate spurring of C4/C5, C5/C6, and C6/C7. IMPRESSION: 1. No intracranial large vessel occlusion. 2. Normal CTA neck. Electronically signed by: Yaw Mcclellan MD (09/20/2020 5:43 PM) [facility]
--- NOTE | 2020-09-20 18:17 | PDOC1 ---
History and Physical Date of Admission Date of Admission DATE: 09/20/20 TIME: 18:07 Identification/Chief Complaint Chief Complaint dizzy, weak, hearing loss, Source Source: Chart review History of Present Illness History of Present Illness Deysi works here in [employer] office. This AM, she had trouble hearing out of her right ear, no pain, no fullness, only unable to hear well. Then at noon, she had new dizzyness, weakness and felt lightheaded and had near syncope. She didn't feel well, but was able to walk herself slowly and unsteadily over to the ER. She was there given Meclizine, which stopped the dizzyness, but now she has numbness to the right ear and right side of her face, no pain. Never any pain. Only felt weak due to being unsteady, and no difference right to left. Past Medical History Cardiovascular: No pertinent hx Pulmonary: Other GI: GERD Heme/Onc: No pertinent hx Hepatobiliary: No pertinent hx Psych: No pertinent hx Rheumatologic: No pertinent hx Infectious disease: No pertinent hx Renal/: No pertinent hx Endocrine: No pertinent hx Past Surgical History Past Surgical History: , Other Family History Family History: Cancer, Diabetes, Other Social History Smoke: No ALCOHOL: none Drugs: None Current Medications Current Medications Current Medications Meclizine HCl (Antivert) 25 mg 1X ONCE PO Last administered on 09/20/20at 14:52; Start 09/20/20 at 14:45; Stop 09/20/20 at 14:46; Status DC Iohexol (Omnipaque 350 Mg/ml) 75 ml 1X ONCE IV Last administered on 09/20/20at 17:18; Start 09/20/20 at 17:15; Stop 09/20/20 at 17:16; Status DC Info (CONTRAST GIVEN -- Rx MONITORING) 1 each PRN DAILY PRN MC SEE COMMENTS; Start 09/20/20 at 17:15; Stop 09/22/20 at 17:14 Aspirin (Elizabeth Aspirin) 325 mg 1X ONCE PO ; Start 09/20/20 at 17:30; Stop 09/20/20 at 17:32; Status DC Active Scripts Active Allergies Allergies: Coded Allergies: banana (Verified Allergy, Severe, SWELLING, 01/01/20) walnut (Verified Allergy, Severe, 01/01/20) [place] And Derivatives (Verified Allergy, Intermediate, Itching, 01/01/20) latex (Verified Allergy, Intermediate, Itching, 01/01/20) I S O L A T I O N *CONTACT* (Verified Allergy, Unknown, 01/01/20) mrsa NSAIDS (Non-Steroidal Anti-Inflamma (Verified Adverse Reaction, Mild, Nausea and Vomiting, 01/01/20) ROS General: No: Chills, Night Sweats, Fatigue, Malaise, Appetite, Other PSYCHOLOGICAL ROS: No: Anxiety, Behavioral Disorder, Concentration difficultie, Decreased libido, Depression, Disorientation, Hallucinations, Hostility, Irritablity, Memory difficulties, Mood Swings, Obsessive thoughts, Physical abuse, Sexual abuse, Sleep disturbances, Suicidal ideation, Other Eyes: No Blurry vision, No Decreased vision, No Double vision, No Dry eyes, No Excessive tearing, No Eye Pain, No Itchy Eyes, No Loss of vision, No Photophobia, No Scotomata, No Uses contacts, No Uses glasses, No Other HEENT: No: Heacaches, Visual Changes, Hearing change, Nasal congestion, Nasal discharge, Oral lesions, Sinus pain, Sore Throat, Epistaxis, Sneezing, Snoring, Tinnitus, Vertigo, Vocal changes, Other ENDOCRINE: No: Breast Changes, Galactorrhea, Hair Pattern Changes, Hot Flashes, Malaise/lethargy, Mood Swings, Palpitations, Polydipsia/polyuria, Skin Changes, Temperature Intolerance, Unexpected Weight Changes, Other Respiratory: No: Cough, Hemoptysis, Orthopnea, Pleuritic Pain, Shortness of breath, SOB with excertion, Sputum Changes, Stridor, Tachypnea, Wheezing, Other Cardiovascular: No Chest Pain, No Palpitations, No Orthopnea, No Paroxysmal N oc. Dyspnea, No Edema, No Lt Headedness, No Other Gastrointestinal: No Nausea, No Vomiting, No Abdominal Pain, No Diarrhea, No Constipation, No Melena, No Hematochezia, No Other Genitourinary: No Dysuria, No Frequency, No Incontinence, No Hematuria, No Retention, No Discharge, No Urgency, No Pain, No Flank Pain, No Other, No , No , No , No , No , No , No Musculoskeletal: No Gait Disturbance, No Joint Pain, No Joint Stiffness, No Joint Swelling, No Muscle Pain, No Muscular Weakness, No Pain In:, No Swelling In:, No Other Neurological: No Behavorial Changes, No Bowel/Bladder ControlChng, No Confusion, No Dizziness, No Gait Disturbance, No Headaches, No Impaired Coord/balance, No Memory Loss, No Numbness/Tingling, No Seizures, No Speech Problems, No Tremors, No Visual Changes, No Weakness, No Other Skin: No Dry Skin, No Eczema, No Hair Changes, No Lumps, No Mole Changes, No Mottling, No Nail Changes, No Pruritus, No Rash, No Skin Lesion Changes, No Other, No Acne Physical Exam General: Alert, Oriented X3, Cooperative, No acute distress HEENT: Atraumatic, PERRLA, EOMI, Other (right TM clear, no cerumen, no pain to palpation side of head or sabianist) Lungs: Clear to auscultation, Normal air movement Heart: no gallops, no murmurs Abdomen: Normal bowel sounds, Soft Rectal Exam: not examined Extremities: No edema Skin: No rashes, No significant lesion Neuro: Normal speech, Strength at 5/5 X4 ext, Normal tone, Sensation intact, Cranial nerves 3-12 NL, Reflexes 2+ (more brisk patellar reflex on right, 3+) Psych/Mental Status: Mood NL Vitals Vitals Vital Signs Date Time Temp Pulse Resp B/P (MAP) Pulse Ox O2 Delivery O2 Flow Rate FiO2 09/20/20 15:45 64 18 166/78 (107) 98 Room Air 09/20/20 14:18 97.5 97.5 Labs Labs Laboratory Tests Test 09/20/20 14:37 09/20/20 15:13 White Blood Count 6.7 x10^3/uL (4.0-11.0) Red Blood Count 4.20 x10^6/uL (3.50-5.40) Hemoglobin 13.0 g/dL (12.0-15.5) Hematocrit 39.3 % (36.0-47.0) Mean Corpuscular Volume 94 fL (79-100) Mean Corpuscular Hemoglobin 31 pg (25-35) Mean Corpuscular Hemoglobin Concent 33 g/dL (31-37) Red Cell Distribution Width 12.8 % (11.5-14.5) Platelet Count 269 x10^3/uL (140-400) Neutrophils (%) (Auto) 60 % (31-73) Lymphocytes (%) (Auto) 27 % (24-48) Monocytes (%) (Auto) 9 % (0-9) Eosinophils (%) (Auto) 3 % (0-3) Basophils (%) (Auto) 1 % (0-3) Neutrophils # (Auto) 4.0 x10^3/uL (1.8-7.7) Lymphocytes # (Auto) 1.8 x10^3/uL (1.0-4.8) Monocytes # (Auto) 0.6 x10^3/uL (0.0-1.1) Eosinophils # (Auto) 0.2 x10^3/uL (0.0-0.7) Basophils # (Auto) 0.1 x10^3/uL (0.0-0.2) Sodium Level 140 mmol/L (136-145) Potassium Level 3.8 mmol/L (3.5-5.1) Chloride Level 104 mmol/L (98-107) Carbon Dioxide Level 27 mmol/L (21-32) Anion Gap 9 (6-14) Blood Urea Nitrogen 20 mg/dL (7-20) Creatinine 0.9 mg/dL (0.6-1.0) Estimated GFR (Cockcroft-Gault) 65.2 BUN/Creatinine Ratio 22 (6-20) Glucose Level 147 mg/dL (70-99) Calcium Level 8.6 mg/dL (8.5-10.1) Magnesium Level 2.2 mg/dL (1.8-2.4) Total Bilirubin 0.4 mg/dL (0.2-1.0) Aspartate Amino Transf (AST/SGOT) 18 U/L (15-37) Alanine Aminotransferase (ALT/SGPT) 43 U/L (14-59) Alkaline Phosphatase 72 U/L (46-116) Creatine Kinase 85 U/L (26-192) Creatine Kinase MB (Mass) 0.9 ng/mL (0.0-3.6) Creatine Kinase MB Relative Index 1.1 % (0-4) Troponin I Quantitative < 0.017 ng/mL (0.000-0.055) Total Protein 7.3 g/dL (6.4-8.2) Albumin 3.9 g/dL (3.4-5.0) Albumin/Globulin Ratio 1.1 (1.0-1.7) Urine Collection Type Unknown Urine Color Yellow Urine Clarity Clear Urine pH 6.0 (<5.0-8.0) Urine Specific [place] 1.020 (1.000-1.030) Urine Protein Negative mg/dL (NEG-TRACE) Urine Glucose (UA) Negative mg/dL (NEG) Urine Ketones (Stick) Negative mg/dL (NEG) Urine Blood Negative (NEG) Urine Nitrite Negative (NEG) Urine Bilirubin Negative (NEG) Urine Urobilinogen Dipstick 0.2 mg/dL (0.2 mg/dL) Urine Leukocyte Esterase Negative (NEG) Urine RBC Occ /HPF (0-2) Urine WBC 0 /HPF (0-4) Urine Squamous Epithelial Cells Few /LPF Urine Bacteria 0 /HPF (0-FEW) Urine Mucus Slight /LPF Laboratory Tests Test 09/20/20 14:37 09/20/20 15:13 White Blood Count 6.7 x10^3/uL (4.0-11.0) Red Blood Count 4.20 x10^6/uL (3.50-5.40) Hemoglobin 13.0 g/dL (12.0-15.5) Hematocrit 39.3 % (36.0-47.0) Mean Corpuscular Volume 94 fL (79-100) Mean Corpuscular Hemoglobin 31 pg (25-35) Mean Corpuscular Hemoglobin Concent 33 g/dL (31-37) Red Cell Distribution Width 12.8 % (11.5-14.5) Platelet Count 269 x10^3/uL (140-400) Neutrophils (%) (Auto) 60 % (31-73) Lymphocytes (%) (Auto) 27 % (24-48) Monocytes (%) (Auto) 9 % (0-9) Eosinophils (%) (Auto) 3 % (0-3) Basophils (%) (Auto) 1 % (0-3) Neutrophils # (Auto) 4.0 x10^3/uL (1.8-7.7) Lymphocytes # (Auto) 1.8 x10^3/uL (1.0-4.8) Monocytes # (Auto) 0.6 x10^3/uL (0.0-1.1) Eosinophils # (Auto) 0.2 x10^3/uL (0.0-0.7) Basophils # (Auto) 0.1 x10^3/uL (0.0-0.2) Sodium Level 140 mmol/L (136-145) Potassium Level 3.8 mmol/L (3.5-5.1) Chloride Level 104 mmol/L (98-107) Carbon Dioxide Level 27 mmol/L (21-32) Anion Gap 9 (6-14) Blood Urea Nitrogen 20 mg/dL (7-20) Creatinine 0.9 mg/dL (0.6-1.0) Estimated GFR (Cockcroft-Gault) 65.2 BUN/Creatinine Ratio 22 (6-20) Glucose Level 147 mg/dL (70-99) Calcium Level 8.6 mg/dL (8.5-10.1) Magnesium Level 2.2 mg/dL (1.8-2.4) Total Bilirubin 0.4 mg/dL (0.2-1.0) Aspartate Amino Transf (AST/SGOT) 18 U/L (15-37) Alanine Aminotransferase (ALT/SGPT) 43 U/L (14-59) Alkaline Phosphatase 72 U/L (46-116) Creatine Kinase 85 U/L (26-192) Creatine Kinase MB (Mass) 0.9 ng/mL (0.0-3.6) Creatine Kinase MB Relative Index 1.1 % (0-4) Troponin I Quantitative < 0.017 ng/mL (0.000-0.055) Total Protein 7.3 g/dL (6.4-8.2) Albumin 3.9 g/dL (3.4-5.0) Albumin/Globulin Ratio 1.1 (1.0-1.7) Urine Collection Type Unknown Urine Color Yellow Urine Clarity Clear Urine pH 6.0 (<5.0-8.0) Urine Specific [place] 1.020 (1.000-1.030) Urine Protein Negative mg/dL (NEG-TRACE) Urine Glucose (UA) Negative mg/dL (NEG) Urine Ketones (Stick) Negative mg/dL (NEG) Urine Blood Negative (NEG) Urine Nitrite Negative (NEG) Urine Bilirubin Negative (NEG) Urine Urobilinogen Dipstick 0.2 mg/dL (0.2 mg/dL) Urine Leukocyte Esterase Negative (NEG) Urine RBC Occ /HPF (0-2) Urine WBC 0 /HPF (0-4) Urine Squamous Epithelial Cells Few /LPF Urine Bacteria 0 /HPF (0-FEW) Urine Mucus Slight /LPF VTE Prophylaxis Ordered VTE Prophylaxis Devices: Yes VTE Pharmacological Prophylaxi: No Assessment/Plan Assessment/Plan acute hearing loss right ear. new facial parathesia, CT head OK, CT angio done per Dr. Tran MRI brain ordered to eval for demylination or occlusion or other inflammatory or growth process admit obs Justifications for Admission Other Justification CORBIN BHAT MD Sep 20, 2020 18:17
[2020-09-20 18:25] VITALS: BP 114/76
[2020-09-20] MEDS ORDERED: ATOR10TA60 PO (20:54)
[2020-09-20] MEDS ORDERED: CELE-20 PO (20:54)
[2020-09-20] MEDS ORDERED: MELA1TAB44 PO (20:54)
[2020-09-20] MEDS ORDERED: ENOXAPARIN 40 MG/0.4 ML SYRINGE. SQ SCH (21:00)
[2020-09-20] MEDS ORDERED: ATORVASTATIN CALCIUM 20 MG TABLET PO SCH (21:00)
[2020-09-20] MEDS: OXYMETAZOLINE 0.05% NASAL SPRAY 30ML BOTTLE. NS SCH (22:04)
[2020-09-20 23:00] VITALS: BP 93/63
[2020-09-21 03:00] VITALS: BP 92/65
[2020-09-21 07:00] VITALS: BP 93/61
[2020-09-21] MEDS: OXYMETAZOLINE 0.05% NASAL SPRAY 30ML BOTTLE. NS SCH (08:51)
--- NOTE | 2020-09-21 09:04 | RAD ---
EXAMINATION: Magnetic resonance imaging (MRI) of the brain and brainstem without with contrast 09/22/19 7:13 AM Magnetic resonance angiography of the [place] of [place] without contrast HISTORY: Right facial numbness, loss of hearing in the right neuroforaminal. TECHNIQUE: Multiplanar multi-weighted MRI of the brain and brainstem was performed without intravenou s contrast using the general brain protocol. Noncontrast, flight magnetic resonance angiography of th e [place]oh of [place] performed. Maximum intensity projection images are provided. COMPARISON: None available. FINDINGS: The scalp and calvarium are normal. The superior sagittal sinus demonstrates normal venous flow. The corpus callosum is normal in shape and signal intensity. The posterior fossa is unremarkable. The p ituitary and sella are normal. The brainstem and craniocervical junction are unremarkable. Diffusion weighted images reveal no hyperintensities to suggest acute cerebral infarction. The suscep tibility weighted sequences reveal no evidence of acute or chronic hemorrhage. The ventricles are nor mal in size and position without evidence of hydrocephalus. There are no areas of abnormal contrast enhancement. The paranasal sinuses are normal. The visualized portions of the mastoids are unremarkable. The orbi ts appear normal. Normal flow voids are demonstrated in the carotid arteries and basilar artery. Vascular findings: Intracranial course and caliber of the internal carotid arteries appears normal. Ophthalmic segments are patent. Middle cerebral arteries are normal in course and caliber. Sylvian branches appear widely patent. Moderate size bilateral posterior communicating arteries are visualized. Vertebral arteries are not well profiled on this examination. Basilar artery is diminutive in caliber, without significa nt irregularity. Superior cerebellar arteries are patent. Posterior cerebral arteries are normal in c ourse and caliber. There is no aneurysm, vascular malformation or high-grade stenosis/large vessel oc clusion involving hoh of [place]. There is mild ectasia of the basilar tip measuring up to 3 mm wit h proximal basilar artery measuring 1.5 mm. IMPRESSION: No evidence for acute or subacute ischemia. No aneurysm, vascular formation or high-grade stenosis/large vessel occlusion involving hoh of [place]. 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 1 year follow-up MRA could be of benefit. Electronically signed by: Johanna Galvez MD (09/21/2020 9:02 AM) [id number]
--- NOTE | 2020-09-21 09:04 | RAD ---
EXAMINATION: Magnetic resonance imaging (MRI) of the brain and brainstem without with contrast 09/22/19 7:13 AM Magnetic resonance angiography of the [place] of [place] without contrast HISTORY: Right facial numbness, loss of hearing in the right neuroforaminal. TECHNIQUE: Multiplanar multi-weighted MRI of the brain and brainstem was performed without intravenou s contrast using the general brain protocol. Noncontrast, flight magnetic resonance angiography of th e [place] of [place] performed. Maximum intensity projection images are provided. COMPARISON: None available. FINDINGS: The scalp and calvarium are normal. The superior sagittal sinus demonstrates normal venous flow. The corpus callosum is normal in shape and signal intensity. The posterior fossa is unremarkable. The p ituitary and sella are normal. The brainstem and craniocervical junction are unremarkable. Diffusion weighted images reveal no hyperintensities to suggest acute cerebral infarction. The suscep tibility weighted sequences reveal no evidence of acute or chronic hemorrhage. The ventricles are nor mal in size and position without evidence of hydrocephalus. There are no areas of abnormal contrast enhancement. The paranasal sinuses are normal. The visualized portions of the mastoids are unremarkable. The orbi ts appear normal. Normal flow voids are demonstrated in the carotid arteries and basilar artery. Vascular findings: Intracranial course and caliber of the internal carotid arteries appears normal. Ophthalmic segments are patent. Middle cerebral arteries are normal in course and caliber. Sylvian branches appear widely patent. Moderate size bilateral posterior communicating arteries are visualized. Vertebral arteries are not well profiled on this examination. Basilar artery is diminutive in caliber, without significa nt irregularity. Superior cerebellar arteries are patent. Posterior cerebral arteries are normal in c ourse and caliber. There is no aneurysm, vascular malformation or high-grade stenosis/large vessel oc clusion involving [place] of [place]. There is mild ectasia of the basilar tip measuring up to 3 mm wit h proximal basilar artery measuring 1.5 mm. IMPRESSION: No evidence for acute or subacute ischemia. No aneurysm, vascular formation or high-grade stenosis/large vessel occlusion involving [place] of [place]. 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 1 year follow-up MRA could be of benefit. Electronically signed by: Johanna Galvez MD (09/21/2020 9:02 AM) [id number]
--- NOTE | 2020-09-21 09:09 | PDOC3 ---
Discharge Summary Visit Information Date of Admission: Sep 20, 2020 Date of Discharge: Sep 21, 2020 Final Diagnosis acute hearing loss right ear. new facial parathesia, sinusitis, probable eustacian tube clogged, better at DC Problems Medical Problems: (1) Facial paresthesia Status: Acute Brief Hospital Course Allergies Allergies Coded Allergies Type Severity Reaction Last Updated Verified banana Allergy Severe SWELLING 01/01/20 Yes walnut Allergy Severe 01/01/20 Yes [place] And Derivatives Allergy Intermediate Itching 01/01/20 Yes latex Allergy Intermediate Itching 01/01/20 Yes I S O L A T I O N *CONTACT* Allergy Unknown 01/01/20 Yes NSAIDS (Non-Steroidal Anti-Inflamma Adverse Reaction Mild Nausea and Vomiting 01/01/20 Yes Vital Signs Vital Signs Date Time Temp Pulse Resp B/P (MAP) Pulse Ox O2 Delivery O2 Flow Rate FiO2 09/21/20 07:00 96.9 65 18 93/61 (72) 97 Room Air 96.9 Lab Results Laboratory Tests Test 09/20/20 14:37 09/20/20 15:13 White Blood Count 6.7 x10^3/uL (4.0-11.0) Red Blood Count 4.20 x10^6/uL (3.50-5.40) Hemoglobin 13.0 g/dL (12.0-15.5) Hematocrit 39.3 % (36.0-47.0) Mean Corpuscular Volume 94 fL (79-100) Mean Corpuscular Hemoglobin 31 pg (25-35) Mean Corpuscular Hemoglobin Concent 33 g/dL (31-37) Red Cell Distribution Width 12.8 % (11.5-14.5) Platelet Count 269 x10^3/uL (140-400) Neutrophils (%) (Auto) 60 % (31-73) Lymphocytes (%) (Auto) 27 % (24-48) Monocytes (%) (Auto) 9 % (0-9) Eosinophils (%) (Auto) 3 % (0-3) Basophils (%) (Auto) 1 % (0-3) Neutrophils # (Auto) 4.0 x10^3/uL (1.8-7.7) Lymphocytes # (Auto) 1.8 x10^3/uL (1.0-4.8) Monocytes # (Auto) 0.6 x10^3/uL (0.0-1.1) Eosinophils # (Auto) 0.2 x10^3/uL (0.0-0.7) Basophils # (Auto) 0.1 x10^3/uL (0.0-0.2) Sodium Level 140 mmol/L (136-145) Potassium Level 3.8 mmol/L (3.5-5.1) Chloride Level 104 mmol/L (98-107) Carbon Dioxide Level 27 mmol/L (21-32) Anion Gap 9 (6-14) Blood Urea Nitrogen 20 mg/dL (7-20) Creatinine 0.9 mg/dL (0.6-1.0) Estimated GFR (Cockcroft-Gault) 65.2 BUN/Creatinine Ratio 22 (6-20) Glucose Level 147 mg/dL (70-99) Calcium Level 8.6 mg/dL (8.5-10.1) Magnesium Level 2.2 mg/dL (1.8-2.4) Total Bilirubin 0.4 mg/dL (0.2-1.0) Aspartate Amino Transf (AST/SGOT) 18 U/L (15-37) Alanine Aminotransferase (ALT/SGPT) 43 U/L (14-59) Alkaline Phosphatase 72 U/L (46-116) Creatine Kinase 85 U/L (26-192) Creatine Kinase MB (Mass) 0.9 ng/mL (0.0-3.6) Creatine Kinase MB Relative Index 1.1 % (0-4) Troponin I Quantitative < 0.017 ng/mL (0.000-0.055) Total Protein 7.3 g/dL (6.4-8.2) Albumin 3.9 g/dL (3.4-5.0) Albumin/Globulin Ratio 1.1 (1.0-1.7) Urine Collection Type Unknown Urine Color Yellow Urine Clarity Clear Urine pH 6.0 (<5.0-8.0) Urine Specific [place] 1.020 (1.000-1.030) Urine Protein Negative mg/dL (NEG-TRACE) Urine Glucose (UA) Negative mg/dL (NEG) Urine Ketones (Stick) Negative mg/dL (NEG) Urine Blood Negative (NEG) Urine Nitrite Negative (NEG) Urine Bilirubin Negative (NEG) Urine Urobilinogen Dipstick 0.2 mg/dL (0.2 mg/dL) Urine Leukocyte Esterase Negative (NEG) Urine RBC Occ /HPF (0-2) Urine WBC 0 /HPF (0-4) Urine Squamous Epithelial Cells Few /LPF Urine Bacteria 0 /HPF (0-FEW) Urine Mucus Slight /LPF Laboratory Tests Test 09/20/20 14:37 09/20/20 15:13 White Blood Count 6.7 x10^3/uL (4.0-11.0) Red Blood Count 4.20 x10^6/uL (3.50-5.40) Hemoglobin 13.0 g/dL (12.0-15.5) Hematocrit 39.3 % (36.0-47.0) Mean Corpuscular Volume 94 fL (79-100) Mean Corpuscular Hemoglobin 31 pg (25-35) Mean Corpuscular Hemoglobin Concent 33 g/dL (31-37) Red Cell Distribution Width 12.8 % (11.5-14.5) Platelet Count 269 x10^3/uL (140-400) Neutrophils (%) (Auto) 60 % (31-73) Lymphocytes (%) (Auto) 27 % (24-48) Monocytes (%) (Auto) 9 % (0-9) Eosinophils (%) (Auto) 3 % (0-3) Basophils (%) (Auto) 1 % (0-3) Neutrophils # (Auto) 4.0 x10^3/uL (1.8-7.7) Lymphocytes # (Auto) 1.8 x10^3/uL (1.0-4.8) Monocytes # (Auto) 0.6 x10^3/uL (0.0-1.1) Eosinophils # (Auto) 0.2 x10^3/uL (0.0-0.7) Basophils # (Auto) 0.1 x10^3/uL (0.0-0.2) Sodium Level 140 mmol/L (136-145) Potassium Level 3.8 mmol/L (3.5-5.1) Chloride Level 104 mmol/L (98-107) Carbon Dioxide Level 27 mmol/L (21-32) Anion Gap 9 (6-14) Blood Urea Nitrogen 20 mg/dL (7-20) Creatinine 0.9 mg/dL (0.6-1.0) Estimated GFR (Cockcroft-Gault) 65.2 BUN/Creatinine Ratio 22 (6-20) Glucose Level 147 mg/dL (70-99) Calcium Level 8.6 mg/dL (8.5-10.1) Magnesium Level 2.2 mg/dL (1.8-2.4) Total Bilirubin 0.4 mg/dL (0.2-1.0) Aspartate Amino Transf (AST/SGOT) 18 U/L (15-37) Alanine Aminotransferase (ALT/SGPT) 43 U/L (14-59) Alkaline Phosphatase 72 U/L (46-116) Creatine Kinase 85 U/L (26-192) Creatine Kinase MB (Mass) 0.9 ng/mL (0.0-3.6) Creatine Kinase MB Relative Index 1.1 % (0-4) Troponin I Quantitative < 0.017 ng/mL (0.000-0.055) Total Protein 7.3 g/dL (6.4-8.2) Albumin 3.9 g/dL (3.4-5.0) Albumin/Globulin Ratio 1.1 (1.0-1.7) Urine Collection Type Unknown Urine Color Yellow Urine Clarity Clear Urine pH 6.0 (<5.0-8.0) Urine Specific [place] 1.020 (1.000-1.030) Urine Protein Negative mg/dL (NEG-TRACE) Urine Glucose (UA) Negative mg/dL (NEG) Urine Ketones (Stick) Negative mg/dL (NEG) Urine Blood Negative (NEG) Urine Nitrite Negative (NEG) Urine Bilirubin Negative (NEG) Urine Urobilinogen Dipstick 0.2 mg/dL (0.2 mg/dL) Urine Leukocyte Esterase Negative (NEG) Urine RBC Occ /HPF (0-2) Urine WBC 0 /HPF (0-4) Urine Squamous Epithelial Cells Few /LPF Urine Bacteria 0 /HPF (0-FEW) Urine Mucus Slight /LPF Brief Hospital Course Ms. Salas is a 54 old female, admit with sudden hearing loss to right ear, then dizzy and weak and presyncopal , then parathesia to face, w/u stroke neg, NIH was 0 CT head, CT angio, MRI and angio done, Dr. Tran to Dc plan DC home, her symptoms are improved today Discharge Information Condition at Discharge: Improved Follow Up: Weeks Disposition/Orders: D/C to Home Scheduled Atorvastatin Calcium (Atorvastatin Calcium) 10 Mg Tablet, 1 TAB PO DAILY for HIGH CHOLESTEROL, (Reported) Entered as Reported by: PAU AUGUSTE on 09/20/202053 Last Action: New Order on 09/20/202053 by PAU AUGUSTE Celecoxib (Celecoxib) 200 Mg Capsule, 1 CAP PO DAILY for ARTHRITIS, (Reported) Entered as Reported by: PAU AUGUSTE on 09/20/202053 Last Action: New Order on 09/20/202053 by PAU AUUGSTE Melatonin (Melatonin) 1 Mg Tablet, 1 MG PO QHS for SLEEP, (Reported) Entered as Reported by: PAU AUGUSTE on 09/20/202053 Last Action: New Order on 09/20/202053 by PAU AUGUSTE Patient Instructions Patient Instructions pt seen, examined Justicifation of Admission Dx: Justifications for Admission: Justification of Admission Dx: No (obs) CORBIN BHAT MD Sep 21, 2020 09:09
[2020-09-21 11:00] VITALS: BP 103/66
--- NOTE | 2020-09-21 16:33 | PDOC2 ---
CONSULT Date of Consult Date of Consult DATE: 09/21/20 TIME: 16:33 Reason for Consult Reason for Consult: difficulty hearing Identification/Chief Complaint Chief Complaint difficulty hearing History of Present Illness Reason for Visit: This patient is 54-year-old woman who presented with complaint of lightheadedness. Patient reports she is not feeling well for over 1 day prior to presentation. When she woke up patient was having some lightheadedness, some difficulty with hearing on right year. Patient denied any difficulty speaking tingling numbness on the face. Patient denied any focal extremity weakness. Patient was having some symptoms of lightheadedness, was walking slowly. Patient denied any complaint of headache chest pain shortness of breath. Patient had improvement in symptoms Past Medical History Cardiovascular: No pertinent hx Pulmonary: Other GI: GERD Heme/Onc: No pertinent hx Hepatobiliary: No pertinent hx Psych: No pertinent hx Rheumatologic: No pertinent hx Infectious disease: No pertinent hx Renal/: No pertinent hx Endocrine: No pertinent hx Past Surgical History Past Surgical History: , Other Family History Family History: Cancer, Diabetes, Other Social History No ALCOHOL: none Drugs: None Lives: with Family Current Problem List Problem List Problems Medical Problems: (1) Facial paresthesia Status: Acute Current Medications Current Medications Current Medications Meclizine HCl (Antivert) 25 mg 1X ONCE PO Last administered on 09/20/20at 14:52; Start 09/20/20 at 14:45; Stop 09/20/20 at 14:46; Status DC Iohexol (Omnipaque 350 Mg/ml) 75 ml 1X ONCE IV Last administered on 09/20/20at 17:18; Start 09/20/20 at 17:15; Stop 09/20/20 at 17:16; Status DC Info (CONTRAST GIVEN -- Rx MONITORING) 1 each PRN DAILY PRN MC SEE COMMENTS; Start 09/20/20 at 17:15; Stop 09/22/20 at 17:14 Aspirin (Elizabeth Aspirin) 325 mg 1X ONCE PO Last administered on 09/20/20at 22:04; Start 09/20/20 at 17:30; Stop 09/20/20 at 17:32; Status DC Atorvastatin Calcium (Lipitor) 20 mg QHS PO ; Start 09/20/20 at 21:00 Enoxaparin Sodium (Lovenox Per Pharmacy Prophylaxis Dosing) 1 each PRN DAILY PRN MC SEE COMMENTS; Start 09/20/20 at 18:30 Enoxaparin Sodium (Lovenox 40mg Syringe) 40 mg Q24H SQ ; Start 09/20/20 at 21:00 Oxymetazoline HCl (Afrin) 2 spray BID NS Last administered on 09/21/20at 08:51; Start 09/20/20 at 21:30 Active Scripts Active Reported Celecoxib 200 Mg Capsule 1 Cap PO DAILY Atorvastatin Calcium 10 Mg Tablet 1 Tab PO DAILY Melatonin 1 Mg Tablet 1 Mg PO QHS Allergies Allergies: Coded Allergies: banana (Verified Allergy, Severe, SWELLING, 01/01/20) walnut (Verified Allergy, Severe, 01/01/20) [place] And Derivatives (Verified Allergy, Intermediate, Itching, 01/01/20) latex (Verified Allergy, Intermediate, Itching, 01/01/20) I S O L A T I O N *CONTACT* (Verified Allergy, Unknown, 01/01/20) mrsa NSAIDS (Non-Steroidal Anti-Inflamma (Verified Adverse Reaction, Mild, Nausea and Vomiting, 01/01/20) Physical Exam Physical Exam General no acute distress. HEENT: Normocephalic and atraumatic. NECK: Supple without bruit Respiratory: Clear to auscultation bilaterally Heart: Regular rate and rhythm, S1S2 normal NEUROLOGIC: Mental status Alert oriented. Cranial nerve equally reactive pupils, and intact extraocular movements. No facial asymmetry. Palate elevates and tongue protrudes in midline. Reflexes are 1-2 with flexor plantar responses. Coordination no dysmetria Strength able to move all exts equally. Sensory exam is intact for light touch and pinprick. Gait in bed. A 10-point review of systems was obtained. Other than the history of present illness the remainder of the review of systems is negative. Vitals VITALS Vital Signs Date Time Temp Pulse Resp B/P (MAP) Pulse Ox O2 Delivery O2 Flow Rate FiO2 09/21/20 11:00 96.3 65 18 103/66 (78) 96 Room Air 96.3 Labs Labs Laboratory Tests Test 09/20/20 14:37 09/20/20 15:13 White Blood Count 6.7 x10^3/uL (4.0-11.0) Red Blood Count 4.20 x10^6/uL (3.50-5.40) Hemoglobin 13.0 g/dL (12.0-15.5) Hematocrit 39.3 % (36.0-47.0) Mean Corpuscular Volume 94 fL (79-100) Mean Corpuscular Hemoglobin 31 pg (25-35) Mean Corpuscular Hemoglobin Concent 33 g/dL (31-37) Red Cell Distribution Width 12.8 % (11.5-14.5) Platelet Count 269 x10^3/uL (140-400) Neutrophils (%) (Auto) 60 % (31-73) Lymphocytes (%) (Auto) 27 % (24-48) Monocytes (%) (Auto) 9 % (0-9) Eosinophils (%) (Auto) 3 % (0-3) Basophils (%) (Auto) 1 % (0-3) Neutrophils # (Auto) 4.0 x10^3/uL (1.8-7.7) Lymphocytes # (Auto) 1.8 x10^3/uL (1.0-4.8) Monocytes # (Auto) 0.6 x10^3/uL (0.0-1.1) Eosinophils # (Auto) 0.2 x10^3/uL (0.0-0.7) Basophils # (Auto) 0.1 x10^3/uL (0.0-0.2) Sodium Level 140 mmol/L (136-145) Potassium Level 3.8 mmol/L (3.5-5.1) Chloride Level 104 mmol/L (98-107) Carbon Dioxide Level 27 mmol/L (21-32) Anion Gap 9 (6-14) Blood Urea Nitrogen 20 mg/dL (7-20) Creatinine 0.9 mg/dL (0.6-1.0) Estimated GFR (Cockcroft-Gault) 65.2 BUN/Creatinine Ratio 22 (6-20) Glucose Level 147 mg/dL (70-99) Calcium Level 8.6 mg/dL (8.5-10.1) Magnesium Level 2.2 mg/dL (1.8-2.4) Total Bilirubin 0.4 mg/dL (0.2-1.0) Aspartate Amino Transf (AST/SGOT) 18 U/L (15-37) Alanine Aminotransferase (ALT/SGPT) 43 U/L (14-59) Alkaline Phosphatase 72 U/L (46-116) Creatine Kinase 85 U/L (26-192) Creatine Kinase MB (Mass) 0.9 ng/mL (0.0-3.6) Creatine Kinase MB Relative Index 1.1 % (0-4) Troponin I Quantitative < 0.017 ng/mL (0.000-0.055) Total Protein 7.3 g/dL (6.4-8.2) Albumin 3.9 g/dL (3.4-5.0) Albumin/Globulin Ratio 1.1 (1.0-1.7) Urine Collection Type Unknown Urine Color Yellow Urine Clarity Clear Urine pH 6.0 (<5.0-8.0) Urine Specific [place] 1.020 (1.000-1.030) Urine Protein Negative mg/dL (NEG-TRACE) Urine Glucose (UA) Negative mg/dL (NEG) Urine Ketones (Stick) Negative mg/dL (NEG) Urine Blood Negative (NEG) Urine Nitrite Negative (NEG) Urine Bilirubin Negative (NEG) Urine Urobilinogen Dipstick 0.2 mg/dL (0.2 mg/dL) Urine Leukocyte Esterase Negative (NEG) Urine RBC Occ /HPF (0-2) Urine WBC 0 /HPF (0-4) Urine Squamous Epithelial Cells Few /LPF Urine Bacteria 0 /HPF (0-FEW) Urine Mucus Slight /LPF Assessment/Plan Assessment/Plan This patient is 54-year-old woman who presented with complaint of lightheadedness. Patient reports she is not feeling well for over 1 day prior to presentation. When she woke up patient was having some lightheadedness, some difficulty with hearing on right year. Patient denied any difficulty speaking tingling numbness on the face. Patient denied any focal extremity weakness. Patient was having some symptoms of lightheadedness, was walking slowly. Patient denied any complaint of headache chest pain shortness of breath. Patient had improvement in symptoms With episode of lightheadedness, presyncope, patient had improvement in symptoms. Patient has some worsening of anxiety due to recent stress from family situations Patient was evaluated for a T IA. Patient had improvement in symptoms. Patient had nonfocal neurological exam. MRI of brain did not show any evidence of acute intracranial etiology no evidence of acute hemorrhage or mass. There was no evidence of acute stroke. No evidence of aneurysm or high- grade stenosis. Mild ectasia noted of the basilar tip. Recommended 1 a year follow-up MRI study. Patient was started on low-dose aspirin for stroke prevention. Hyperlipidemia on statin. Patient is not interested in getting further workup in patient. Recommended getting echo with her primary care doctor The concern for sinusitis, patient will follow up with ENT. Continue medical management. Plan discussed at length Thank you for allowing me to take part in this patient's care. Please not hesitate to contact me with questions. Transcribed using dictation device. The dictation could contain irregularities inherent in the voice to text conversion software, which may not be detected during the document review process. Please contact our office in case of any confusion or for any clarification, as needed. JOSHUA CASTILLO MD Sep 21, 2020 16:33
--- NOTE | 2020-09-21 17:00 | NUR ---
Discharge Note: [facility] Discharge instructions and discharge home medications reviewed with Patient and a copy given. All questions have been answered and understanding verbalized. The following instructions and handouts were given: f/u with PCP within two weeks for ECHO. F/U with Dr. Jackson within two months. F/U with ENT if symptoms persist. Recommend F/U MRI in one year. Start Taking Baby Aspirin Daily. Discontinued lines and drains: Peripheral IV intact. Patient discharged to Home or Self Care with Self via Amb[facility].
== END 2020-09-21 17:00 | disposition home or self-care (01) | DRG 156 ==
LOC: ER 14:03 → 6 SOUTH 16:47
PROVIDERS: ADMIT Internal Medicine; ATTEND Internal Medicine
DX: H91.91 Unspecified hearing loss, right ear (principal); E78.5 Hyperlipidemia, unspecified; F06.4 Anxiety disorder due to known physiological condition; K21.9 Gastro-esophageal reflux disease without esophagitis; K57.90 Diverticulosis of intestine, part unspecified, without perforation or abscess without bleeding; M54.30 Sciatica, unspecified side; Z83.3 Family history of diabetes mellitus; Z98.891 History of uterine scar from previous surgery; Z88.8 Allergy status to other drugs, medicaments and biological substances; Z91.041 Radiographic dye allergy status; Z91.040 Latex allergy status
CPT/HCPCS: 36415; 70450; 70496; 70498; 70544; 70551; 80053; 81001; 82553; 83735; 84484; 85025; 93005; Q9967; G0378; J8597

== ENCOUNTER → 2021-01-16 | Outpatient (CLI) | payer OTHER ==
[~2021-01-16] MED LIST changes: +ATOR10TA60 PO; +CELE-20 PO; +MELA1TAB44 PO
--- NOTE | 2021-01-16 10:44 | RAD ---
EXAM: Bilateral digital screening mammogram with tomosynthesis. HISTORY: 55-year-old female presents for screening mammography. TECHNIQUE: Full-field digital craniocaudal and mediolateral oblique 2D and 3D tomosynthesis images of both breasts are obtained for evaluation. Computer aided detection was applied. COMPARISON: 01/09/2020 BREAST PARENCHYMAL DENSITY: Level C - Heterogeneously dense. FINDINGS: There is no new suspicious mass, microcalcification or region of architectural distortion. IMPRESSION: BI-RADS Category 2: Benign finding(s). RECOMMENDATION: Annual mammography is recommended. If your mammogram demonstrates that you have dense breast tissue, which could hide abnormalities, and if you have other risk factors for breast cancer that have been identified, you might benefit from s upplemental screening tests that may be suggested by your ordering physician. Dense breast tissue, i n and of itself, is a relatively common condition. This information is not provided to cause undue c oncern, but rather to raise your awareness and to promote discussion with your physician regarding th e presence of other risk factors, in addition to dense breast tissue. A report of your mammography re sults will be sent to you and your physician. You should contact your physician if you have any ques tions or concerns regarding this report. Mammography is a sensitive method for finding small breast cancers, but it does not detect them all a nd is not a substitute for careful clinical examination. A negative mammogram does not negate a clin ically suspicious finding and should not result in delay in biopsying a clinically suspicious abnorma lity. PQRS compliance statement - Patient information was entered into a reminder system with a target due date for the next mammogram. "Our facility is accredited by the [employer] Mammography Program." Electronically signed by: Melissa Stock MD (01/16/2021 10:42 AM) [id number]
== END ==
LOC: MAMMO 09:14
PROVIDERS: ATTEND Family Medicine
DX: Z12.31 Encounter for screening mammogram for malignant neoplasm of breast (principal)
CPT/HCPCS: 77063; 77067

== ENCOUNTER 2021-10-09 06:11 | Day surgery (SDC) | payer OTHER ==
[~2021-10-09] VITALS: Ht 165.1 cm; Wt 77.1 kg
[~2021-10-09 06:11] MED LIST changes: +CLIN-94 PO; -CLIN300C9 PO; +HYDROmorphone 2 MG/ML INJ. IVP PRN; +IV RINGERS,LACTATED 1000ML 1,000 ML IV SCH; +MORPHINE SULFATE 2 MG/ML INJ. IVP PRN; +PROCHLORPERAZINE 10 MG/2 ML VIAL. IVP PRN; +ceFAZolin SODIUM IV Push 1 GM VIAL. IVP PRN; +fentaNYL PF VIAL 100 MCG/2 ML VIAL IVP PRN
[2021-10-09 06:38] VITALS: BP 116/71
[2021-10-09] MEDS ORDERED: SEVOFLURANE 31 TO 60 MINUTES. IH ONE (06:47)
[2021-10-09] MEDS ORDERED: PROPOFOL 10 MG/ML (20ML) VIAL. IV ONE (06:48)
[2021-10-09] MEDS ORDERED: LIDOCAINE 2% PF 5 ML VIAL. ONE (06:48)
[2021-10-09] MEDS ORDERED: BUPIVACAINE MPF 0.5% 30 ML VIAL. ONE (07:00)
[2021-10-09] MEDS ORDERED: LIDOCAINE 1% Multi-Dose 20 ML VIAL. ONE (07:00)
[2021-10-09] MEDS ORDERED: ACET1TAB33 PO (07:22)
--- NOTE | 2021-10-09 07:23 | DISCH ---
DISCHARGE INSTRUCTIONS Condition on Discharge Condition on Discharge: Stable Activity After Discharge Activity Instructions for Disc: Resume previous activity Other activity instructions: keep elevated, wiggle fingers Bathing Instructions: Shower-keep dressing dry Lifting Instructions after Dis: No heavy lifting, No pulling or pushing Weight Bearing Status after Di: No restrictions, As tolerated Diet after Discharge Diet after Discharge: Regular Diet Texture: Regular Swallowing Supervision: None needed Contacting the DR. after DC Call your doctor for: Concerns you may have Follow-Up Follow up with: Rogelio in 2wks Treatment/Equipment after DC Adaptive Equipment Issued: None CIARRA STODDARD II, MD Oct 09, 2021 07:23
[2021-10-09] MEDS ORDERED: ceFAZolin SODIUM IV Push 1 GM VIAL. IVP ONE (07:42)
--- NOTE | 2021-10-09 07:59 | PDOC4 ---
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 Please see my outpatient consult note for further details. We had a discussion of the risks benefits and alternatives to the above surgery and she elected to proceed. Description of procedure: Patient was greeted in the preoperative area by myself or the correct extremity was verified and marked. She was taken to the operative suite and antibiotics were started as she was brought back. Once in the operating room, she was transferred gently supine to the operating table and secured to the bed with all pressure points padded. At this point myself and the OR team noted the bed was unable to be locked and after troubleshooting it we elected to bring in a new bed and transfer the patient gently supine to the new bed and continued on. The arm board was attached to the new bed. Nonsterile tourniquet was secured in place to her right upper extremity. We then proceeded prep and drape right upper extremity in her usual sterile fashion and conducted our standard preoperative timeout. I then palpated anatomy and made a transverse incision at the volar aspect adjacent to her metacarpal head and dissected subcutaneous tissue with a mosquito and identified the A1 walt and released it sharply with tenotomy's. I then used a mosquito to gently deliver the flexor tendons into the operative field to help and tried accomplish a complete release and I was confident I had. After this, the wound was thoroughly irrigated out. Bipolar cautery was used for hemostasis. Local anesthetic was injected in the periincisional soft tissues. Skin was closed with simple interrupted 3-0 nylon. Xeroform gauze cast padding and an Jace wrap were then applied. She tolerated surgery well. No complications. All counts correct x2 prior to wound closure. At the conclusion she was awakened and transferred gently supine to the recovery room cart and taken to PACU in stable and extubated condition. Postoperative plan is to encourage gentle range of mot ion and elevation of the affected extremity, she will see me in 2 weeks, sooner should a problem arise. She will be discharged home today. SAMUEL STODDARD II, MD Oct 09, 2021 07:59
[2021-10-09] MEDS ORDERED: ACETAMINOPHEN/CODEINE 300/30MG TABLET. PO ONE (08:15)
[2021-10-09 08:45] VITALS: BP 106/70
== END 2021-10-09 09:30 | disposition home or self-care (01) ==
LOC: SURG 06:11
PROVIDERS: ATTEND Orthopaedic Surgery Sports Medicine
DX: M65.331 Trigger finger, right middle finger (principal); I10 Essential (primary) hypertension; E78.00 Pure hypercholesterolemia, unspecified; K21.9 Gastro-esophageal reflux disease without esophagitis; M19.90 Unspecified osteoarthritis, unspecified site; Z79.899 Other long term (current) drug therapy; Z98.890 Other specified postprocedural states; Z72.89 Other problems related to lifestyle; Z91.040 Latex allergy status; Z88.6 Allergy status to analgesic agent; Z88.8 Allergy status to other drugs, medicaments and biological substances
CPT/HCPCS: 26055; A4930; A6402; J0690; J2704; J3490; A6452